=== PATIENT | female | born 1985 | race Caucasian/White ===

== ENCOUNTER 2017-09-26 11:36 | Emergency (ER) | payer MEDICAID, SELFPAY ==
[2017-09-26 11:38] VITALS: BP 119/80; PULSE 78; RESP 16; TEMP 37.2; O2SAT 99; BMI 31.7
--- NOTE | 2017-09-26 12:18 | CT_ITS ---
STUDY: CT ABDOMEN AND PELVIS WITH CONTRAST REASON FOR EXAM: Female, 32 years old. Bloody stools since yesterday. RADIATION DOSAGE (If Supplied By Facility): CTDIvol = ( 16.31 ) mGy, DLP = ( 1080.31 ) mGycm TECHNIQUE: Transaxial images were obtained from the dome of the diaphragm to the symphysis pubis with oral contrast. 100 ml of Isovue 300 contrast was administered. Sagittal and coronal images were reconstructed. Individualized dose optimization techniques were used for this CT. COMPARISON: Comparison is made with prior study dated June 02, 2015. FINDINGS: Mild degree of increased linear markings at the lung bases with areas of confluence worse on the right side. This is suggestive of a bibasilar atelectasis. The visualized portions of the heart are within normal limits. There is a 9.1 mm x 12.6 mm focal area of enhancement along the medial aspect of the right lobe of the liver adjacent to the falciform ligament. This may represent a small hemangioma. Normal gallbladder and extrahepatic biliary system. Normal spleen. Normal pancreas. There is a small, circumscribed, smooth, low attenuation left adrenal mass, consistent with an adrenal adenoma. This is unchanged. Normal right adrenal gland. Normal right kidney. Normal left kidney. Normal visualized stomach. Normal small intestine. Mild degree of diffuse thickening of the sigmoid colon and descending colon. Colitis should be ruled out. Scattered sigmoid diverticula are present. The appendix is visualized and appears normal. Normal abdominal aorta. Normal inferior vena cava. Normal retroperitoneum. Normal urinary bladder. There is absence of the uterus consistent with a prior hysterectomy. There is a small umbilical hernia containing fat. Deformity of the anterior superior endplates of the L4 and L5 vertebrae in keeping with limbus vertebrae. CT/Abdomen/Pelvis WITH Contrast IMPRESSION: Findings suggestive of colitis involving the descending colon and sigmoid colon. Electronically Signed: Esteban Alvarenga MD at 14:26 EDT Tel [phone], Service support ,
--- NOTE | 2017-09-26 12:21 | ED.DCSUM_ITS ---
- ER Visit Summary Date of Service: 09/26/17 Chief Complaint: Abdominal pain, nausea and vomiting History of Present Illness: The patient is a 32 F with lower abdominal cramping over the past 2 days. She had loose stool with some mucus and blood since yesterday as well. She reports mild vomiting. She has had no fever or chills. She denies recent travel. She has not been drinking well water. She has no history of IBS. Physical Examination: Vital signs are unremarkable. Patient's lying in bed no acute distress. She is nontoxic appearing. Head neck examination is unremarkable. Heart is regular rate and rhythm. Lung sounds are clear. Abdomen is soft with tenderness in the epigastric region as well as across the lower abdomen. There is no guarding or rebound. Active bowel sounds are noted throughout. Test Results: CBC reveals a white count 11.7 with normal differential. Chemistry studies are normal. LFTs and lipase are normal. Urinalysis is normal. CT abdomen pelvis with contrast reveals colitis of the descending and sigmoid colon. Emergency Department Course and Treatment: Patient is given 0.5 mg of Dilaudid and 6.25 mg of Phenergan. On repeat evaluation she is much more comfortable. My suspicion for ischemic colitis is very low. I believe she either has bacterial or viral etiology of her colitis. She will be treated with a course of Augmentin as she does have an allergy to Cipro. She be given Phenergan for home as well. Treatment Plan: [] Disposition: Discharge Impression: Colitis This note was generated with [employer] dictation software. It may contain incorrect words, spelling, and punctuation that were not noted in review of the chart prior to signing ED Disposition - Plan for ED Patient: Chief Complaint: Abd Pain Referrals: Saleem Admas MD [NON-STAFF] -
[2017-09-26] MEDS: 0.9% Normal Saline 1,000 ML 150 ML IV (12:38)
[2017-09-26] MEDS: HYDROmorphone 1 MG/ML Syringe 0.5 MG IV (12:39)
[2017-09-26] MEDS: proMETHazine 25 MG/ML Syringe 6.25 MG IV (12:39)
[2017-09-26 12:41] LABS: Bacteria 0 SEEN /hpf (None Seen); Mucous, Urine 0 SEEN /hpf (<or=2+); Red Blood Cells-Urine 0 SEEN /hpf (0-5); White Blood Cells 0 SEEN /hpf (0-5)
[2017-09-26 12:49] LABS: Color, Urine Yellow (Yellow); Glucose, Dipstick Normal (Normal); Ketone-Dipstick Negative (Negative); Leukocyte Esterase-Dipstick Negative /ul (Negative); Nitrite-Dipstick Negative (Negative); Occult Blood-Urine Negative /ul (Negative); Protein-Dipstick Negative (Negative); Urine Bilirubin Dipstick Negative (Negative); Urine Clarity Clear (Clear); Urine Urobilinogen Normal (Normal)
[2017-09-26 12:50] LABS: Absolute Lymphocyte Count 2.31 X10^3/ul (0.83-4.51); Absolute Neutrophil Count 8.1 X10^3/uL (2.0-7.7); Basophil# 0.05 X10^3/uL; Basophil% 0.4 % (0-1); Eosinophil# 0.18 X10^3/uL; Eosinophils% 1.5 % (0-5); Hematocrit 38.6 % (37-47); Hemoglobin 13.2 g/dl (12.0-15.0); Lymphocyte # 2.31 X10^3/ul (4.0); Lymphocyte % 19.8 % (19-41); Mean Corp Hgb Conc 34.2 g/gl (32-36); Mean Corpuscular Hgb 30.2 pg (27.0-32.0); Mean Corpuscular Volume 88.3 fL (81-99); Mean Platelet Vol. 12.5 fl (6.2-12.0); Monocyte# 0.99 X10^3/uL; Monocyte% 8.5 % (0-10); Neutrophil # 8.13 X10^3/uL (2.7-7.7); Neutrophil % 69.6 % (47-70); POSITIVE COUNT NO; POSITIVE DIFFERENTIAL NO; POSITIVE MORPHOLOGY NO; Platelet Count 206 K/mm3 (150-450); RBC Distribution Width SD 38.2 fl (35.1-43.9); Red Blood Count 4.37 M/mm3 (4.2-5.4); White Blood Count 11.7 K/mm3 (4.4-11.0)
[2017-09-26 12:57] LABS: Squamous Epithelial Cells - UA 0-5 SEEN /hpf (5-10)
[2017-09-26 13:02] LABS: AST(SGOT) 11 U/L (15-37); Alanine Aminotransfer ALT/SGPT 13 U/L (13-56); Albumin, Serum 3.4 g/dL (3.2-5.0); Alkaline Phosphatase 104 U/L (45-117); Anion Gap 9 (5-15); BUN 10 mg/dL (7-18); BUN/Creat Ratio 16.3 RATIO (10-20); Bilirubin, Direct 0.08 mg/dL (0.00-0.30); Calcium,Total 9.1 mg/dL (8.5-10.1); Chloride 108 mmol/L (98-107); Creatinine, Serum 0.62 mg/dL (0.55-1.02); EST Glomerular Filtration Rate 119 mL/min (>60); Est Glom Filt Rate - Afr Amer 144 mL/min (>60); Globulin 3.6 g/dL (2.2-4.2); Glucose 79 mg/dL (74-106); Lipase 162 U/L (73-393); Potassium 3.8 mmol/L (3.5-5.1); Sodium Level 141 mmol/L (136-145)
[2017-09-26 14:35] VITALS: RESP 17
--- NOTE | 2017-09-26 15:52 | ED.DEP ---
ED Disposition - Plan for ED Patient: Disposition: Home or Assisted Living Chief Complaint: Abd Pain Instructions: ED Gastroenteritis Bacterial Prescriptions: proMETHazine tablet [Phenergan] 0.5 - 1 tab PO Q6H PRN PRN #10 tablet PRN Reason: Nausea Amox/Clavulanate Tablet [Augmentin Tablet] 875 mg PO Q12H #20 tablet Referrals: Saleem Adams MD [NON-STAFF] - 1 Week
[2017-09-26] MEDS: Amox/Clavulanate 875 MG Tablet PO (16:06)
== END 2017-09-26 16:11 | disposition home or self-care (01) ==
PROVIDERS: Emergency Provider Emergency Medicine; Family Provider Family Medicine; PCP Family Medicine
DX: K52.9 Noninfective gastroenteritis and colitis, unspecified (principal); J45.909 Unspecified asthma, uncomplicated; Z72.0 Tobacco use; F32.9 Major depressive disorder, single episode, unspecified
CPT/HCPCS: 74177; 80048; 80076; 81001; 83690; 85025; 99284; J7030; Q9967; A4216

== ENCOUNTER 2017-10-18 15:22 | Emergency (ER) | payer MEDICAID, SELFPAY ==
--- NOTE | 2017-10-18 15:40 | DT_ITS ---
This patient was seen during an EMR downtime October 16, 2017 - October 23, 2017. This patient may have a combination of paper and electronic documentation or all paper documentation. All documentation is viewable within the e-chart portion of [facility] for each patient visit.
--- NOTE | 2017-10-18 15:55 | CT_ITS ---
STUDY: CT ABDOMEN AND PELVIS WITH CONTRAST REASON FOR EXAM: Female, 32 years old. Lower abdominal pain RADIATION DOSAGE (If Supplied By Facility): CTDIvol = ( 15.46 ) mGy, DLP = ( 1046.55 ) mGycm TECHNIQUE: Transaxial images were obtained from the dome of the diaphragm to the symphysis pubis without oral contrast. 100ML ml of Isovue 300 contrast was administered. Sagittal and coronal images were reconstructed. Individualized dose optimization techniques were used for this CT. COMPARISON: None. FINDINGS: The visualized lung bases are unremarkable. The visualized portions of the heart are within normal limits. Normal liver. Normal gallbladder and extrahepatic biliary system. Normal spleen. Normal pancreas. Normal bilateral adrenal glands. Normal right kidney. 2 stones are seen in left kidney measuring 3 and 2 mm. There is no hydronephrosis. Normal visualized stomach. Normal small intestine. There is diverticulosis, with thickening of the sigmoid colon wall, and pericolonic inflammation changes consistent with acute diverticulitis. The appendix is visualized and appears normal. Normal abdominal aorta. Normal inferior vena cava. Normal retroperitoneum. Normal urinary bladder. Normal abdominal wall. Normal osseous structures. CT/Abdomen/Pelvis WITH Contrast IMPRESSION: Sigmoid diverticulitis. 2 stones are seen in left kidney measuring 3 and 2 mm. There is no hydronephrosis. Electronically Signed: Dena Caro MD at 2:49 EDT Tel , Service support ,
[2017-10-21 08:09] LABS: AST(SGOT) 17 U/L (15-37); Alanine Aminotransfer ALT/SGPT 17 U/L (13-56); Albumin, Serum 3.8 g/dL (3.2-5.0); Alkaline Phosphatase 124 U/L (45-117); Anion Gap 6 (5-15); BUN 9 mg/dL (7-18); BUN/Creat Ratio 13.6 RATIO (10-20); Calcium,Total 9.4 mg/dL (8.5-10.1); Chloride 109 mmol/L (98-107); Creatinine, Serum 0.66 mg/dL (0.55-1.02); EST Glomerular Filtration Rate 110 mL/min (>60); Est Glom Filt Rate - Afr Amer 133 mL/min (>60); Globulin 3.8 g/dL (2.2-4.2); Glucose 74 mg/dL (74-106); Potassium 4.4 mmol/L (3.5-5.1); Protein, Total 7.6 g/dL (6.4-8.2); Sodium Level 143 mmol/L (136-145)
[2017-10-21 09:28] LABS: White Blood Count 9.9 K/mm3 (4.4-11.0)
[2017-10-21 09:29] LABS: Absolute Lymphocyte Count 3.16 X10^3/ul (0.83-4.51); Absolute Neutrophil Count 5.8 X10^3/uL (2.0-7.7); Basophil% 0.3 % (0-1); Eosinophils% 2.5 % (0-5); Hemoglobin 14.8 g/dl (12.0-15.0); Lymphocyte # 3.16 X10^3/ul (4.0); Mean Corp Hgb Conc 33.6 g/gl (32-36); Mean Corpuscular Hgb 30.1 pg (27.0-32.0); Mean Corpuscular Volume 89.4 fL (81-99); Mean Platelet Vol. 11.8 fl (6.2-12.0); Monocyte# 0.63 X10^3/uL; Monocyte% 6.4 % (0-10); Neutrophil % 58.7 % (47-70); POSITIVE COUNT NO; POSITIVE DIFFERENTIAL NO; POSITIVE MORPHOLOGY NO; Platelet Count 232 K/mm3 (150-450); RBC Distribution Width CV 12.2 % (11.6-14.6); RBC Distribution Width SD 39.4 fl (35.1-43.9); Red Blood Count 4.92 M/mm3 (4.2-5.4)
[2017-10-21 09:30] LABS: Basophil# 0.03 X10^3/uL; Eosinophil# 0.25 X10^3/uL; Erythrocyte Sedimentation Rate 15 mm/hr (0-20)
== END 2017-10-18 18:17 | disposition home or self-care (01) ==
PROVIDERS: Emergency Provider Emergency Medicine; Family Provider Family Medicine; PCP Family Medicine
DX: R10.9 Unspecified abdominal pain (principal); R11.2 Nausea with vomiting, unspecified; K92.1 Melena; J45.909 Unspecified asthma, uncomplicated; F44.5 Conversion disorder with seizures or convulsions; I73.00 Raynaud's syndrome without gangrene; F17.210 Nicotine dependence, cigarettes, uncomplicated; Z79.899 Other long term (current) drug therapy; Z53.21 Procedure and treatment not carried out due to patient leaving prior to being seen by health care provider
CPT/HCPCS: 36415; 74177; 80053; 85025; 85652; 96361; 96374; 96375; 99284; J7030; Q9967; A4216; J2405

== ENCOUNTER 2017-12-08 19:35 | Emergency (ER) | payer MEDICAID, SELFPAY ==
[2017-12-08 19:36] VITALS: BP 136/80; PULSE 99; RESP 18; TEMP 36.4; O2SAT 100; BMI 30.3
--- NOTE | 2017-12-08 20:32 | CT_ITS ---
STUDY: CT ABDOMEN AND PELVIS WITHOUT CONTRAST REASON FOR EXAM: Female, 32 years old. Lower abdominal pain RADIATION DOSAGE (If Supplied By Facility): CTDIvol = ( 8.18 ) mGy, DLP = ( 462.33 ) mGycm TECHNIQUE: Transaxial images were obtained from the dome of the diaphragm to the symphysis pubis without oral contrast, and without intravenous contrast. Sagittal and coronal images were reconstructed. Individualized dose optimization techniques were used for this CT. COMPARISON: October 18, 2017 CT scan abdomen and pelvis, September 26, 2017 CT scan abdomen and pelvis, June 24, 2014 CT scan abdomen and pelvis FINDINGS: There is trace lower lobe atelectasis. The visualized portions of the heart are within normal limits. Normal liver. Normal gallbladder and extrahepatic biliary system. Normal spleen. Normal pancreas. Normal bilateral adrenal glands. Normal right kidney. There is a 2 mm and 1 mm stone visualized in the left kidney. There is minimal left side extrarenal pelvis. There is no evidence of a stone along the course of the left ureter. There are phleboliths in the pelvis. These are stable since multiple prior studies dating back to June 24, 2014. The stomach is full of food contents. Normal small intestine. There is moderate stool within the ascending colon. There is diverticulosis without visualized diverticulitis. The appendix is visualized and appears normal. Normal abdominal aorta. Normal inferior vena cava. Normal retroperitoneum. Normal urinary bladder. There is absence of the uterus consistent with a prior hysterectomy. There are multiple small nonspecific inguinal lymph nodes. There is a fatty umbilical hernia with an opening of 9.7 mm through which 2.8 x 1.3 cm of fat herniates similar to the prior studies. There is multilevel degenerative change. There are Schmorl's nodes at L3-L4 and L5 with accompanying degenerative limbus vertebra stable since multiple prior studies. At L3-L4 there is disc space narrowing broad disc bulge and mild neural foramina narrowing there is significant central stenosis. At L4-L5 there is a minimal broad disc bulge without neural foramina narrowing or central stenosis. There is degenerative change of the SI joints. There are tubal ligation clips are present. CT/Abdomen/Pelvis without Cont IMPRESSION: Constipation. No evidence of obstructing renal ureteral bladder calculi stable stones in the left kidney no evidence of hydronephrosis. Stable phleboliths in the pelvis Postoperative change status post hysterectomy. No evidence of appendicitis. Electronically Signed: Eloisa Stinson MD at 22:26 EDT Tel , Service support ,
--- NOTE | 2017-12-08 20:35 | ED.DCSUM_ITS ---
- ER Visit Summary Date of Service: 12/08/17 Chief Complaint: Lower abdominal pain History of Present Illness: The patient is a 32 F diagnosed with colitis. She reports no improvement after being on Augmentin and therefore followed up with surgery. She was scheduled to have a colonoscopy this past week but was unable to tolerate the prep. She is scheduled for another scope with Dr. Mujica. Patient states tonight around 5 PM her pain was very sharp and then she has had worsening abdominal pain since that time. She reports a fever of 101 last night. She denies urinary symptoms. Physical Examination: Vital signs unremarkable. She is afebrile. Head neck examination is normal. Heart is regular rate and rhythm. Lung sounds are clear. Abdomen is soft with diffuse tenderness, worse in the suprapubic region. There is no guarding or rebound. Hypoactive bowel sounds are noted throughout. Back examination reveals mild left CVA tenderness. Test Results: CBC was a white count 11.7 with normal differential. Chemistry studies normal. Urinalysis normal. CT flank shows stable stones in the left kidney. There is no evidence of appendicitis. She is evidence of diverticulosis without diverticulitis. She has moderate stool but noted in the ascending colon. Emergency Department Course and Treatment: Patient was given Dilaudid, Phenergan , and IV fluids. On repeat evaluation she complains of continued pain. I did do an oars report. Last prescriptions were filled in 2016 per the report tonrichelle. She be given a short course of Percocet and Phenergan. Dr. Mujica's office is supposed to be calling her for scheduling of her colonoscopy. Treatment Plan: [] Disposition: Discharge Impression: Abdominal pain, uncertain etiology This note was generated with [employer] dictation software. It may contain incorrect words, spelling, and punctuation that were not noted in review of the chart prior to signing ED Disposition - Plan for ED Patient: Chief Complaint: Abd Pain Referrals: Rashaun Narvaez MD [Primary Care Provider] -
[2017-12-08 20:38] LABS: Bacteria 0 SEEN /hpf (None Seen); Mucous, Urine 0 SEEN /hpf (<or=2+)
[2017-12-08 20:44] LABS: Color, Urine Yellow (Yellow); Glucose, Dipstick Normal (Normal); Ketone-Dipstick Negative (Negative); Leukocyte Esterase-Dipstick 25 /ul (Negative); Nitrite-Dipstick Negative (Negative); Occult Blood-Urine 10 /ul (Negative); Protein-Dipstick 30 mg/dl (Negative); Specific Gravity, Urine 1.025 (1.002-1.030); Urine Bilirubin Dipstick Negative (Negative); Urine Clarity Sl. Cloudy (Clear); Urine Urobilinogen 1 mg/dl (Normal)
[2017-12-08] MEDS: proMETHazine 25 MG/ML Syringe 12.5 MG IV (20:57)
[2017-12-08] MEDS: HYDROmorphone 1 MG/ML Syringe 0.5 MG IV (20:57)
[2017-12-08] MEDS: 0.9% Normal Saline 1,000 ML 150 ML IV (20:58)
[2017-12-08 20:59] LABS: Absolute Lymphocyte Count 3.47 X10^3/ul (0.83-4.51); Basophil# 0.06 X10^3/uL; Basophil% 0.5 % (0-1); Eosinophil# 0.34 X10^3/uL; Eosinophils% 2.9 % (0-5); Hematocrit 41.5 % (37-47); Hemoglobin 14.3 g/dl (12.0-15.0); Lymphocyte # 3.47 X10^3/ul (4.0); Lymphocyte % 29.7 % (19-41); Mean Corp Hgb Conc 34.5 g/gl (32-36); Mean Corpuscular Volume 87.2 fL (81-99); Mean Platelet Vol. 12.4 fl (6.2-12.0); Monocyte# 0.81 X10^3/uL; Monocyte% 6.9 % (0-10); Neutrophil # 6.98 X10^3/uL (2.7-7.7); Neutrophil % 59.8 % (47-70); POSITIVE COUNT NO; POSITIVE DIFFERENTIAL NO; POSITIVE MORPHOLOGY NO; Platelet Count 225 K/mm3 (150-450); RBC Distribution Width CV 12.1 % (11.6-14.6); RBC Distribution Width SD 38.5 fl (35.1-43.9); Red Blood Count 4.76 M/mm3 (4.2-5.4); White Blood Count 11.7 K/mm3 (4.4-11.0)
[2017-12-08 21:40] LABS: Anion Gap 4 (5-15); BUN 10 mg/dL (7-18); BUN/Creat Ratio 13.5 RATIO (10-20); Calcium,Total 9.2 mg/dL (8.5-10.1); Chloride 107 mmol/L (98-107); Creatinine, Serum 0.74 mg/dL (0.55-1.02); EST Glomerular Filtration Rate 96 mL/min (>60); Est Glom Filt Rate - Afr Amer 116 mL/min (>60); Estimated Creatinine Clearance 82.36 ml/min; Glucose 99 mg/dL (74-106); Potassium 4.8 mmol/L (3.5-5.1); Sodium Level 139 mmol/L (136-145)
[2017-12-08 21:52] LABS: Red Blood Cells-Urine 0-5 SEEN /hpf (0-5); Squamous Epithelial Cells - UA 5-10 SEEN /hpf (5-10); White Blood Cells 0-5 SEEN /hpf (0-5)
--- NOTE | 2017-12-08 23:29 | ED.DEP ---
ED Disposition - Plan for ED Patient: Disposition: Home or Assisted Living Chief Complaint: Abd Pain Instructions: ED Abdominal Pain Unkn Cause Prescriptions: Oxycodone HCl/Acetaminophen [Percocet 5/325] 1 tablet PO Q6H PRN PRN 3 Days #10 tablet PRN Reason: Pain proMETHazine tablet [Phenergan] 25 mg PO Q6H PRN PRN #10 tablet PRN Reason: Nausea Referrals: Georges Weller MD [STAFF PHYSICIAN] - As soon as possible
[2017-12-08 23:41] VITALS: BP 115/52; PULSE 52; RESP 17; O2SAT 98
[2017-12-08] MEDS: oxyCODONE 5 MG Tablet PO (23:47)
== END 2017-12-08 23:48 | disposition home or self-care (01) ==
PROVIDERS: Emergency Provider Emergency Medicine; Family Provider Family Medicine; PCP Family Medicine
DX: R10.30 Lower abdominal pain, unspecified (principal); K57.30 Diverticulosis of large intestine without perforation or abscess without bleeding; N20.0 Calculus of kidney; Z87.19 Personal history of other diseases of the digestive system; Z87.442 Personal history of urinary calculi; Z90.710 Acquired absence of both cervix and uterus; Z72.0 Tobacco use
CPT/HCPCS: 74176; 80048; 81001; 85025; 96361; 96374; 96375; 99284; J7030

== ENCOUNTER 2018-03-19 23:48 | Emergency (ER) | payer MEDICAID, SELFPAY ==
[2018-03-19 23:48] VITALS: BP 154/119; PULSE 112; RESP 24; TEMP 36.2; BMI 27.4
[2018-03-20 00:57] VITALS: BP 137/96; PULSE 102; RESP 22; O2SAT 100
[2018-03-20 01:04] LABS: Bacteria 0 SEEN /hpf (None Seen); Mucous, Urine 0 SEEN /hpf (<or=2+)
[2018-03-20 01:06] LABS: Color, Urine Yellow (Yellow); Glucose, Dipstick Normal (Normal); Ketone-Dipstick Negative (Negative); Leukocyte Esterase-Dipstick 500 /ul (Negative); Nitrite-Dipstick Negative (Negative); Occult Blood-Urine 25 /ul (Negative); Protein-Dipstick 15 mg/dl (Negative); Urine Bilirubin Dipstick Negative (Negative); Urine Clarity Sl. Cloudy (Clear); Urine Urobilinogen Normal (Normal)
[2018-03-20 01:17] LABS: Internal QC Validated? YES +Cl - CLEAR BKGD; Pregnancy, Urine Negative Negative
[2018-03-20 01:22] LABS: Red Blood Cells-Urine 5-10 SEEN /hpf (0-5); Squamous Epithelial Cells - UA 25-50 SEEN /hpf (5-10); White Blood Cells 50-100 SEEN /hpf (0-5)
--- NOTE | 2018-03-20 01:22 | ED.RN ---
Addendum entered by Carlyn Schultz 03/20/18 01:23: NO DISTRESS NOTED PT AMBULATED TEXTING ON PHONE. Original Note: PT WALKED OUT AND STATED THIS PLACE IS A FUCKING JOKE. SEVERAL NURSES ATTEMPTED TO START AN I.V. ON PT AND WITHOUT SUCCESS.
--- NOTE | 2018-03-20 01:25 | ED.RN ---
DR MALDONADO WAS IN A ROOM DOING A PROCEDURE WITH ANOTHER PATIENT THIS PATIENTS VEINS KEPT BLOWING AND I STATED WHEN HE WAS DONE I WOULD TALK TO HIM ABOUT DOING IM INJECTIONS. THIS PATIENT GOT MAD AT THIS NURSE AND REGISTRATION AND STARTED SLAMMING THE CABINETS AND CALLED THE REGISTRATION LADY A BITCH AND THEN SHE GOT DRESSED AND WALKED OUT STATING SHE WAS GOING TO ANOTHER HOSPITAL
--- NOTE | 2018-03-20 08:24 | ED.DCSUM_ITS ---
- ER Visit Summary Date of Service: 03/20/18 Chief Complaint: Flank pain History of Present Illness: The patient is a 32 F presenting for evaluation secondary to flank pain. Patient reports that today she had a sudden onset of severe left-sided flank pain. Patient reports that she has had a history of kid yesenia stones in the past. Patient denies that she is having any sort of fevers dysuria or hematuria associated with this but does endorse that she is getting vomiting. Physical Examination: Vital signs notable for heart rate of 102. Well-nourished well-developed female rolling around in the bed crying. Head normocephalic. Moist mucous membranes. Neck was supple. Heart was tachycardic and regular. Lung sounds clear. Abdomen was soft nontender. Left-sided CVA tenderness to percussion. Normal pulses. Test Results: Bedside ultrasound shows no evidence of hydronephrosis. Urinalysis does show evidence of leukocytes, no evidence of RBCs Emergency Department Course and Treatment: Patient presented for evaluation secondary to flank pain. I immediately performed a bedside ultrasound on the patient which did not demonstrate any evidence of hydronephrosis. IV was going to be established and the patient was going to be given Toradol fluids and Zofran. Patient refused these medications and eloped from the emergency department. Patient eloped prior to receiving the results that she potentially has a urinary tract infection. Disposition: Elopement Impression: 1. UTI 2. Flank pain This note was generated with [employer] dictation software. It may contain incorrect words, spelling, and punctuation that were not noted in review of the chart prior to signing ED Disposition - Plan for ED Patient: Disposition: Against Medical Advice Chief Complaint: Complaint Referrals: Rashaun Narvaez MD [Primary Care Provider] -
== END 2018-03-20 01:15 | disposition left against medical advice (07) ==
PROVIDERS: Emergency Provider Emergency Medicine; Family Provider Family Medicine; PCP Family Medicine
DX: N39.0 Urinary tract infection, site not specified (principal); R10.9 Unspecified abdominal pain; Z87.442 Personal history of urinary calculi
CPT/HCPCS: 81001; 81025; 96361; 96374; 96375; 99281; A4216

== ENCOUNTER 2018-04-04 00:20 | Emergency (ER) | payer MEDICAID, SELFPAY ==
[2018-04-04 00:22] VITALS: BP 119/73; PULSE 131; RESP 22; TEMP 35.6; BMI 25.7
[2018-04-04 00:47] LABS: Mucous, Urine 0 SEEN /hpf (<or=2+)
[2018-04-04 00:48] LABS: Color, Urine Red (Yellow); Glucose, Dipstick Normal (Normal); Ketone-Dipstick 15 mg/dl (Negative); Leukocyte Esterase-Dipstick 500 /ul (Negative); Nitrite-Dipstick Negative (Negative); Occult Blood-Urine 250 /ul (Negative); Protein-Dipstick 500 mg/dl (Negative); Urine Bilirubin Dipstick Negative (Negative); Urine Clarity Turbid (Clear); Urine Urobilinogen Normal (Normal)
[2018-04-04] MEDS: 0.9% Normal Saline 1,000 ML 999 ML IV (00:57)
[2018-04-04 00:59] LABS: Bacteria 2+ /hpf (None Seen); Red Blood Cells-Urine 50-100 SEEN /hpf (0-5); Squamous Epithelial Cells - UA 0-5 SEEN /hpf (5-10); White Blood Cells 25-50 SEEN /hpf (0-5)
[2018-04-04 01:00] LABS: Internal QC Validated? YES +Cl - CLEAR BKGD; Pregnancy, Urine Negative Negative
--- NOTE | 2018-04-04 01:06 | ED.RN ---
PT REQUESTS MEDICATION FOR PAIN, DR. HONEYCUTT INFORMED. NO NEW ORDERS AT THIS TIME. WILL CONTINUE TO MONITOR.
[2018-04-04 01:08] LABS: Absolute Lymphocyte Count 2.85 X10^3/ul (0.83-4.51); Absolute Neutrophil Count 5.6 X10^3/uL (2.0-7.7); Basophil# 0.09 X10^3/uL; Basophil% 0.9 % (0-1); Eosinophil# 0.19 X10^3/uL; Hematocrit 41.3 % (37-47); Hemoglobin 14.1 g/dl (12.0-15.0); Lymphocyte # 2.85 X10^3/ul (4.0); Lymphocyte % 29.6 % (19-41); Mean Corp Hgb Conc 34.1 g/gl (32-36); Mean Corpuscular Hgb 30.9 pg (27.0-32.0); Mean Corpuscular Volume 90.4 fL (81-99); Mean Platelet Vol. 10.5 fl (6.2-12.0); Monocyte# 0.91 X10^3/uL; Monocyte% 9.5 % (0-10); Neutrophil # 5.57 X10^3/uL (2.7-7.7); Neutrophil % 57.9 % (47-70); Platelet Count 603 K/mm3 (150-450); RBC Distribution Width SD 42.5 fl (35.1-43.9); Red Blood Count 4.57 M/mm3 (4.2-5.4); White Blood Count 9.6 K/mm3 (4.4-11.0)
[2018-04-04 01:09] LABS: POSITIVE COUNT NO; POSITIVE DIFFERENTIAL NO; POSITIVE MORPHOLOGY NO
[2018-04-04 01:32] LABS: AST(SGOT) 17 U/L (15-37); Alanine Aminotransfer ALT/SGPT 22 U/L (13-56); Albumin, Serum 4.4 g/dL (3.2-5.0); Alkaline Phosphatase 145 U/L (45-117); Anion Gap 10 (5-15); BUN 22 mg/dL (7-18); BUN/Creat Ratio 16.2 RATIO (10-20); Calcium,Total 9.6 mg/dL (8.5-10.1); Chloride 101 mmol/L (98-107); Creatinine, Serum 1.36 mg/dL (0.55-1.02); EST Glomerular Filtration Rate 48 mL/min (>60); Est Glom Filt Rate - Afr Amer 58 mL/min (>60); Globulin 4.5 g/dL (2.2-4.2); Glucose 68 mg/dL (74-106); Potassium 3.7 mmol/L (3.5-5.1); Protein, Total 8.9 g/dL (6.4-8.2); Sodium Level 134 mmol/L (136-145)
--- NOTE | 2018-04-04 01:39 | CT_ITS ---
STUDY: CT ABDOMEN AND PELVIS WITH CONTRAST REASON FOR EXAM: Female, 33 years old. Pain and blood with urination. Left sided internal ureteral stent placed last week for treatment of urinary tract stones. RADIATION DOSAGE (If Supplied By Facility): CTDIvol = ( 10.76 ) mGy, DLP = ( 1201.00 ) mGycm TECHNIQUE: Transaxial images were obtained from the dome of the diaphragm to the symphysis pubis without oral contrast. 100ML ml of Isovue 300 contrast was administered. Sagittal and coronal images were reconstructed. Individualized dose optimization techniques were used for this CT. COMPARISON: December 08, 2017. June 24, 2014. FINDINGS: The visualized lung bases are unremarkable. The visualized portions of the heart are within normal limits. Normal liver. Normal gallbladder and extrahepatic biliary system. Normal spleen. Normal pancreas. Normal bilateral adrenal glands. Normal right kidney. Subcentimeter left renal cortical cyst. Left internal ureteral stent with the proximal and distal pigtails in the renal pelvis and bladder respectively. Normal visualized stomach. Normal small intestine. Sigmoid diverticulosis. The appendix is visualized and appears normal. Normal abdominal aorta. Normal inferior vena cava. Normal retroperitoneum. No intra-abdominal free air. Normal urinary bladder. Postoperative changes of bilateral tubal ligation. Uterus not visualized suggestive of hysterectomy. No adnexal masses seen There is a small umbilical hernia containing fat. Nondisplaced fracture involving the anterior superior corner of the L4 and L5 vertebral bodies unchanged since 2014. This space narrowing L3-L4. CT/Abdomen/Pelvis W IV Cont ONLY IMPRESSION: No acute findings in the abdomen or pelvis. Left internal ureteral stent in its expected location. Sigmoid diverticulosis. Normal bladder. Small left renal cyst. Electronically Signed: Bran Wu MD at 2:58 EST , Service support ,
[2018-04-04 01:40] LABS: Lactic Acid 1.2 mmol/L (0.4-2.0)
[2018-04-04] MEDS: oxyCODONE 5 MG Tablet 10 MG PO (01:43)
[2018-04-04] MEDS: 0.9% Normal Saline 1,000 ML 150 ML IV (01:44)
[2018-04-04 02:36] VITALS: BP 128/89; PULSE 99; RESP 15; O2SAT 99
--- NOTE | 2018-04-04 03:23 | ED.VISSUMM ---
- ER Visit Summary Date of Service: 04/04/18 Chief Complaint: Blood in urine History of Present Illness: The patient is a 33 F who states that she was recently seen at [place] and sent to [facility] for infected kidney stone. She underwent nephrostomy tube and stent placement with Dr. Rogel. She states that she was discharged. She has been on an unknown antibiotic but believes it was ciprofloxacin. Even though the patient listed as an allergy. Patient states that things were going around just fine and then she has developed pain in both flanks and blood in her urine. She states she is not been able to eat or drink much all day because of nausea. He states that she called her urologist and came to this emergency room set of [place] because she does not have transportation there. She is supposed to go back to [place] next week for stent change, kidney stone removal. Physical Examination: Afebrile vital signs show 119/73 with a heart rate of 131. Gen: Well-nourished well-developed Head: Normocephalic atraumatic Eyes: Perrl EOMI ENT: TMs clear no rhinorrhea moist mucous membranes Neck: Supple no lymphadenopathy no JVD nontender CVS: Regular rate and tachycardic rhythm no murmurs normal S1-S2 Respiratory: No distress clear to auscultation bilaterally chest nontender Abdomen: Soft nontender nondistended normal bowel sounds no masses Back: Subjective bilateral CVA tenderness. The nephrostomy site is clean dry and intact with no erythema ecchymosis or signs of complication. Extremity: Nontender no edema Skin: Normal color no rash Neuro: alert orientated ?3 CN II-XII intact normal strength sensation reflexes gait cerebellar patient observed walking into the department and does not appear uncomfortable with ambulation. Psych: Normal affect normal mood Test Results: White count is normal. Lactic acid is normal. Creatinine 1.36. Urinalysis 25-50 white cells 50-100 red blood cells negative nitrates 2+ bacteria this was sent for culture. CT of the abdomen pelvis with IV contrast showed the stents to be in good placement. There is no obvious renal abscess or perinephric stranding. No obvious complications from nephrostomy tube. Emergency Department Course and Treatment: Patient received IV fluids her heart rate is down to 92 on repeat examination. She also received Toradol. She is eating ice. She is upset that she is not being transferred for admission and is able to text very comfortably. I am going to place her on Keflex. I will write for Zofran. Given prior interactions with the patient (please see prior dictations) I am hesitant to write any narcotic pain medication for her. Impression: 1. Acute urinary tract infection This note was generated with [employer] dictation software. It may contain incorrect words, spelling, and punctuation that were not noted in review of the chart prior to signing ED Disposition - Plan for ED Patient: Disposition: Home or Assisted Living Chief Complaint: Complaint Instructions: ED Kidney Infec Female Prescriptions: proMETHazine tablet [Phenergan] 25 mg PO Q6H PRN PRN #10 tab PRN Reason: Nausea Cephalexin [Keflex] 500 mg PO Q6 #40 cap Additional Instructions: I would recommend that you call your urologist in the morning.
--- NOTE | 2018-04-04 03:29 | ED.DCSUM_ITS ---
- ER Visit Summary Date of Service: 04/04/18 Chief Complaint: Blood in urine History of Present Illness: The patient is a 33 F who states that she was recently seen at [place] and sent to [facility] for infected kidney stone. She underwent nephrostomy tube and stent placement with Dr. Rogel. She states that she was discharged. She has been on an unknown antibiotic but believes it was ciprofloxacin. Even though the patient listed as an allergy. Patient states that things were going around just fine and then she has developed pain in both flanks and blood in her urine. She states she is not been able to eat or drink much all day because of nausea. He states that she called her urologist and came to this emergency room set of [place] because she does not have transportation there. She is supposed to go back to [place] next week for stent change, kidney stone removal. Physical Examination: Afebrile vital signs show 119/73 with a heart rate of 131. Gen: Well-nourished well-developed Head: Normocephalic atraumatic Eyes: Perrl EOMI ENT: TMs clear no rhinorrhea moist mucous membranes Neck: Supple no lymphadenopathy no JVD nontender CVS: Regular rate and tachycardic rhythm no murmurs normal S1-S2 Respiratory: No distress clear to auscultation bilaterally chest nontender Abdomen: Soft nontender nondistended normal bowel sounds no masses Back: Subjective bilateral CVA tenderness. The nephrostomy site is clean dry and intact with no erythema ecchymosis or signs of complication. Extremity: Nontender no edema Skin: Normal color no rash Neuro: alert orientated ?3 CN II-XII intact normal strength sensation reflexes gait cerebellar patient observed walking into the department and does not appear uncomfortable with ambulation. Psych: Normal affect normal mood Test Results: White count is normal. Lactic acid is normal. Creatinine 1.36. Urinalysis 25-50 white cells 50-100 red blood cells negative nitrates 2+ bacteria this was sent for culture. CT of the abdomen pelvis with IV contrast showed the stents to be in good placement. There is no obvious renal abscess or perinephric stranding. No obvious complications from nephrostomy tube. Emergency Department Course and Treatment: Patient received IV fluids her heart rate is down to 92 on repeat examination. She also received Toradol. She is eating ice. She is upset that she is not being transferred for admission and is able to text very comfortably. I am going to place her on Keflex. I will write for Zofran. Given prior interactions with the patient (please see prior dictations) I am hesitant to write any narcotic pain medication for her. Impression: 1. Acute urinary tract infection This note was generated with [employer] dictation software. It may contain incorrect words, spelling, and punctuation that were not noted in review of the chart prior to signing ED Disposition - Plan for ED Patient: Disposition: Home or Assisted Living Chief Complaint: Complaint Instructions: ED Kidney Infec Female Prescriptions: proMETHazine tablet [Phenergan] 25 mg PO Q6H PRN PRN #10 tab PRN Reason: Nausea Cephalexin [Keflex] 500 mg PO Q6 #40 cap Additional Instructions: I would recommend that you call your urologist in the morning.
[2018-04-04] MEDS: Cephalexin 250 MG Capsule 500 MG PO (03:43)
--- NOTE | 2018-04-04 03:44 | ED.RN ---
[facility] CALLED TO TRANSPORT PT HOME.
== END 2018-04-04 03:45 | disposition home or self-care (01) ==
PROVIDERS: Emergency Provider Emergency Medicine; Family Provider Family Medicine; PCP Family Medicine
DX: N39.0 Urinary tract infection, site not specified (principal); N20.0 Calculus of kidney; Z93.6 Other artificial openings of urinary tract status
CPT/HCPCS: 74177; 80053; 81001; 81025; 83605; 85025; 87077; 87086; 87088; 87186; 96360; 96361; 99284; J7030; Q9967

== ENCOUNTER 2018-09-11 01:17 | Emergency (ER) | payer MEDICAID, SELFPAY ==
[2018-09-11 01:19] VITALS: BP 123/98; PULSE 107; RESP 26; TEMP 36.8; O2SAT 98; BMI 24.5
--- NOTE | 2018-09-11 02:04 | CT_ITS ---
HISTORY: RIGHT SIDE ABD PAIN, HX KS, HYSTERECTOMY, SUBSTANCE ABUSE, PSEUDOSEIZURES EXAMINATION: CT Abdomen And Pelvis W/O Contrast TECHNIQUE: Helically acquired images were obtained of the abdomen and pelvis without oral or IV contrast as per renal stone protocol. A radiation dose optimization technique was used for this scan. IV Contrast dosage and agent: None. Oral contrast: None. COMPARISON: 04/04/2018 FINDINGS: Lower thorax: Clear. No pleural effusion or pericardial effusion. Limited non-infusion exam. Allowing for this, negative liver, spleen, pancreas, gallbladder, and biliary system. Both kidneys are normal in position. 2 mm calyceal stone at the upper pole of the left kidney and faint 1-2 mm calyceal stone at the mid pole of the right kidney. Left renal minor pelviectasis. No hydronephrosis or hydroureter. No ureteral stones seen. Multiple pelvic phleboliths. Adrenal glands are not enlarged. Abdominal aorta is normal in caliber. No ascites or retroperitoneal lymph node enlargement. GI tract: Constipation pattern. Normal appendix. Mild sigmoid diverticulosis. No pericolonic inflammatory changes. Pelvis: Nonvisualization of the uterus. Normal urinary bladder. Bilateral tubal ligation clips. No free fluid or lymph node enlargement. Ventral abdominal wall: Small fat-containing umbilical hernia, unchanged. Bones: No acute osseous abnormality. Lumbar spine chronic Schmorl's nodes and chronic limbus type vertebra at the L4 and L5 levels. CT/Abdomen/Pelvis without Cont IMPRESSION: 1. Constipation pattern. Normal appendix and no acute disease seen. 2. Mild diverticulosis coli. 3. Bilateral small nonobstructing renal stones and additional chronic changes, as above Individualized dose optimization techniques were used for this CT. at 0336 Reported and signed by: Parker Ball MD Electronically Signed: Parker Ball, at 3:35 EDT Tel , Service support ,
[2018-09-11 02:11] LABS: Absolute Lymphocyte Count 2.83 X10^3/ul (0.83-4.51); Absolute Neutrophil Count 6.8 X10^3/uL (2.0-7.7); Basophil# 0.04 X10^3/uL; Basophil% 0.4 % (0-1); Eosinophil# 0.37 X10^3/uL; Eosinophils% 3.3 % (0-5); Hematocrit 44.9 % (37-47); Hemoglobin 15.4 g/dl (12.0-15.0); Lymphocyte # 2.83 X10^3/ul (4.0); Lymphocyte % 25.5 % (19-41); Mean Corp Hgb Conc 34.3 g/gl (32-36); Mean Corpuscular Hgb 29.6 pg (27.0-32.0); Mean Corpuscular Volume 86.3 fL (81-99); Mean Platelet Vol. 12.3 fl (6.2-12.0); Monocyte# 0.99 X10^3/uL; Monocyte% 8.9 % (0-10); Neutrophil # 6.84 X10^3/uL (2.7-7.7); Neutrophil % 61.5 % (47-70); POSITIVE COUNT NO; POSITIVE DIFFERENTIAL NO; POSITIVE MORPHOLOGY NO; Platelet Count 208 K/mm3 (150-450); RBC Distribution Width CV 12.5 % (11.6-14.6); White Blood Count 11.1 K/mm3 (4.4-11.0)
[2018-09-11 02:26] LABS: ALB/GLOB Ratio 1.1 RATIO (0.9-2.4); AST(SGOT) 36 U/L (15-37); Alanine Aminotransfer ALT/SGPT 27 U/L (13-56); Albumin, Serum 3.9 g/dL (3.2-5.0); Alkaline Phosphatase 91 U/L (45-117); Anion Gap 7 (5-15); BUN 20 mg/dL (7-18); BUN/Creat Ratio 19.4 RATIO (10-20); Calcium,Total 9.2 mg/dL (8.5-10.1); Chloride 103 mmol/L (98-107); Creatinine, Serum 1.03 mg/dL (0.55-1.02); EST Glomerular Filtration Rate 65 mL/min (>60); Est Glom Filt Rate - Afr Amer 79 mL/min (>60); Estimated Creatinine Clearance 58.62 ml/min; Globulin 3.5 g/dL (2.2-4.2); Glucose 82 mg/dL (74-106); Potassium 4.6 mmol/L (3.5-5.1); Protein, Total 7.4 g/dL (6.4-8.2); Sodium Level 135 mmol/L (136-145)
[2018-09-11] MEDS: HYDROmorphone 1 MG/ML Syringe IM (02:39)
[2018-09-11] MEDS: proMETHazine 25 MG/ML Syringe 12.5 MG IM (02:39)
[2018-09-11] MEDS: 0.9% Normal Saline 1,000 ML 1000 ML IV (02:39)
--- NOTE | 2018-09-11 02:45 | ED.RN ---
UNABLE TO GET IV TWO RN'S ATTEMPTED TO GET AN IV. DR. ADAMS AWARE. PT HAS NO FURTHER NEEDS AT THIS TIME WILL CONTINUE TO MONITOR.
[2018-09-11 03:54] LABS: Mucous, Urine 0 SEEN /hpf (<or=2+); Red Blood Cells-Urine 0 SEEN /hpf (0-5)
[2018-09-11 03:55] LABS: Color, Urine Yellow (Yellow); Glucose, Dipstick Normal (Normal); Ketone-Dipstick Negative (Negative); Leukocyte Esterase-Dipstick 25 /ul (Negative); Nitrite-Dipstick Negative (Negative); Occult Blood-Urine Negative /ul (Negative); Protein-Dipstick Negative (Negative); Specific Gravity, Urine 1.015 (1.002-1.030); Urine Bilirubin Dipstick Negative (Negative); Urine Clarity Clear (Clear); Urine Urobilinogen Normal (Normal)
[2018-09-11 04:03] LABS: Bacteria 1+ /hpf (None Seen); Squamous Epithelial Cells - UA 0-5 SEEN /hpf (5-10); White Blood Cells 0-5 SEEN /hpf (0-5)
--- NOTE | 2018-09-11 04:10 | ED.VISSUMM ---
- ER Visit Summary Date of Service: 09/11/18 Chief Complaint: Flank pain History of Present Illness: The patient is a 33 F who presents with flank pain. This is been present for about 2 days. She complains of severe sharp right flank pain. This does not radiate around to the abdomen. She reports nausea and vomiting. No diarrhea. She also reports dysuria frequency urgency. She reports subjective fevers chills sweats. She does have a history of kidney stones this feels similar. She denies other medical history. Physical Examination: Heart rate 107 respiratory rate 26 afebrile Moist mucous membranes Heart regular tachycardia Lungs are clear M and soft nontender nondistended Patient has bilateral CVA tenderness Alert Test Results: Labs unremarkable. White count 11.1, BUN 20, creatinine 1.03. UA shows 25 leukocyte esterase 1+ bacteria, this was sent for culture. CT the flank shows constipation, normal appendix, no acute disease. No obstructive uropathy. Emergency Department Course and Treatment: We were unable to establish an IV. Therefore patient was given Dilaudid and Phenergan IM. She has multiple allergies listed including 2 Toradol and morphine. She is improved on reevaluation. She does not have a clear explanation of her symptoms based on the above work-up. I did send a urine culture. Patient discharged to follow-up as an outpatient. Treatment Plan: [] Disposition: Discharge Impression: Flank pain This note was generated with [employer] dictation software. It may contain incorrect words, spelling, and punctuation that were not noted in review of the chart prior to signing ED Disposition - Plan for ED Patient: Referrals: Rashaun Narvaez MD [Primary Care Provider] -
--- NOTE | 2018-09-11 04:12 | ED.DEP ---
ED Disposition - Plan for ED Patient: Instructions: ED Flank Pain Uncertain Cause Referrals: Rashaun Narvaez MD [Primary Care Provider] -
[2018-09-11 04:27] VITALS: RESP 16; O2SAT 98
== END 2018-09-11 08:20 | disposition home or self-care (01) ==
PROVIDERS: Emergency Provider Emergency Medicine; Family Provider Family Medicine; PCP Family Medicine
DX: R10.9 Unspecified abdominal pain (principal); R11.0 Nausea; K59.00 Constipation, unspecified; Z87.442 Personal history of urinary calculi; Z72.0 Tobacco use
CPT/HCPCS: 74176; 80053; 81001; 85025; 87086; 87088; 87186; 96372; 96374; 96375; 99285; J7030; A4216

== ENCOUNTER 2019-02-01 17:56 | Emergency (ER) | payer SELFPAY ==
[2019-02-01 17:58] VITALS: BP 124/89; PULSE 100; RESP 16; TEMP 36.6; O2SAT 94; BMI 24.0
--- NOTE | 2019-02-01 19:07 | ED.DCSUM_ITS ---
History of Present Illness Chief Complaint: Overdose Narrative: Patient presenting due to an accidental overdose. Patient reports that she was snorting what she thought was methamphetamine which ended up being a opiates. She overdosed, was found down. She responded to Narcan. She denies being suicidal or homicidal. Past Medical History - Allergies and Home Meds Allergies/Adverse Reactions: Allergies ciprofloxacin [From Cipro] Allergy (Verified 02/01/19 17:58) Hives ciprofloxacin HCl [From Cipro] Allergy (Verified 02/01/19 17:58) Hives levetiracetam [From Keppra] Allergy (Verified 02/01/19 17:58) SEIZURES morphine Allergy (Verified 02/01/19 17:58) Shortness of breath ondansetron HCl [From Zofran] Allergy (Verified 02/01/19 17:58) Hives Sulfa (Sulfonamide Antibiotics) Allergy (Verified 02/01/19 17:58) Hives acetaminophen [From [place]] Adverse Reaction (Verified 02/01/19 17:58) STOMACH CRAMPS hydrocodone bitartrate [From [place]] Adverse Reaction (Verified 02/01/19 17:58) STOMACH CRAMPS ketorolac tromethamine [From Toradol] Adverse Reaction (Verified 02/01/19 17:58) Abd cramps/diarrhea metoclopramide HCl [From Reglan] Adverse Reaction (Verified 02/01/19 17:58) PILAR Primary Care Physician: Rashaun Narvaez MD [Primary Care Provider] - Past Medical History: - - Methamphetamine abuse Surgical History: - - Hysterectomy, tonsillectomy and tubal ligation. Smoking Status: Current every day smoker - Family History Maternal Family History: Reports: No pertinent history Paternal Family History: Reports: No pertinent history Review of Systems All systems negative except as indicated Physical Exam Vital Signs/Narrative: Vital Signs Temp Pulse Resp BP Pulse Ox 02/01/19 17:58 97.9 F 100 16 124/89 H 94 General: Well nourished, Well developed, No Acute Distress Head: Normocephalic, Atraumatic Eyes: Perrl, EOMI ENT: Moist mucous membranes, No rhinorrhea Neck: Supple, Nontender Cardiovascular: Regular rate, Regular rhythm, No murmurs Respiratory: No distress, CTA bilaterally, Chest nontender Abdomen: Soft, Nontender, Nondistended, Normal bowel sounds Back: Nontender, Normal Inspection Extremities: Nontender, No edema Skin: Normal color, No rash Neurological: Alert, Oriented x3, Cranial nerves II-XII grossly intact, Normal Strength, Normal Sensation Psychological: Normal affect, Normal Mood Diagnostic/Tx/Re-eval - Medical Decision Making Patient presented secondary to evaluate accidental opiate overdose. Patient is not suicidal or homicidal. She was observed in the emergency department for 90 minutes did not require any repeat dosing of naloxone. Patient was discharged with follow-up with drug counseling. ED Disposition - Plan for ED Patient: Disposition: Home or Assisted Living Diagnosis: Accidental overdose Instructions: OVERDOSE, Opiate Additional Instructions: Followup with the [facility]
[2019-02-01 19:34] VITALS: BP 102/78; O2SAT 98
== END 2019-02-01 19:38 | disposition home or self-care (01) ==
PROVIDERS: Emergency Provider Emergency Medicine; Family Provider Family Medicine; PCP Family Medicine
DX: T40.601A Poisoning by unspecified narcotics, accidental (unintentional), initial encounter (principal); Y92.9 Unspecified place or not applicable; F17.200 Nicotine dependence, unspecified, uncomplicated; Z88.1 Allergy status to other antibiotic agents; Z88.2 Allergy status to sulfonamides; Z88.5 Allergy status to narcotic agent; Z88.8 Allergy status to other drugs, medicaments and biological substances; F15.10 Other stimulant abuse, uncomplicated
CPT/HCPCS: 99284

== ENCOUNTER 2019-03-18 15:36 | Inpatient (IN) | payer MEDICAID, SELFPAY ==
[2019-03-18 15:37] VITALS: BP 92/73; PULSE 93; RESP 15; TEMP 36.2; O2SAT 97; BMI 22.1
--- NOTE | 2019-03-18 16:22 | ED.RN ---
Trevor- social work at bedside seeing pt. Pt denies SI and HI repeatedly with this RN and social work.
--- NOTE | 2019-03-18 16:36 | CM.ED ---
SOCIAL WORK INFORMANT: NURSEEREN AND DR. GOMEZ REASON FOR REFERRAL: SUBSTANCE ABUSE CHIEF COMPLIANT: PATIENT REPORTS WAS AT [facility] AND CAME TO HOSPITAL FOR DETOX. PATIENT STATES LAST USE WAS YESTERDAY. PATIENT REPORTS USED HEROIN, METH AND ALCOHOL. TRIAGE REPORTED PATIENT WITH SUICIDAL IDEATION. [place] SUICIDE RISK ASSESSMENT COMPLETED WITH PATIENT. PATIENT STATES I THOUGHT THEY ASKED HAVE I EVER HAD THOUGHTS. PATIENT ADMITS TO PAST HX OF SUICIDAL IDEATION IN 2016. PATIENT DENIES ANY CURRENT THOUGHTS, PLAN, OR INTENT. LIVING SITUATION: PATIENT REPORTS IS CURRENTLY HOMELESS. PATIENT STATES WISHES TO COMPLETE DETOX AND GET INTO INPATIENT TREATMENT AND THEN SOBER LIVING. SUBSTANCE ABUSE HISTORY: PATIENT REPORTS USE OF METH, HEROIN, AND ALCOHOL. PATIENT STATES WAS TURNED AWAY FROM [facility] A FEW WEEKS AGO AND OVERDOSED 2X IN A WEEK. PATIENT TEARFUL STATING, I WANT HELP. I CAN'T DO THIS ANYMORE. LEGAL ISSUES: PATIENT DENIES ANY CURRENT LEGAL ISSUES. PATIENT STATES WAS IN [facility] FROM [id number]. PATIENT STATES ONCE RELEASED FROM [facility], RELAPSED. PATIENT STATES I WANT THE HELP SO IT DOESN'T HAPPEN AGAIN. DISCUSSED CASE WITH DR. GOMEZ. RECOMMENDED SITTER PROTOCOL BE DISCONTINUED AT THIS TIME PATIENT DENIES ANY CURRENT SUICIDAL IDEATION. PATIENT ALSO DENIES ANY HOMICIDAL IDEATION. DR. GOMEZ TO ASSESS PATIENT. PLAN: POSSIBLE ADMIT FOR DETOX. SEWER TO FOLLOW. Carlos TOBIN MSW, NON DESTRUCTIVE EVALUATION TECHNICIAN.
[2019-03-18 16:38] LABS: Amphetamine Urine VISTA POSITIVE (<1000 ng/mL); Barbiturate Urine VISTA NEGATIVE (< 200 ng/mL); Benzodiazepine Urine VISTA NEGATIVE (< 200 ng/mL); Cocaine Urine VISTA NEGATIVE (< 300 ng/mL); Ecstacy Urine VISTA NEGATIVE (< 500 ng/mL); Methadone Urine VISTA NEGATIVE (< 300 ng/mL); PCP Urine VISTA NEGATIVE (< 25 ng/mL); THC Urine VISTA POSITIVE (< 50 ng/mL); Vista UDS pH Range 6
--- NOTE | 2019-03-18 16:44 | ED.RN ---
suicide precautions ended at this time per orders.
--- NOTE | 2019-03-18 16:45 | ED.VISSUMM ---
- ER Visit Summary Date of Service: 03/18/19 Chief Complaint: Alcohol, heroin, and methamphetamine withdrawal History of Present Illness: The patient is a 33 F who presents with symptoms of withdrawal from alcohol and heroin and methamphetamines. Patient states her last use was yesterday morning. Patient states she is feeling shaky, restless, and weak. Patient admits to some nausea, vomiting, and diarrhea. Patient admits to subjective fevers and chills. Patient states she has not been through rehab before. Patient states she normally drinks 12 beers per day. Physical Examination: Vital signs are stable. Patient is afebrile. Patient is in no acute distress. Pupils are equal, round, and reactive to light bilaterally. There is mild scleral icterus noted. Oral mucosa is pink and moist. Neck is supple. Trachea is midline. There is no JVD. Heart was regular rate and rhythm. Lungs are clear and equal bilaterally. Abdomen is soft. There is mild diffuse tenderness. There is no rebound or guarding noted. Cranial nerves II through XII are intact. There are no focal motor or sensory deficits noted. Test Results: CBC was essentially within normal limits. Comprehensive metabolic profile showed mild hyponatremia of 133. Total bilirubin was 6.2. Alk phos was 384, ALT was 2540, AST was 1083. Urinalysis does not show any evidence of urinary tract infection. Emergency Department Course and Treatment: Patient was given a dose of Phenergan here. Patient felt better on reevaluation. Case was discussed with the hospitalist. Patient will be admitted for alcohol withdrawal and substance abuse. Patient understood and was agreeable with plan. All questions were answered. Disposition: Admit to hospital Impression: 1. Alcohol withdrawal 2. Substance abuse This note was generated with [employer] dictation software. It may contain incorrect words, spelling, and punctuation that were not noted in review of the chart prior to signing ED Disposition - Plan for ED Patient: Disposition: Acute Care Hospital [facility] Diagnosis: Alcohol withdrawal, Substance abuse Referrals: Rashaun Narvaez MD [Primary Care Provider] -
[2019-03-18 16:48] LABS: Internal QC Validated? YES +Cl - CLEAR BKGD
[2019-03-18 16:49] LABS: Pregnancy, Serum, hCG Quali. NEGATIVE Negative
[2019-03-18 17:28] LABS: Absolute Lymphocyte Count 1.55 X10^3/uL (0.83-4.51); Basophil# 0.04 X10^3/uL; Basophil% 0.9 % (0-1); Eosinophil# 0.11 X10^3/uL; Eosinophils% 2.5 % (0-5); Hemoglobin 14.4 g/dL (12.0-15.0); Lymphocyte # 1.55 X10^3/ul (4.0); Lymphocyte % 35.7 % (19-41); Mean Corp Hgb Conc 33.5 g/dL (32-36); Mean Corpuscular Hgb 29.1 pg (27.0-32.0); Mean Corpuscular Volume 86.9 fL (81-99); Mean Platelet Vol. 12.8 fl (6.2-12.0); Monocyte# 0.65 X10^3/uL; NRBC Flagged by Analyzer 0 % (0-5); Neutrophil # 1.98 X10^3/uL (2.7-7.7); Neutrophil % 45.7 % (47-70); POSITIVE MORPHOLOGY YES; Platelet Count 190 K/mm3 (150-450); RBC Distribution Width CV 13.9 % (11.6-14.6); Red Blood Count 4.95 M/mm3 (4.2-5.4); White Blood Count 4.3 K/mm3 (4.4-11.0)
[2019-03-18 17:44] LABS: Mucous, Urine 0 SEEN /hpf (<or=2+)
[2019-03-18 17:54] LABS: Color, Urine Yellow (Yellow); Glucose, Dipstick Normal (Normal); Ketone-Dipstick 5 mg/dl (Negative); Leukocyte Esterase-Dipstick 100 /ul (Negative); Nitrite-Dipstick Positive (Negative); Occult Blood-Urine 25 /ul (Negative); Protein-Dipstick 30 mg/dl (Negative); Urine Clarity Cloudy (Clear); Urine Urobilinogen 8 mg/dl (Normal); Urine pH 6.5 (5.0 - 8.0)
[2019-03-18 17:56] LABS: ALB/GLOB Ratio 0.7 RATIO (0.9-2.4); AST(SGOT) 1083 U/L (15-37); Alanine Aminotransfer ALT/SGPT 2540 U/L (13-56); Albumin, Serum 2.9 g/dL (3.2-5.0); Alkaline Phosphatase 384 U/L (45-117); Anion Gap 5 (5-15); BUN 10 mg/dL (7-18); BUN/Creat Ratio 14.6 RATIO (10-20); Calcium,Total 8.3 mg/dL (8.5-10.1); Chloride 99 mmol/L (98-107); Creatinine, Serum 0.69 mg/dL (0.55-1.02); Differential Indicated SCAN CRITERIA MET; EST Glomerular Filtration Rate 104 mL/min (>60); Est Glom Filt Rate - Afr Amer 126 mL/min (>60); Estimated Creatinine Clearance 87.51 ml/min; Globulin 3.9 g/dL (2.2-4.2); Glucose 80 mg/dL (74-106); Lipase 166 U/L (73-393); Potassium 4.7 mmol/L (3.5-5.1); Protein, Total 6.8 g/dL (6.4-8.2); Sodium Level 133 mmol/L (136-145)
[2019-03-18 18:00] VITALS: RESP 16
[2019-03-18 18:04] LABS: Urine Bilirubin Dipstick 6 mg/dL (Negative)
[2019-03-18 18:33] LABS: Alcohol, Blood (Medical)-Serum < 3.0 mg/dL
[2019-03-18] MEDS: proMETHazine 25 MG/ML Syringe 6.25 MG IV (18:33)
[2019-03-18 18:47] LABS: Atypical Lymphocyte 1+ %; Reactive Lymphocyte 1+
[2019-03-18 18:48] LABS: Platelet Estimate ADEQUATE (ADEQ); Red Cell Morphology NORM C+C NORMAL (NORM C&C)
[2019-03-18 18:56] LABS: Bacteria 4+ /hpf (None Seen); Calcium Oxalate Crystals Ur 4+ /hpf (<or=2+); Red Blood Cells-Urine 0-5 SEEN /hpf (0-5); Squamous Epithelial Cells - UA 10-25 SEEN /hpf (5-10); White Blood Cells 0-5 SEEN /hpf (0-5)
[2019-03-18 19:11] VITALS: RESP 16
[2019-03-18 20:34] VITALS: RESP 18
--- NOTE | 2019-03-18 20:49 | PCM.HP.STD ---
Problem List (1) Heroin abuse Status: Acute (2) Amphetamine abuse Status: Acute (3) Alcohol abuse Status: Acute (4) Tobacco dependence syndrome Status: Chronic (5) Post traumatic stress disorder (PTSD) Status: Chronic (6) Moderate major depression Status: Chronic History of Present Illness Date of Admission: 03/18/19 Chief Complaint: Polysubstance abuse requesting withdrawal protocol The patient is a 33 year old female patient with a known past medical history of depression, substance abuse presents the emergency room requesting detoxification. Patient admits to alcohol abuse for several years with an average of 12 beers a day, methamphetamine and heroin as well. The patient states she last used substances 24 hours ago and is now complaining of feeling very ill including abdominal pain and mid lower back pain. The patient admits to having a poor appetite, she is a long-term smoker and is requesting a nicotine patch. Initial white blood cell count is 4.3, hemoglobin 14.4, hematocrit 43, platelets 190, sodium 133, potassium 4.7, chloride 99, bicarb 29, BUN 10, creatinine's 0.69, glucose 80, total bilirubin 6.2, alkaline phosphatase 384, ALT 2541 AST 1083, UA positive for nitrites and 4+ bacteria, tox screen positive for THC, amphetamine, negative for opiates, negative for alcohol. The patient will be admitted to general medical floor placed on [facility] protocol and treated for urinary tract infection Past Medical History Past Medical History (Chronic Problems): Chronic Problems Kidney stones (Chronic) Seizure disorder (Chronic) Tobacco dependence syndrome (Chronic) Post traumatic stress disorder (PTSD) (Chronic) Moderate major depression (Chronic) Allergies ciprofloxacin [From Cipro] Allergy (Verified 03/18/19 15:41) Hives ciprofloxacin HCl [From Cipro] Allergy (Verified 03/18/19 15:41) Hives levetiracetam [From Keppra] Allergy (Verified 03/18/19 15:41) SEIZURES morphine Allergy (Verified 03/18/19 15:41) Shortness of breath ondansetron HCl [From Zofran] Allergy (Verified 03/18/19 15:41) Hives Sulfa (Sulfonamide Antibiotics) Allergy (Verified 03/18/19 15:41) Hives acetaminophen [From [place]] Adverse Reaction (Verified 03/18/19 15:41) STOMACH CRAMPS hydrocodone bitartrate [From [place]] Adverse Reaction (Verified 03/18/19 15:41) STOMACH CRAMPS ketorolac tromethamine [From Toradol] Adverse Reaction (Verified 03/18/19 15:41) Abd cramps/diarrhea metoclopramide HCl [From Reglan] Adverse Reaction (Verified 03/18/19 15:41) TACHY ondansetron [From Zofran] Adverse Reaction (Verified 03/18/19 17:45) Other Home Medications: Ambulatory Orders Medication Instructions Recorded NK 09/11/18 Surgical History: - - Hysterectomy, tonsillectomy and tubal ligation. 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 Denies: Chills, Fever, Weight Change HEENT: Denies: Head Aches, Sinus Congestion, Sinus Drainage Cardiovascular: Denies: Chest Pain, Palpitations Respiratory: Denies: Cough, Shortness of breath at rest, Sputum production Gastrointestinal: Reports: Abdominal Pain. Denies: Nausea, Vomiting Genitourinary: Denies: Dysuria Musculoskeletal: Reports: Back Pain. Denies: Joint Pain, Joint Tenderness Skin: Denies: Rash, Wounds Neurological: Denies: Numbness, Tingling, Focal weakness Psychiatric: Reports: Anxiety. Denies: Depression, Homicidal Ideations, Suicidal Ideations Hematologic/ Lymphatic: Denies: Easy Bruising, Easy Bleeding VTE Information - Inpt Only VTE Present on Admission: No VTE Mechan Device Prophylaxis: None VTE Pharm Prophylaxis ordered?: Yes Patient Problems: Active and Suspected Problems Heroin abuse (Acute) Amphetamine abuse (Acute) Alcohol abuse (Acute) - Physical Exam Vitals/I&O's: Vital Signs Temp Pulse Resp BP Pulse Ox 97.2 F L 93 18 92/73 97 03/18/19 15:37 03/18/19 15:37 03/18/19 20:34 03/18/19 15:37 03/18/19 15:37 Oxygen Delivery Method Room Air Weight: 116 lb 13.52 oz Body Mass Index (BMI) 22.1 General: Alert, Oriented x3, Cooperative HEENT: Atraumatic, Normocephalic Neck: Supple Lungs: Clear to auscultation, Normal air movement Cardiovascular: Regular rate, No murmurs Abdomen: Bowel Sounds Present, Soft, Non Tender Extremities: No edema, Capillary Refill Less than 3 Seconds Skin: No rashes Musculoskeletal: No Tenderness to Palpation of Joints or Extremities Neurological: Neuro grossly intact Psych/Mental Status: Anxious Laboratory Results 03/18/19 15:43: Serum , Qual NEGATIVE 03/18/19 15:55: Urine Opiates Screen NEGATIVE, Urine Methadone Screen NEGATIVE, Ur Barbiturates Screen NEGATIVE, Ur Phencyclidine Scrn NEGATIVE, Ur Amphetamines Screen POSITIVE H, U Methamphetamin-MDMA NEGATIVE, U Benzodiazepines Scrn NEGATIVE, Urine Cocaine Screen NEGATIVE, U Cannabinoids Screen POSITIVE H, Ur Drug Screen Comment 03/18/19 15:55: Urine Color Yellow, Urine Clarity Cloudy, Urine pH 6.5, Ur Specific [place] 1.020, Urine Protein 30 H, Urine Glucose (UA) Normal, Urine Ketones 5 H, Urine Occult Blood 25 H, Urine Nitrite Positive H, Urine Bilirubin 6 H, Urine Urobilinogen 8 H, Ur Leukocyte Esterase 100 H, Urine RBC 0-5 SEEN, Urine WBC 0-5 SEEN, Ur Squamous Epith Cells 10-25 SEEN, Calcium Oxalate Crystal 4+, Urine Bacteria 4+, Urine Mucus 0 SEEN 03/18/19 17:15: WBC 4.3 L, RBC 4.95, Hgb 14.4, Hct 43.0, MCV 86.9, MCH 29.1, MCHC 33.5, RDW Std Deviation 44.0 H, RDW Coeff of [place] 13.9, Plt Count 190, MPV 12.8 H, Immature Gran % (Auto) 0.200, Neut % (Auto) 45.7 L, Lymph % (Auto) 35.7, Adams % (Auto) 15.0 H, Eos % (Auto) 2.5, Baso % (Auto) 0.9, Absolute Neuts (auto) 2.0, Absolute Lymphs (auto) 1.55, Nucleated RBC % 0, Atypical Lymphocytes 1+, Reactive Lymphocytes 1+, Platelet Estimate ADEQUATE, RBC Morphology NORM C+C 03/18/19 17:15: Sodium 133 L, Potassium 4.7, Chloride 99, Carbon Dioxide 29.0, Anion Gap 5, BUN 10, Creatinine 0.69, Estim Creat Clear Calc 87.51, Est GFR (MDRD) Af Amer 126, Est GFR (MDRD) Non-Af 104, BUN/Creatinine Ratio 14.6, Glucose 80, Calcium 8.3 L, Total Bilirubin 6.20 H, AST 1083 H, ALT 2540 H, Alkaline Phosphatase 384 H, Total Protein 6.8, Albumin 2.9 L, Globulin 3.9, Albumin/Globulin Ratio 0.7 L, Lipase 166 03/18/19 17:15: Ethyl Alcohol < 3.0 Assessment/Plan All Active Problems Heroin abuse (Acute) Amphetamine abuse (Acute) Alcohol abuse (Acute) Acute pyelonephritis (Acute) Chronic Problems Kidney stones (Chronic) Seizure disorder (Chronic) Tobacco dependence syndrome (Chronic) Post traumatic stress disorder (PTSD) (Chronic) Moderate major depression (Chronic) plan 1. Alcohol/amphetamine/heroin?abuse, admit to general medical floor, place on CIWA protocol, repeat CMP in a.m., IV normal saline at a rate of 100 cc/h, consult case management in the a.m. for assistance with drug rehabilitation potential and plan 2. UTI?Rocephin 1 g IV every 24 hours 3. Tobacco abuse?nicotine patch 4. DVT prophylaxis?low molecular weight heparin Code Visit Inpatient E&M: 71964 Init Hosp L3
[2019-03-18 21:09] VITALS: BP 103/70; PULSE 91; RESP 16; O2SAT 97
[2019-03-18 21:41] VITALS: BMI 21.3
[2019-03-18 21:43] VITALS: BP 104/60; PULSE 88; RESP 16; TEMP 37; O2SAT 93
[2019-03-18] MEDS: diazePAM 5 MG Tablet PO (21:56)
[2019-03-18 21:59] VITALS: BMI 21.4
[2019-03-18] MEDS: 0.9% Normal Saline 1,000 ML 100 ML IV (22:05)
[2019-03-18] MEDS: LORazepam 2 MG/ML Syringe IV (22:05)
[2019-03-18] MEDS: 0.9% Saline Lock 10 ML Syringe IV (22:06)
[2019-03-18] MEDS: Ceftriaxone 1 GM/50 ML BAG IV (22:23)
[2019-03-19 03:01] VITALS: BP 92/62; PULSE 92; RESP 16; TEMP 37; O2SAT 96
[2019-03-19] MEDS: diazePAM 5 MG Tablet PO ×4 (03:02→23:06)
[2019-03-19] MEDS: 0.9% Saline Lock 10 ML Syringe IV ×4 (03:38→09:32)
[2019-03-19] MEDS: proMETHazine 25 MG/ML Syringe 12.5 MG IV (03:38)
[2019-03-19] MEDS: LORazepam 2 MG/ML Syringe IV ×2 (03:47→05:58)
[2019-03-19 03:53] VITALS: BP 107/77; PULSE 96; RESP 20
[2019-03-19] MEDS: Dicyclomine 10 MG Capsule 20 MG PO ×2 (05:58→15:44)
[2019-03-19 06:52] LABS: Absolute Lymphocyte Count 1.88 X10^3/uL (0.83-4.51); Absolute Neutrophil Count 1.9 X10^3/uL (2.0-7.7); Basophil# 0.04 X10^3/uL; Basophil% 0.9 % (0-1); Eosinophil# 0.15 X10^3/uL; Eosinophils% 3.4 % (0-5); Hematocrit 40.2 % (37-47); Hemoglobin 13.7 g/dL (12.0-15.0); Lymphocyte # 1.88 X10^3/ul (4.0); Lymphocyte % 42.2 % (19-41); Mean Corp Hgb Conc 34.1 g/dL (32-36); Mean Corpuscular Hgb 29.9 pg (27.0-32.0); Mean Corpuscular Volume 87.8 fL (81-99); Mean Platelet Vol. 12.1 fl (6.2-12.0); Monocyte% 11.2 % (0-10); NRBC Flagged by Analyzer 0 % (0-5); Neutrophil # 1.87 X10^3/uL (2.7-7.7); Neutrophil % 42.1 % (47-70); POSITIVE MORPHOLOGY YES; Platelet Count 163 K/mm3 (150-450); RBC Distribution Width CV 13.6 % (11.6-14.6); RBC Distribution Width SD 43.8 fl (35.1-43.9); Red Blood Count 4.58 M/mm3 (4.2-5.4); White Blood Count 4.5 K/mm3 (4.4-11.0)
--- NOTE | 2019-03-19 06:56 | PN_ITS ---
Patient Problems: Active and Suspected Problems Heroin abuse (Acute) Amphetamine abuse (Acute) Alcohol abuse (Acute) Alcohol withdrawal (Acute) Substance abuse (Acute) Subjective: The patient is a 33-year-old female with a past medical history of tobacco dependence, PTSD, depression, seizure disorder, nephrolithiasis and polysubs tance (ETOH, heroin, cannabis and methamphetamine) abuse who presented to the ED at [facility] on 03/18/19 c/o abdominal pain and low back pain. Stated her last use was 24 hours prior to presenting to the emergency room. She requested inpatient admission for medical stabilization for acute alcohol withdrawal and acute opiate withdrawal. te signs of presentation to the emergency department were temperature 97.2, pulse rate 93, blood pressure 92, respiratory rate 15 and she was 97% saturated on room air. White blood cell count is mildly decreased at 4.3 but the remainder of the CBC was unremarkable. Sodium was mildly decreased at 133 but the remainder of the BMP was unremarkable. Total bilirubin was increased at 6.2 AST was 1083 and ALT was 2540. Alkaline phosphatase was 384. A clean-catch urine was obtained but was contaminated and had 10-25 WBCs per high-power field. Tox screen was positive for amphetamines and cannabinoids. Ethyl alcohol was less than 3.0. She was admitted to a medical surgical floor and the acute opiate withdrawal protocol was initiated. She was also started on the protocol for acute alcohol withdrawal with a Diazepam taper. All events the past 24 hours been reviewed. She remains afebrile. Vital signs are stable. Pulse ox ranges from 93 to 97%. She is complaining of back pain and muscle pain. She has had some nausea but no emesis today. She is having some muscle spasms and abdominal cramping. She was not placed on a Suboxone taper at admission for acute opiate withdrawal. She was only placed on C was scale and a diazepam taper for acute alcohol withdrawal. She tells me that she has a foul-smelling vaginal discharge. He denies having sex but she is often high on drugs and when she wakes up from a high she is confused.......she has no idea if she is having sex or not. she denies any hx of Hepatitis. She has been using intravenous narcotics since the age of 14. She tells me that her family has problems with drug addiction and alcoholism. Her father of liver cancer secondary to hepatitis C. She has children and they are currently being cared for by her mother. She herself is homeless at the present time. She expresses interest in doing an inpatient program and knows that if she is discharged without having arrangements for inpatient admission that she will use. She denies being in rehab before but, she asked me about using phenobarbital for acute alcohol withdrawal. I suspect this is because she has been in alcohol rehab before. Tells me that her urine has been very dark recently. She has pain in the RUQ with palpation of the abdomen and I am suspecting she has acute hepatitis. - Physical Exam Vitals/I&O's: Vital Signs Temp Pulse Resp BP Pulse Ox 98.6 F 96 20 H 107/77 96 03/19/19 03:01 03/19/19 03:53 03/19/19 03:53 03/19/19 03:53 03/19/19 03:01 Oxygen Delivery Method Room Air Weight: 113 lb 1.554 oz Body Mass Index (BMI) 21.3 Intake and Output for Last 24 Hours 03/17/19 03/18/19 03/19/19 23:59 23:59 23:59 Intake Total 280 / 280 600 / 600 Balance 280 / 280 600 / 600 General: Alert, Oriented x3, Well developed, - - emotionally labile HEENT: Atraumatic, PERRLA, EOMI, Normocephalic, - - Positive scleral icterus Oral: Moist Mucosa Neck: Supple, No Nodes, Trachea Midline Lungs: Clear to auscultation, Normal air movement Abdomen: Bowel Sounds Present, Soft, Non-Distended, Tender - tender to palpation in the RUQ jourdan with palpation of the liver margin Extremities: No clubbing, No cyanosis, No edema Skin: No rashes, - - Jaundice present. No telangiectasias over the chest or face. Neurological: Cranial nerves II-XII grossly intact, Neuro grossly intact Psych/Mental Status: Impulsive, - - emotionally labile Laboratory Results 03/18/19 15:43: Serum , Qual NEGATIVE 03/18/19 15:55: Urine Opiates Screen NEGATIVE, Urine Methadone Screen NEGATIVE, Ur Barbiturates Screen NEGATIVE, Ur Phencyclidine Scrn NEGATIVE, Ur Amphetamines Screen POSITIVE H, U Methamphetamin-MDMA NEGATIVE, U Benzodiazepines Scrn NEGATIVE, Urine Cocaine Screen NEGATIVE, U Cannabinoids Screen POSITIVE H, Ur Drug Screen Comment 03/18/19 15:55: Urine Color Yellow, Urine Clarity Cloudy, Urine pH 6.5, Ur Specific Webster 1.020, Urine Protein 30 H, Urine Glucose (UA) Normal, Urine Ketones 5 H, Urine Occult Blood 25 H, Urine Nitrite Positive H, Urine Bilirubin 6 H, Urine Urobilinogen 8 H, Ur Leukocyte Esterase 100 H, Urine RBC 0-5 SEEN, Urine WBC 0-5 SEEN, Ur Squamous Epith Cells 10-25 SEEN, Calcium Oxalate Crystal 4+, Urine Bacteria 4+, Urine Mucus 0 SEEN 03/18/19 17:15: WBC 4.3 L, RBC 4.95, Hgb 14.4, Hct 43.0, MCV 86.9, MCH 29.1, MCHC 33.5, RDW Std Deviation 44.0 H, RDW Coeff of Chelo 13.9, Plt Count 190, MPV 12.8 H, Immature Gran % (Auto) 0.200, Neut % (Auto) 45.7 L, Lymph % (Auto) 35.7, Gregory % (Auto) 15.0 H, Eos % (Auto) 2.5, Baso % (Auto) 0.9, Absolute Neuts (auto) 2.0, Absolute Lymphs (auto) 1.55, Nucleated RBC % 0, Atypical Lymphocytes 1+, Reactive Lymphocytes 1+, Platelet Estimate ADEQUATE, RBC Morphology NORM C+C 03/18/19 17:15: Sodium 133 L, Potassium 4.7, Chloride 99, Carbon Dioxide 29.0, Anion Gap 5, BUN 10, Creatinine 0.69, Estim Creat Clear Calc 87.51, Est GFR (MDRD) Af Amer 126, Est GFR (MDRD) Non-Af 104, BUN/Creatinine Ratio 14.6, Glucose 80, Calcium 8.3 L, Total Bilirubin 6.20 H, AST 1083 H, ALT 2540 H, Alkaline Phosphatase 384 H, Total Protein 6.8, Albumin 2.9 L, Globulin 3.9, Albumin/Globulin Ratio 0.7 L, Lipase 166 03/18/19 17:15: Ethyl Alcohol < 3.0 Current Medications Clonidine (Catapres) 0.1 mg PO Q2H PRN PRN PRN Reason: Hot/Cold Sweats or Anxiety Diazepam (Valium) 10 mg PO Q6H MELINA; Taper Stop: 03/23/19 21:59 Last Admin: 03/19/19 03:02 Dose: 10 mg Documented by: Dicyclomine HCl (Bentyl) 20 mg PO Q6H PRN PRN PRN Reason: Abdomnial Discomfort Last Admin: 03/19/19 05:58 Dose: 20 mg Documented by: Enoxaparin Sodium (Lovenox) 40 mg SC DAILY@1000 MELINA Folic Acid (Folic Acid) 1 mg PO DAILY@0800 REPLACED BY [facility] Stop: 03/21/19 08:01 Ceftriaxone Sodium (Rocephin) 1 gm in 50 mls @ 100 mls/hr IV Q24@2200 REPLACED BY [facility] Last Infusion: 03/18/19 22:53 Dose: Infused Documented by: Sodium Chloride () 1,000 mls @ 100 mls/hr IV .Q10H REPLACED BY [facility] Last Infusion: 03/18/19 22:53 Dose: 100 mls/hr Documented by: Lorazepam (Ativan) 2 mg PO Q2H PRN PRN; Protocol PRN Reason: CIWA score > 8 but <15 Lorazepam (Ativan) 2 mg PO UD PRN; Protocol PRN Reason: CIWA score >/=15. Lorazepam (Ativan) 2 mg IV Q2H PRN PRN; Protocol PRN Reason: CIWA score > 8 but <15 Last Admin: 03/19/19 05:58 Dose: 2 mg Documented by: Lorazepam (Ativan) 2 mg IV UD PRN; Protocol PRN Reason: CIWA score >/=15. Promethazine HCl (Phenergan) 12.5 mg IV Q6H PRN PRN PRN Reason: NAUSEA/VOMITING Last Admin: 03/19/19 03:38 Dose: 12.5 mg Documented by: Sodium Chloride () 10 - 40 ml IV UD PRN PRN Reason: SALINE FLUSH Last Admin: 03/19/19 05:57 Dose: 10 ml Documented by: Thiamine HCl (Vitamin B1) 100 mg PO BIDCM REPLACED BY [facility] Stop: 03/21/19 17:01 Medical Necessity - Tobacco Use Smoking Status: Current every day smoker Assessment/Plan All Active Problems Heroin abuse (Acute) Amphetamine abuse (Acute) Alcohol abuse (Acute) Alcohol withdrawal (Acute) Substance abuse (Acute) Acute pyelonephritis (Acute) Impressions 1. Acute opiate withdrawal 2. Acute EtOH withdrawal 3. Abuse including heroin, methamphetamine, cannabis and alcohol 4. Markedly abnormal liver function tests-I am suspicious she may have acute hepatitis. HIV is negative and hepatitis panel is pending. 5. UTI ruled out. It was a contaminated clean catch. I am more suspicious she has vaginitis. She has not had a PAP in years and she is c/o stinky vaginal DC. GC/CT [facility] by PCR. if negative may need to do a pelvic exam at the bedside. Rocephin discontinued. 6. Hyponatremia-resolved 7. Tobacco dependence Hepatitis panel, HIV, PT Continue the protocol for acute opiate/ETOH withdrawal US of the liver in the AM Await the results of the hepatitis panel Code Visit Inpatient E&M: 49431 Subs Hosp L2
[2019-03-19 07:04] LABS: Differential Indicated SCAN CRITERIA MET
[2019-03-19 07:41] LABS: ALB/GLOB Ratio 0.8 RATIO (0.9-2.4); AST(SGOT) 644 U/L (15-37); Alanine Aminotransfer ALT/SGPT 1858 U/L (13-56); Albumin, Serum 2.6 g/dL (3.2-5.0); Alkaline Phosphatase 341 U/L (45-117); Anion Gap 6 (5-15); BUN 7 mg/dL (7-18); BUN/Creat Ratio 13.4 RATIO (10-20); Chloride 105 mmol/L (98-107); Creatinine, Serum 0.52 mg/dL (0.55-1.02); EST Glomerular Filtration Rate 143 mL/min (>60); Est Glom Filt Rate - Afr Amer 173 mL/min (>60); Estimated Creatinine Clearance 116.12 ml/min; Globulin 3.4 g/dL (2.2-4.2); Glucose 81 mg/dL (74-106); Potassium 3.6 mmol/L (3.5-5.1); Sodium Level 135 mmol/L (136-145)
[2019-03-19 07:56] LABS: Prothrombin Time (Protime)PT. 13.1 SECONDS (11.7-14.9)
[2019-03-19] MEDS: Thiamine Hydrochloride 100 MG Tablet PO ×2 (09:13→15:45)
[2019-03-19] MEDS: Folic Acid 1 MG Tablet PO (09:13)
[2019-03-19 09:16] VITALS: BP 97/66; PULSE 96; RESP 16; TEMP 36.8; O2SAT 97
[2019-03-19] MEDS: Enoxaparin 40 MG/0.4 ML Syringe SC (09:32)
[2019-03-19 09:33] LABS: HIV - WCH Non-Reactive (Nonreactive)
--- NOTE | 2019-03-19 09:51 | CASEMGMT ---
Social Work Note Pt is at [facility] for substance abuse withdrawal. SW met with pt and introduced self and role at [facility]. Pt is alert and orientated x4 and is eating breakfast. Pt states that she would like to go to inpatient treatment at discharge. SW provided pt with list of treatment options and informed pt that she will need to review list and informed pt that a lot of the time the agencies require the pt themselves to call for initial assessment. SW informed pt that she should start reviewing list and making calls as soon as she is able to. Pt states well I will need to feel better before I can make calls. SW informed pt that typically pt only stay at [facility] for around three days for medical stabilization. Pt states understanding. SW informed pt that if she calls a place and they need to speak with this worker or would like information faxed then pt will need to let this worker know. SW informed pt that [facility] will not be able to provide transportation so when she calls an agency she will need to ask the agency if they are able to provide transportation. Pt states understanding, states she would like to eat her breakfast. SW to continue to follow and will be available to assist with discharge planning. Liudmila Bosch FRONT OFFICE AGENT, LINT CLEANER
[2019-03-19 14:14] VITALS: BP 103/65; PULSE 50; RESP 18; TEMP 37; O2SAT 94
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
[2019-03-19] MEDS: cloNIDine HCl 0.1 MG Tablet PO (15:44)
--- NOTE | 2019-03-19 16:23 | CASEMGMT ---
Social Work Note RN updated this worker that pt is requesting to speak to this worker. SW met with pt. Pt states you're not the SW I talked to last night. SW informed pt that this worker was in earlier today and the SW she spoke with last night is the ED SW but that this SW is the SW on the floor. Pt states I am illiterate and I can't read this list you gave me. SW informed pt that this worker was not made aware that pt was illiterate but that this worker can review the list but informed pt that a lot of the agencies require to speak with pt. Pt states i don't know how to answers the questions. SW explained that this worker will not know how to answers the questions either as the questions will likely be about the pt. Pt states I am just going to go leave and get high because you are not helping me and that will be on you. SW informed pt that this worker is trying to help but that this worker will need to know which agency the pt would like a referral sent to and again stated that likely the agency will want to speak with pt herself. SW reviewed list with pt. Pt states she needs an inpatient treatment. Pt agreeable to referrals being sent to [facility], [facility], [facility] and [facility]. SW informed pt that this worker is leaving soon for the day but will at least get pt's information faxed. Pt then states so I am going no where. SW again explained that pt will be at [facility] for a few days and that this worker will be back tomorrow to continue to assist with discharge but informed pt that this worker can't guarantee that this worker will be able to get pt placed inpatient somewhere. SW explained that the agencies look at pt's insurance and if they have beds available. SW faxed facesheet to [facility] and [facility]. SW placed a call to [facility] but they don't accept Medicaid but recommended [facility]. EDWIN placed a call to [facility] and spoke with [place] who states they have no female residential program. EDIWN placed a call to [facility] and spoke with Jagruti. Jagruti states she will need referral faxed to [phone] and will have review consultant referral. SW faxed referral to [facility]. SW is leaving for the day and will follow up on referrals tomorrow for pt. SW to continue to follow. Liudmila Bosch WINDOWS SOFTWARE ENGINEER, ALGOLOGIST
[2019-03-19] MEDS: Buprenorphine HCl 2 MG TAB.SUBL SL (18:45)
[2019-03-19] MEDS: Pramipexole Di-HCl 0.25 MG Tablet PO (18:45)
[2019-03-19] MEDS: hydrOXYzine PAM 25 MG Capsule 50 MG PO (18:45)
[2019-03-19] MEDS: Methocarbamol 750 MG Tablet PO (18:45)
[2019-03-19] MEDS: Ibuprofen 600 MG Tablet PO (18:45)
[2019-03-19] MEDS: proMETHazine 25 MG/ML Syringe IM (18:49)
[2019-03-19 20:14] VITALS: BP 104/59; PULSE 104; RESP 14; TEMP 36.3; O2SAT 93
[2019-03-20] VITALS (7 sets, daily range): BP systolic 86–94; BP diastolic 52–59; PULSE 66–90; RESP 14–18; TEMP 36.1–37.6; O2SAT 97–100
--- NOTE | 2019-03-20 05:55 | US_ITS ---
STUDY: ABDOMINAL ULTRASOUND - RIGHT UPPER QUADRANT REASON FOR VISIT: Female, 33 years old. Elevated liver function test. TECHNIQUE: Ultrasound evaluation of the right upper quadrant was performed with real-time and static alexander-scale imaging. TECHNICAL QUALITY: Adequate. COMPARISON: None. FINDINGS: Liver: The liver measures 10.8 cm. There is normal echogenicity of the liver. The bile ducts are within normal limits. There is hepatic color flow. The direction of portal flow is hepatopetal. There is no demonstrated mass lesion. Gallbladder: Normal distended gallbladder. The gallbladder wall is thickened and measures 9 mm. There is a negative sonographic Nelson's sign. There is no pericholecystic fluid. There are no gallstones. Tumefactive sludge is seen within the gallbladder lumen. Common Bile Duct (C.B.D.): The common bile duct measures 6.3 mm. Pancreas: Normal size of the head, body of the pancreas. The tail portion is obscured due to overlying bowel gas. There is normal echogenicity of the pancreas. There is no demonstrated pancreatic mass or cyst. Right Kidney: Normal size of the right kidney. The right kidney measures 10.8 cm x 4.2 cm x 4.7 cm. Normal renal cortex. The right cortex measures 1.6 cm. There is no demonstrated renal mass or cyst. There is no right hydronephrosis. US/Liver IMPRESSION: Thickening of the gallbladder wall. Correlation with a nuclear medicine hepatobiliary scan is recommended. Tumefactive sludge is seen within the gallbladder lumen. Electronically Signed: Esteban Alvarenga, at 10:00 EST , Service support ,
[2019-03-20 06:41] LABS: Chlamydia Trachomatis by PCR Negative (Negative); Neisserai gonorrhoeae by PCR Negative (Negative); Probe Check PASS; Sample Adequacy Control PASS; Specimen Processing Control PASS
--- NOTE | 2019-03-20 07:54 | PCM.PROGNOTE ---
Patient Problems: Active and Suspected Problems Heroin abuse (Acute) Amphetamine abuse (Acute) Alcohol abuse (Acute) Alcohol withdrawal (Acute) Substance abuse (Acute) Subjective: All events the past 24 hours been reviewed. She is afebrile. Blood pressures are on the low side today and have ranged from 86/55-90 3/59 overnight. Chlamydia trachomatis and Neisseria gonorrhea PCR's were negative. Hepatitis panel is still pending. Ultrasound of the liver ordered for today. she is very needy and asking the same questions over and over. She locked herself in the BR today and she has been yelling and screaming. Has been disrespectful of the staff. She is using a bedside commode because she can not make it to the BR to urinate.....but she made it to the BR this morning by herself and locked the door. - Physical Exam Vitals/I&O's: Vital Signs Temp Pulse Resp BP Pulse Ox 97.6 F L 66 14 93/59 L 99 03/20/19 05:00 03/20/19 05:00 03/20/19 05:00 03/20/19 05:00 03/20/19 05:00 Oxygen Delivery Method Room Air Weight: 113 lb 1.554 oz Body Mass Index (BMI) 21.3 Intake and Output for Last 24 Hours 03/18/19 03/19/19 03/20/19 23:59 23:59 23:59 Intake Total 280 / 280 2670 / 2670 Balance 280 / 280 2670 / 2670 General: Alert, No apparent distress, - - repeating the same questions over and over after they have already been answered. Will not stop talking when I am trying to address her and is making excuses about locking the BR door.....I told her she needs to keep the door unlocked because if she falls or someone needs to help her they will be unable to get in HEENT: Atraumatic, PERRLA Lungs: Clear to auscultation Cardiovascular: Regular rate, Regular Rhythm Abdomen: Bowel Sounds Present, Soft, Non Tender, Non-Distended Extremities: No edema, - - Very mild tremors of her hands Skin: No rashes Neurological: Cranial nerves II-XII grossly intact, Neuro grossly intact Psych/Mental Status: Impulsive, - - needy and manipulative Laboratory Results 03/19/19 07:29: PT 13.1, INR 1.0 03/19/19 07:29: HIV 1&2 Antibody Non-Reactive 03/20/19 03:00: Chlam trachomat DNA PCR Negative, N.gonorrhoeae DNA (PCR) Negative Current Medications Buprenorphine HCl (Buprenorphine Hcl) 4 mg SL Q8H MELINA; Taper Stop: 03/22/19 21:59 Last Admin: 03/20/19 03:19 Dose: Not Given Documented by: Clonidine (Catapres) 0.1 mg PO Q2H PRN PRN PRN Reason: Hot/Cold Sweats or Anxiety Last Admin: 03/19/19 15:44 Dose: 0.1 mg Documented by: Diazepam (Valium) 10 mg PO Q6H MELINA; Taper Stop: 03/23/19 21:59 Last Admin: 03/20/19 03:19 Dose: Not Given Documented by: Dicyclomine HCl (Bentyl) 20 mg PO Q6H PRN PRN PRN Reason: Abdomnial Discomfort Last Admin: 03/19/19 15:44 Dose: 20 mg Documented by: Enoxaparin Sodium (Lovenox) 40 mg SC DAILY@1000 MELINA Last Admin: 03/19/19 09:32 Dose: 40 mg Documented by: Folic Acid (Folic Acid) 1 mg PO DAILY@0800 [facility] Stop: 03/21/19 08:01 Last Admin: 03/19/19 09:13 Dose: 1 mg Documented by: Hydroxyzine Pamoate (Vistaril Pamoate Capsule) 50 mg PO Q6H PRN PRN PRN Reason: Mild Anxiety Last Admin: 03/19/19 18:45 Dose: 50 mg Documented by: Ibuprofen (Motrin) 600 mg PO Q8H PRN PRN Reason: pain 1-5 Last Admin: 03/19/19 18:45 Dose: 600 mg Documented by: Lorazepam (Ativan) 2 mg PO Q2H PRN PRN; Protocol PRN Reason: CIWA score > 8 but <15 Lorazepam (Ativan) 2 mg PO UD PRN; Protocol PRN Reason: CIWA score >/=15. Lorazepam (Ativan) 2 mg IV Q2H PRN PRN; Protocol PRN Reason: CIWA score > 8 but <15 Last Admin: 03/19/19 05:58 Dose: 2 mg Documented by: Lorazepam (Ativan) 2 mg IV UD PRN; Protocol PRN Reason: CIWA score >/=15. Methocarbamol (Methocarbamol) 750 mg PO Q6H PRN PRN PRN Reason: Muscle Aches Last Admin: 03/19/19 18:45 Dose: 750 mg Documented by: Nutritional Formula (Lactose Free) (Ensure Enlive) 120 ml PO 4X/DAY [facility] Last Admin: 03/19/19 23:06 Dose: Not Given Documented by: Pramipexole Dihydrochloride (Mirapex) 0.25 mg PO Q12H PRN PRN PRN Reason: Restless Legs Last Admin: 03/19/19 18:45 Dose: 0.25 mg Documented by: Promethazine HCl (Phenergan) 25 mg IM Q6H PRN PRN PRN Reason: NAUSEA/VOMITING Last Admin: 03/19/19 18:49 Dose: 25 mg Documented by: Sodium Chloride () 10 - 40 ml IV UD PRN PRN Reason: SALINE FLUSH Last Admin: 03/19/19 09:32 Dose: 10 ml Documented by: Thiamine HCl (Vitamin B1) 100 mg PO BIDCM [facility] Stop: 03/21/19 17:01 Last Admin: 03/19/19 15:45 Dose: 100 mg Documented by: Medical Necessity - Tobacco Use Smoking Status: Current every day smoker Assessment/Plan All Active Problems Heroin abuse (Acute) Amphetamine abuse (Acute) Alcohol abuse (Acute) Alcohol withdrawal (Acute) Substance abuse (Acute) Acute pyelonephritis (Acute) Impressions 1. Acute opiate withdrawal -continue Suboxone taper 2. Acute EtOH withdrawal and continue diazepam taper 3. Polysubstance abuse including heroin, methamphetamine, cannabis and alcohol - wants to go to an inpt program 4. Markedly abnormal liver function tests-I am suspicious she may have acute hepatitis. HIV is negative and hepatitis panel is pending. 5. UTI ruled out. It was a contaminated clean catch. I am more suspicious she has vaginitis. CT/GC [facility] PCR negative for Chlamydia trachomatis and Neisseria gonorrhea. 6. Hyponatremia-resolved 7. Tobacco dependence Informed she is not to lock the door to the , she can not be screaming and yelling and disturbing other patients and the disrespectful treatment of staff will not be tolerated. Code Visit Inpatient E&M: 68504 Subs Hosp L2
[2019-03-20 08:13] LABS: HEPATITIS B SURFACE AG Negative (Negative); Hepatitis A AB, Total Positive (Negative); Hepatitis A IgM Antibody Positive (Negative); Hepatitis B Core AB IgM Negative (Negative); Hepatitis B Core Ab Total Negative (Negative); Hepatitis C Ab >11.0 s/co ratio (0.0-0.9)
[2019-03-20] MEDS: Thiamine Hydrochloride 100 MG Tablet PO ×2 (09:46→17:33)
[2019-03-20] MEDS: Buprenorphine HCl 2 MG TAB.SUBL SL ×2 (09:46→17:36)
[2019-03-20] MEDS: Folic Acid 1 MG Tablet PO (09:46)
[2019-03-20] MEDS: diazePAM 5 MG Tablet PO ×3 (09:47→22:17)
[2019-03-20] MEDS: Enoxaparin 40 MG/0.4 ML Syringe SC (09:48)
--- NOTE | 2019-03-20 11:01 | CASEMGMT ---
Addendum entered by Liudmila Bosch 03/20/19 11:15: EDWIN received message from Olivia at [facility] stating they don't accept medicaid for residential treatment. Olivia states that [facility] will sometimes do a contract with [facility] funding for patients to come to [facility] for residential treatment that has medicaid. Original Note: Social Work Note SW spent time following up on referrals that was sent yesterday for pt. [facility]'t accept medicaid for residential treatment. EDWIN received call from Jill with [facility] requesting referral to be faxed. SW faxed referral to [facility]. EDWIN placed a call to [facility] and left message for Barron Camp who is director in charge of admissions. EDWIN placed call to [facility] and spoke with Corrine who asked referral be faxed to [phone]. EDWIN also faxed referral to [facility] in [place]. At this time, EDWIN has five referrals sent out to agencies for inpatient treatment for pt. SW waiting for call back from agencies. EDWIN spoke with [employer] who states pt is wanting to speak to this worker. EDWIN spoke with RN who states pt is sleeping at this time. EDWIN will follow up with pt later this afternoon. SW to continue to follow Liudmila Bosch LAND ACQUISITION ANALYST, NETWORK PROGRAMMER
[2019-03-20] MEDS: Dicyclomine 10 MG Capsule 20 MG PO (11:38)
[2019-03-20 11:52] LABS: Hep B Surface Antibodies Reactive (.)
--- NOTE | 2019-03-20 12:05 | CASEMGMT ---
Social Work Note Update on agencies that this worker has tried to contact regarding residential treatment for pt. 1. [facility] - doesn't accept Medicaid 2. [facility] - no female residential treatment 3. [facility] - doesn't accept Medicaid 4. [facility] - doesn't accept Medicaid 5. [facility] - for [facility] only 6[facility] - no residential treatment 7. [facility] - no female residential treatment 8. [facility] - message left, but possible waitlist 9. [facility] - referral faxed and being reviewed 10. [facility] - referral faxed and being reviewed 11. [facility] - referral faxed and being reviewed 12. [facility] - pt doesn't want to return to [facility] 13. [facility] - no female residential treatment 14. [facility] - must be [facility] Resident Pt is adamant that pt need inpatient treatment at discharge. SW waiting for call back from facilities. SW to continue to follow. Liudmila Bosch PRE K TEACHER, ETHYLENE OXIDE PANELBOARD OPERATOR
--- NOTE | 2019-03-20 13:53 | CASEMGMT ---
Addendum entered by Liudmila Bosch 03/20/19 16:15: Physician states she will get pt discharged on Monday so pt can be admitted to inpatient treatment. EDWIN placed a call to Jagruti at [facility] and updated her that pt will be discharged on Monday and this worker will try to arrange transportation for around 12:00pm on Monday which would allow pt to be at facility by 1:30pm. Jagruti states understanding, states pt will have a bed on Monday. Addendum entered by Liudmila Bosch 03/20/19 16:00: *fax number for [facility] is [phone] Addendum entered by Liudmila Bosch 03/20/19 15:31: EDWIN received call from Jagruti with [facility] who states they will have a bed for pt and is able to accept but will need to know discharge day and time. EDWIN spoke with Physician who states pt will not be medically cleared for discharge until Monday. EDWIN placed a call back to Jagruti at [facility] and updated her that pt will not be ready for discharge until Monday. Jagruti states they don't do weekend admissions and wouldn't be able to take pt until Monday if pt doesn't discharge before the weekend. Jagruti states that pt would have to be at [facility] before 2:00pm on Monday. Physician updated. EDWIN received call from Jill at [facility] who states she never received referral and asked for referral be faxed to [phone]. SW refaxed referral. Original Note: Social Work Note EDWIN met with pt. SW updated pt that this worker has tried multiple agencies and is currently waiting for agencies to call this worker back regarding referral. SW updated pt that this worker is having difficulty finding an agency for pt as a lot of the agencies don't take pt's insurance and a lot of them have waitlist. SW updated pt that this worker has four referrals sent out and waiting for call back but again informed pt that this worker can't guarantee that this worker will get pt straight into inpatient treatment. Pt states that she is feeling lost and confused. SW spoke with pt regarding her feelings. Pt states that she was told that her gallbladder is bad and also her liver. SW provided support to pt. Pt states that she has called her mother and grandparents and no one is able to come visit her. Pt states that her relationship with her mother is bad as she found out her mother's was cheating on her mother and she told her mother but her mother believed her and not pt. EDWIN offered support to pt. Pt asks to speak with . EDWIN informed pt that this worker will call Chaplain Bustamante and ask him to see pt. Pt states understanding, denied additional needs or concerns at this time. EDWIN placed a call to [facility] and spoke with Jagruti. Jagruti states she has received the referral and is waiting to speak with RN regarding referral. Jagruti to call this worker back. EDWIN received call from [facility] stating referral has been received and is being forwarded to be reviewed. EDWIN waiting for call back from agencies. EDWIN called Chaplain Robby and left him a message regarding referral. Liudmila Bosch ELECTRIFIER OPERATOR, EXTRACTOR MACHINE OPERATOR
[2019-03-20] MEDS: Ibuprofen 600 MG Tablet PO (14:57)
[2019-03-20] MEDS: Methocarbamol 750 MG Tablet PO ×2 (14:57→22:17)
[2019-03-20] MEDS: hydrOXYzine PAM 25 MG Capsule 50 MG PO (14:58)
--- NOTE | 2019-03-20 16:15 | CHAPLAIN ---
Type of Pastoral Visit _x__ Initial Visit ___ Follow-up Visit ___ On-call Visit ___ General Patient Visit ___ Spiritual Assessment ___ Family Conference ___ Bereavement ___ Rapid Response ___ Code Blue ___ Other (describe below) Pastoral Care Referral From _x__ Patient ___ Family ___ Nurse ___ Physician _x__ Pipe Stem Sawyer ___ Treasury Agent ___ Other (describe below) Sacrament/Intervention _x__ Active listening ___ Anointing ___ Advent ___ Bereavement ___ Communion _x__ Jaja exploration ___ _x__ Life review _x__ Prayer ___ Reconciliation ___ Sacrament of Sick _x__ Supportive presence ___ Wedding ___ Other (describe below) Pastoral Comments SW reports that patient seeks spiritual help; pt speaks of need for help with getting her life turned around and getting her family to reconnect with me; pt states that she went to muslim years ago and has studied various Hinduism religions to make decision for herself; pt says repeatedly that I need to come back to [facility]; pt gives some life history but mostly focuses on her plea for help and support because I can't keep doing this and I need support;
--- NOTE | 2019-03-20 16:53 | PCA ---
PT INSISTING SHE IS NOT TO HAVE HER BED EXIT ON. PT STATED THAT THE RN SAID SHE DIDN'T NEED THE BED EXIT ON. I AHVE TALKED TO RN MANY TIMES ABOUT THE BED EXIT AND THE PT'S RN SAID IT NEEDS TO BE ON. PT THAN STATED THAT THE NURSE THAT COME IN WITH THE DOCTOR EARLIER SAID SHE COULD HAVE IT OFF. [place] HER RN HAS SAID SHE WANTS IT ON BECAUSE OF MEDS PT ARE ON AND BEING VERY DROZEY. PT UPSET WITH ME FOR SETTING IT. I HAVE NOTIFIED ROBERTO RN AND STEFFANIE MID LEVEL PRACTITIONER NURSE.
--- NOTE | 2019-03-20 17:22 | PCA ---
CHARGE NURSE STEFFANIE WILLIS HAS TALKED WITH PT AND THE PT'S RN NYLA AND THEY HAVE DECIDED TO TURN THE BED EXIT OFF.
[2019-03-20] MEDS: LORazepam 1 MG Tablet 2 MG PO (17:37)
--- NOTE | 2019-03-20 22:10 | NURSING ---
rn went in to assess pt, pt irritable asked why is everyone treating me like a monster? explained to pt that this was the first time i had spoken with pt as she was sleeping earlier and that staff are here to take care of her needs that we arent treating her like a monster, pt unable to explain any further attempted to reassure and provide support with no effect. offered pt meds for her withdrawal symptoms. pt wanted to take her dinner tray out to the microwave reminded her that she is on special contact precautions as she has hepatitis A and is reporting diarrhea. offered to get pt a happy meal or snacks pt declined.
[2019-03-20] MEDS: Pramipexole Di-HCl 0.25 MG Tablet PO (22:17)
[2019-03-20] MEDS: Dicyclomine 10 MG Capsule PO (22:18)
[2019-03-21] MEDS: diazePAM 5 MG Tablet PO ×3 (03:03→15:31)
[2019-03-21] MEDS: Buprenorphine HCl 2 MG TAB.SUBL SL ×2 (03:03→09:54)
[2019-03-21 03:13] VITALS: BP 88/50; PULSE 89; RESP 16; TEMP 36.8; O2SAT 100
--- NOTE | 2019-03-21 05:38 | NURSING ---
pt observed in alex by vishnu garcia who notified this rn- went to pt room to remind her that she is on special contact precautions for complaints of diarrhea (none observed through night) and hepatitis A and as was discussed with her last night she needs to remain in her room and use the call light for her needs.
--- NOTE | 2019-03-21 05:40 | NURSING ---
pt stopped this nurse in the alex and asked for cotton balls. This nurse inquired about her room number. Pt responded [id number]. This nurse looked towards the room and noticed the sign for special contact. I informed the pt that she was not to be out in the halls. Pt stated that they told her last night she didn't need to stay in her room. Stated that is why her bed alarm is off and there isn't a pad on her chair. Explained to the pt that being able to get out of bed and walk around in her room is different than being able to walk in the alex. Explained the precautions that we take going in to the room and that she cannot leave her room. Pt walked back to her room. notified primary RN.
[2019-03-21] MEDS: Enoxaparin 40 MG/0.4 ML Syringe SC (09:54)
[2019-03-21] MEDS: Folic Acid 1 MG Tablet PO (09:54)
[2019-03-21] MEDS: Thiamine Hydrochloride 100 MG Tablet PO ×2 (09:54→15:31)
[2019-03-21 10:00] VITALS: BP 98/70; PULSE 95; RESP 18; TEMP 36.2; O2SAT 100
--- NOTE | 2019-03-21 10:42 | CON.PCM_ITS ---
Problem List (1) Hepatitis Status: Acute Reason for Consult: hep A Consulted by: Dr. Correa History of Present Illness: The patient is a 33 year old F with IV heroin/meth use and etoh abuse, presented with several weeks/months not feeling well. Reports fever, chills, body aches, n/v/d, blood in stool for past month, RUQ abd pain, fatigue, not feeling well. Reports her friend also with similar GI symptoms recently. Denies any prior hiv or hepatitis testing. Does share needles sometimes. Also c/o dysuria and vaginal discharge. Came to ED, admitted on ceftriaxone. Found to have elevated LFTs, hepatitis testing sent and showed Hep A and Hep C. Not feeling any better. Reports drinks 12-24 beers a day. Still with diarrhea. Full ROS Performed and neg except as noted above. - Medical History Past Medical History (Chronic Problems): Chronic Problems Kidney stones (Chronic) Seizure disorder (Chronic) Tobacco dependence syndrome (Chronic) Post traumatic stress disorder (PTSD) (Chronic) Moderate major depression (Chronic) Allergies/Adverse Reactions: Allergies ciprofloxacin [From Cipro] Allergy (Verified 03/18/19 15:41) Hives ciprofloxacin HCl [From Cipro] Allergy (Verified 03/18/19 15:41) Hives levetiracetam [From Keppra] Allergy (Verified 03/18/19 15:41) SEIZURES morphine Allergy (Verified 03/18/19 15:41) Shortness of breath ondansetron HCl [From Zofran] Allergy (Verified 03/18/19 15:41) Hives Sulfa (Sulfonamide Antibiotics) Allergy (Verified 03/18/19 15:41) Hives acetaminophen [From [place] [employer]] Adverse Reaction (Verified 03/18/19 15:41) STOMACH CRAMPS hydrocodone bitartrate [From [place] [employer]] Adverse Reaction (Verified 03/18/19 15:41) STOMACH CRAMPS ketorolac tromethamine [From Toradol] Adverse Reaction (Verified 03/18/19 15:41) Abd cramps/diarrhea metoclopramide HCl [From Reglan] Adverse Reaction (Verified 03/18/19 15:41) TACHY ondansetron [From Zofran] Adverse Reaction (Verified 03/18/19 17:45) Other Home Medications: Ambulatory Orders Medication Instructions Recorded NK 09/11/18 - Social History Tobacco Use: cigarettes Alcohol Use: heavy Drug Use: heroin Vital Signs Temp Pulse Resp BP Pulse Ox 97.1 F L 95 18 98/70 100 03/21/19 10:00 03/21/19 10:00 03/21/19 10:00 03/21/19 10:00 03/21/19 10:00 Oxygen Delivery Method Room Air Weight: 51.3 kg Body Mass Index (BMI) 21.3 Laboratory Tests Past 24 Hrs 03/19/19 07:29 Hepatitis A IgM Ab Positive H Hepatitis A Ab Total Positive H Hep Bs Antigen Negative Hep B Core Total Ab Negative Hep B Core IgM Ab Negative Hepatitis C Ab Confirm >11.0 H - Other Studies Radiology: [] reviewed Other Studies: [] Route of nutrition/ use of supplements: [] Nutritional Intake: [] IV Site: [] [place] Catheter: [] - Physical Exam General: Alert, Oriented x3, Cooperative, - - mild distress HEENT: Atraumatic, PERRLA, EOMI Neck: Supple, No Nodes Lungs: Clear to auscultation, Normal air movement Cardiovascular: Regular rate, Regular Rhythm, No murmurs Abdomen: Soft, Non Tender, Non-Distended Extremities: No edema Skin: No rashes IV Site: Peripheral, without redness Musculoskeletal: No Tenderness to Palpation of Joints or Extremities Neurological: Cranial nerves II-XII grossly intact - Assessment/Plan Antibiotics: [] Assessment/Plan: [] Active and Suspected Problems Heroin abuse (Acute) Amphetamine abuse (Acute) Alcohol abuse (Acute) Alcohol withdrawal (Acute) Substance abuse (Acute) Acute hepatitis A - LFTs improving. In combination with 12-24 beers daily and possible hep C co-infection; will check genotype and pcr. Will check hep B SAb to see if she'd benefit from vaccination. Treatment for hep A is supportive care. IVDU and etoh abuse - hiv neg. Plan is for inpatient rehab. dysuria and vaginal discharge - gc/chlam neg. Given ceftriaxone on admit. UA with wbc 0-5 but (+) nitrite and heavy leuk esterase. Will order UCx. Likely would benefit from pelvic exam, testing for BV and trich. Will test for syphilis. C/o one month of dark blood in stool - will check stool guaiac. Thank you, will follow.
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
[2019-03-21 12:59] LABS: Hepatitis B Surface Antibody Reactive
[2019-03-21 15:29] VITALS: BP 105/67; PULSE 96; RESP 18; TEMP 36.8; O2SAT 99
--- NOTE | 2019-03-21 16:08 | CHAPLAIN ---
attempted visit today with patient; at time SW had just left room, RN was in room, and grandmother was visiting; spoke to patient from doorway to offer support and reminder of concern for her; pt had angry words at being in isolation room
--- NOTE | 2019-03-21 18:18 | NURSING ---
security/resource officer arrived to escort pt out- pt is discharged and states she is refusing to leave.
--- NOTE | 2019-03-21 18:19 | NURSING ---
1805 pt escorted back to ms3 via retail security professional. Dr. Correa on ms3 and aware of left floor. pt argumentative upon walking past nurses station, raises voice at times. multiple times pt encouraged/reminded/instructed to head back to her room so she is not disrupting other patients. pt continues to be argumentative. states i am not leaving, i don't care if you discharge me, i am not leaving. pt continues to be argumentative- heads back towards her patient room, still arguing with staff. complaint investigations officer Lotus remains on ms3- calling for resource officer to assist with pt/staff safety.
--- NOTE | 2019-03-21 18:21 | NURSING ---
SUPERVISOR PICKING CREW in to deliver dinner tray and pt missing from room. This RN called tay Camp at [phone]. Pt located outside smoking. Dr. Correa aware and discharged pt. Pt returned to floor and refusing to leave. Security on floor.
--- NOTE | 2019-03-21 18:23 | NURSING ---
[id number] nursing sports equipment supervisor Malaika aware of code brown being initiated d/t staff unable to locate pt on nursing floor. Security phoned with description of pt.
--- NOTE | 2019-03-21 18:27 | DS.PCM_ITS ---
Discharge Date and Diagnosis - Problem List Patient Problems: Active and Suspected Problems Heroin abuse (Acute) Amphetamine abuse (Acute) Alcohol abuse (Acute) Alcohol withdrawal (Acute) Substance abuse (Acute) Hepatitis (Acute) Date of Admission: 03/18/19 Date of Discharge: 03/21/19 - Primary Discharge Diagnosis Active and Suspected Problems Acute opiate withdrawal Acute alcohol withdrawal Acute/active hepatitis A Hyponatremia - Secondary Discharge Diagnosis Chronic Problems Kidney stones (Chronic) Seizure disorder (Chronic) doubtful - she is not on an AED Tobacco dependence syndrome (Chronic) Post traumatic stress disorder (PTSD) (Chronic) - per pt Moderate major depression (Chronic) - per pt - not on antidepressant, I suspect she has borderline personality disorder Polysubstance abuse including alcohol, heroin, cannabis, methamphetamine Hepatitis C Hospital Course and Treatment Imaging Results: Clinical Impression(s) from Imaging Studies Liver Ultrasound 03/20/19 05:55 IMPRESSION: Thickening of the gallbladder wall. Correlation with a nuclear medicine hepatobiliary scan is recommended. Tumefactive sludge is seen within the gallbladder lumen. Electronically Signed: Esteban Alvarenga, at 10:00 EST , Service support , Laboratory Tests 03/21/19 03/20/19 03/19/19 Range/Units 10:57 03:00 07:29 WBC (4.4-11.0) K/mm3 RBC (4.2-5.4) M/mm3 Hgb (12.0-15.0) g/dL Hct (37-47) % MCV (81-99) fL MCH (27.0-32.0) pg MCHC (32-36) g/dL RDW Std Deviation (35.1-43.9) fl RDW Coeff of Chelo (11.6-14.6) % Plt Count (150-450) K/mm3 MPV (6.2-12.0) fl Immature Gran % (Auto) (0.0-0.9) % Neut % (Auto) (47-70) % Lymph % (Auto) (19-41) % [place] % (Auto) (0-10) % Eos % (Auto) (0-5) % Baso % (Auto) (0-1) % Absolute Neuts (auto) (2.0-7.7) X10^3/uL Absolute Lymphs (auto) (0.83-4.51) X10^3/uL Nucleated RBC % (0-5) % Atypical Lymphocytes % Reactive Lymphocytes Platelet Estimate (ADEQ) RBC Morphology (NORM C&C) NORMAL PT (11.7-14.9) SECONDS INR Sodium (136-145) mmol/L Potassium (3.5-5.1) mmol/L Chloride (98-107) mmol/L Carbon Dioxide (21.0-32.0) mmol/L Anion Gap (5-15) BUN (7-18) mg/dL Creatinine (0.55-1.02) mg/dL Estim Creat Clear Calc ml/min Est GFR (MDRD) Af Amer (>60) mL/min Est GFR (MDRD) Non-Af (>60) mL/min BUN/Creatinine Ratio (10-20) RATIO Glucose (74-106) mg/dL Calcium (8.5-10.1) mg/dL Total Bilirubin (0.20-1.00) mg/dL AST (15-37) U/L ALT (13-56) U/L Alkaline Phosphatase (45-117) U/L Total Protein (6.4-8.2) g/dL Albumin (3.2-5.0) g/dL Globulin (2.2-4.2) g/dL Albumin/Globulin Ratio (0.9-2.4) RATIO Lipase (73-393) U/L Serum , Qual Negative Urine Color (Yellow) Urine Clarity (Clear) Urine pH (5.0 - 8.0) Ur Specific [place] (1.002-1.030) Urine Protein (Negative) mg/dl Urine Glucose (UA) (Normal) mg/dl Urine Ketones (Negative) mg/dl Urine Occult Blood (Negative) /ul Urine Nitrite (Negative) Urine Bilirubin (Negative) mg/dL Urine Urobilinogen (Normal) mg/dl Ur Leukocyte Esterase (Negative) /ul Urine RBC (0-5) /hpf Urine WBC (0-5) /hpf Ur Squamous Epith Cells (5-10) /hpf Calcium Oxalate Crystal (<or=2+) /hpf Urine Bacteria (None Seen) /hpf Urine Mucus (<or=2+) /hpf Urine Opiates Screen (< 300 ng/mL) Urine Methadone Screen (< 300 ng/mL) Ur Barbiturates Screen (< 200 ng/mL) Ur Phencyclidine Scrn (< 25 ng/mL) Ur Amphetamines Screen (<1000 ng/mL) U Methamphetamin-MDMA (< 500 ng/mL) U Benzodiazepines Scrn (< 200 ng/mL) Urine Cocaine Screen (< 300 ng/mL) U Cannabinoids Screen (< 50 ng/mL) Ur Drug Screen Comment Ethyl Alcohol mg/dL Chlam trachomat DNA PCR Negative (Negative) Hepatitis A IgM Ab (Negative) Hepatitis A Ab Total (Negative) Hep Bs Antigen (Negative) Hep Bs Antibody Reactive Hep B Core Total Ab (Negative) Hep B Core IgM Ab (Negative) Hepatitis C Ab Confirm (0.0-0.9) s/co ratio HIV 1&2 Antibody Non-Reactive (Nonreactive) N.gonorrhoeae DNA (PCR) Negative (Negative) 03/19/19 03/19/19 03/19/19 Range/Units 07:29 07:29 06:37 WBC (4.4-11.0) K/mm3 RBC (4.2-5.4) M/mm3 Hgb (12.0-15.0) g/dL Hct (37-47) % MCV (81-99) fL MCH (27.0-32.0) pg MCHC (32-36) g/dL RDW Std Deviation (35.1-43.9) fl RDW Coeff of Chelo (11.6-14.6) % Plt Count (150-450) K/mm3 MPV (6.2-12.0) fl Immature Gran % (Auto) (0.0-0.9) % Neut % (Auto) (47-70) % Lymph % (Auto) (19-41) % [place] % (Auto) (0-10) % Eos % (Auto) (0-5) % Baso % (Auto) (0-1) % Absolute Neuts (auto) (2.0-7.7) X10^3/uL Absolute Lymphs (auto) (0.83-4.51) X10^3/uL Nucleated RBC % (0-5) % Atypical Lymphocytes % Reactive Lymphocytes Platelet Estimate (ADEQ) RBC Morphology (NORM C&C) NORMAL PT 13.1 (11.7-14.9) SECONDS INR 1.0 Sodium 135 L (136-145) mmol/L Potassium 3.6 (3.5-5.1) mmol/L Chloride 105 (98-107) mmol/L Carbon Dioxide 24.0 (21.0-32.0) mmol/L Anion Gap 6 (5-15) BUN 7 (7-18) mg/dL Creatinine 0.52 L (0.55-1.02) mg/dL Estim Creat Clear Calc 116.12 ml/min Est GFR (MDRD) Af Amer 173 (>60) mL/min Est GFR (MDRD) Non-Af 143 (>60) mL/min BUN/Creatinine Ratio 13.4 (10-20) RATIO Glucose 81 (74-106) mg/dL Calcium 8.0 L (8.5-10.1) mg/dL Total Bilirubin 5.30 H (0.20-1.00) mg/dL AST 644 H (15-37) U/L ALT 1858 H (13-56) U/L Alkaline Phosphatase 341 H (45-117) U/L Total Protein 6.0 L (6.4-8.2) g/dL Albumin 2.6 L (3.2-5.0) g/dL Globulin 3.4 (2.2-4.2) g/dL Albumin/Globulin Ratio 0.8 L (0.9-2.4) RATIO Lipase (73-393) U/L Serum , Qual Negative Urine Color (Yellow) Urine Clarity (Clear) Urine pH (5.0 - 8.0) Ur Specific [place] (1.002-1.030) Urine Protein (Negative) mg/dl Urine Glucose (UA) (Normal) mg/dl Urine Ketones (Negative) mg/dl Urine Occult Blood (Negative) /ul Urine Nitrite (Negative) Urine Bilirubin (Negative) mg/dL Urine Urobilinogen (Normal) mg/dl Ur Leukocyte Esterase (Negative) /ul Urine RBC (0-5) /hpf Urine WBC (0-5) /hpf Ur Squamous Epith Cells (5-10) /hpf Calcium Oxalate Crystal (<or=2+) /hpf Urine Bacteria (None Seen) /hpf Urine Mucus (<or=2+) /hpf Urine Opiates Screen (< 300 ng/mL) Urine Methadone Screen (< 300 ng/mL) Ur Barbiturates Screen (< 200 ng/mL) Ur Phencyclidine Scrn (< 25 ng/mL) Ur Amphetamines Screen (<1000 ng/mL) U Methamphetamin-MDMA (< 500 ng/mL) U Benzodiazepines Scrn (< 200 ng/mL) Urine Cocaine Screen (< 300 ng/mL) U Cannabinoids Screen (< 50 ng/mL) Ur Drug Screen Comment Ethyl Alcohol mg/dL Chlam trachomat DNA PCR (Negative) Hepatitis A IgM Ab Positive H (Negative) Hepatitis A Ab Total Positive H (Negative) Hep Bs Antigen Negative (Negative) Hep Bs Antibody Hep B Core Total Ab Negative (Negative) Hep B Core IgM Ab Negative (Negative) Hepatitis C Ab Confirm >11.0 H (0.0-0.9) s/co ratio HIV 1&2 Antibody (Nonreactive) N.gonorrhoeae DNA (PCR) (Negative) 03/19/19 03/18/19 03/18/19 Range/Units 06:37 17:15 17:15 WBC 4.5 (4.4-11.0) K/mm3 RBC 4.58 (4.2-5.4) M/mm3 Hgb 13.7 (12.0-15.0) g/dL Hct 40.2 (37-47) % MCV 87.8 (81-99) fL MCH 29.9 (27.0-32.0) pg MCHC 34.1 (32-36) g/dL RDW Std Deviation 43.8 (35.1-43.9) fl RDW Coeff of Chel[place] 13.6 (11.6-14.6) % Plt Count 163 (150-450) K/mm3 MPV 12.1 H (6.2-12.0) fl Immature Gran % (Auto) 0.200 (0.0-0.9) % Neut % (Auto) 42.1 L (47-70) % Lymph % (Auto) 42.2 H (19-41) % [place] % (Auto) 11.2 H (0-10) % Eos % (Auto) 3.4 (0-5) % Baso % (Auto) 0.9 (0-1) % Absolute Neuts (auto) 1.9 L (2.0-7.7) X10^3/uL Absolute Lymphs (auto) 1.88 (0.83-4.51) X10^3/uL Nucleated RBC % 0 (0-5) % Atypical Lymphocytes % Reactive Lymphocytes Platelet Estimate (ADEQ) RBC Morphology (NORM C&C) NORMAL PT (11.7-14.9) SECONDS INR Sodium 133 L (136-145) mmol/L Potassium 4.7 (3.5-5.1) mmol/L Chloride 99 (98-107) mmol/L Carbon Dioxide 29.0 (21.0-32.0) mmol/L Anion Gap 5 (5-15) BUN 10 (7-18) mg/dL Creatinine 0.69 (0.55-1.02) mg/dL Estim Creat Clear Calc 87.51 ml/min Est GFR (MDRD) Af Amer 126 (>60) mL/min Est GFR (MDRD) Non-Af 104 (>60) mL/min BUN/Creatinine Ratio 14.6 (10-20) RATIO Glucose 80 (74-106) mg/dL Calcium 8.3 L (8.5-10.1) mg/dL Total Bilirubin 6.20 H (0.20-1.00) mg/dL AST 1083 H (15-37) U/L ALT 2540 H (13-56) U/L Alkaline Phosphatase 384 H (45-117) U/L Total Protein 6.8 (6.4-8.2) g/dL Albumin 2.9 L (3.2-5.0) g/dL Globulin 3.9 (2.2-4.2) g/dL Albumin/Globulin Ratio 0.7 L (0.9-2.4) RATIO Lipase 166 (73-393) U/L Serum , Qual Negative Urine Color (Yellow) Urine Clarity (Clear) Urine pH (5.0 - 8.0) Ur Specific [place] (1.002-1.030) Urine Protein (Negative) mg/dl Urine Glucose (UA) (Normal) mg/dl Urine Ketones (Negative) mg/dl Urine Occult Blood (Negative) /ul Urine Nitrite (Negative) Urine Bilirubin (Negative) mg/dL Urine Urobilinogen (Normal) mg/dl Ur Leukocyte Esterase (Negative) /ul Urine RBC (0-5) /hpf Urine WBC (0-5) /hpf Ur Squamous Epith Cells (5-10) /hpf Calcium Oxalate Crystal (<or=2+) /hpf Urine Bacteria (None Seen) /hpf Urine Mucus (<or=2+) /hpf Urine Opiates Screen (< 300 ng/mL) Urine Methadone Screen (< 300 ng/mL) Ur Barbiturates Screen (< 200 ng/mL) Ur Phencyclidine Scrn (< 25 ng/mL) Ur Amphetamines Screen (<1000 ng/mL) U Methamphetamin-MDMA (< 500 ng/mL) U Benzodiazepines Scrn (< 200 ng/mL) Urine Cocaine Screen (< 300 ng/mL) U Cannabinoids Screen (< 50 ng/mL) Ur Drug Screen Comment Ethyl Alcohol < 3.0 mg/dL Chlam trachomat DNA PCR (Negative) Hepatitis A IgM Ab (Negative) Hepatitis A Ab Total (Negative) Hep Bs Antigen (Negative) Hep Bs Antibody Hep B Core Total Ab (Negative) Hep B Core IgM Ab (Negative) Hepatitis C Ab Confirm (0.0-0.9) s/co ratio HIV 1&2 Antibody (Nonreactive) N.gonorrhoeae DNA (PCR) (Negative) 03/18/19 03/18/19 03/18/19 Range/Units 17:15 15:55 15:55 WBC 4.3 L (4.4-11.0) K/mm3 RBC 4.95 (4.2-5.4) M/mm3 Hgb 14.4 (12.0-15.0) g/dL Hct 43.0 (37-47) % MCV 86.9 (81-99) fL MCH 29.1 (27.0-32.0) pg MCHC 33.5 (32-36) g/dL RDW Std Deviation 44.0 H (35.1-43.9) fl RDW Coeff of Chel[place] 13.9 (11.6-14.6) % Plt Count 190 (150-450) K/mm3 MPV 12.8 H (6.2-12.0) fl Immature Gran % (Auto) 0.200 (0.0-0.9) % Neut % (Auto) 45.7 L (47-70) % Lymph % (Auto) 35.7 (19-41) % [place] % (Auto) 15.0 H (0-10) % Eos % (Auto) 2.5 (0-5) % Baso % (Auto) 0.9 (0-1) % Absolute Neuts (auto) 2.0 (2.0-7.7) X10^3/uL Absolute Lymphs (auto) 1.55 (0.83-4.51) X10^3/uL Nucleated RBC % 0 (0-5) % Atypical Lymphocytes 1+ % Reactive Lymphocytes 1+ Platelet Estimate ADEQUATE (ADEQ) RBC Morphology NORM C+C (NORM C&C) NORMAL PT (11.7-14.9) SECONDS INR Sodium (136-145) mmol/L Potassium (3.5-5.1) mmol/L Chloride (98-107) mmol/L Carbon Dioxide (21.0-32.0) mmol/L Anion Gap (5-15) BUN (7-18) mg/dL Creatinine (0.55-1.02) mg/dL Estim Creat Clear Calc ml/min Est GFR (MDRD) Af Amer (>60) mL/min Est GFR (MDRD) Non-Af (>60) mL/min BUN/Creatinine Ratio (10-20) RATIO Glucose (74-106) mg/dL Calcium (8.5-10.1) mg/dL Total Bilirubin (0.20-1.00) mg/dL AST (15-37) U/L ALT (13-56) U/L Alkaline Phosphatase (45-117) U/L Total Protein (6.4-8.2) g/dL Albumin (3.2-5.0) g/dL Globulin (2.2-4.2) g/dL Albumin/Globulin Ratio (0.9-2.4) RATIO Lipase (73-393) U/L Serum , Qual Negative Urine Color Yellow (Yellow) Urine Clarity Cloudy (Clear) Urine pH 6.5 (5.0 - 8.0) Ur Specific [place] 1.020 (1.002-1.030) Urine Protein 30 H (Negative) mg/dl Urine Glucose (UA) Normal (Normal) mg/dl Urine Ketones 5 H (Negative) mg/dl Urine Occult Blood 25 H (Negative) /ul Urine Nitrite Positive H (Negative) Urine Bilirubin 6 H (Negative) mg/dL Urine Urobilinogen 8 H (Normal) mg/dl Ur Leukocyte Esterase 100 H (Negative) /ul Urine RBC 0-5 SEEN (0-5) /hpf Urine WBC 0-5 SEEN (0-5) /hpf Ur Squamous Epith Cells 10-25 SEEN (5-10) /hpf Calcium Oxalate Crystal 4+ (<or=2+) /hpf Urine Bacteria 4+ (None Seen) /hpf Urine Mucus 0 SEEN (<or=2+) /hpf Urine Opiates Screen NEGATIVE (< 300 ng/mL) Urine Methadone Screen NEGATIVE (< 300 ng/mL) Ur Barbiturates Screen NEGATIVE (< 200 ng/mL) Ur Phencyclidine Scrn NEGATIVE (< 25 ng/mL) Ur Amphetamines Screen POSITIVE H (<1000 ng/mL) U Methamphetamin-MDMA NEGATIVE (< 500 ng/mL) U Benzodiazepines Scrn NEGATIVE (< 200 ng/mL) Urine Cocaine Screen NEGATIVE (< 300 ng/mL) U Cannabinoids Screen POSITIVE H (< 50 ng/mL) Ur Drug Screen Comment Ethyl Alcohol mg/dL Chlam trachomat DNA PCR (Negative) Hepatitis A IgM Ab (Negative) Hepatitis A Ab Total (Negative) Hep Bs Antigen (Negative) Hep Bs Antibody Hep B Core Total Ab (Negative) Hep B Core IgM Ab (Negative) Hepatitis C Ab Confirm (0.0-0.9) s/co ratio HIV 1&2 Antibody (Nonreactive) N.gonorrhoeae DNA (PCR) (Negative) 03/18/19 Range/Units 15:43 WBC (4.4-11.0) K/mm3 RBC (4.2-5.4) M/mm3 Hgb (12.0-15.0) g/dL Hct (37-47) % MCV (81-99) fL MCH (27.0-32.0) pg MCHC (32-36) g/dL RDW Std Deviation (35.1-43.9) fl RDW Coeff of [place] (11.6-14.6) % Plt Count (150-450) K/mm3 MPV (6.2-12.0) fl Immature Gran % (Auto) (0.0-0.9) % Neut % (Auto) (47-70) % Lymph % (Auto) (19-41) % [place] % (Auto) (0-10) % Eos % (Auto) (0-5) % Baso % (Auto) (0-1) % Absolute Neuts (auto) (2.0-7.7) X10^3/uL Absolute Lymphs (auto) (0.83-4.51) X10^3/uL Nucleated RBC % (0-5) % Atypical Lymphocytes % Reactive Lymphocytes Platelet Estimate (ADEQ) RBC Morphology (NORM C&C) NORMAL PT (11.7-14.9) SECONDS INR Sodium (136-145) mmol/L Potassium (3.5-5.1) mmol/L Chloride (98-107) mmol/L Carbon Dioxide (21.0-32.0) mmol/L Anion Gap (5-15) BUN (7-18) mg/dL Creatinine (0.55-1.02) mg/dL Estim Creat Clear Calc ml/min Est GFR (MDRD) Af Amer (>60) mL/min Est GFR (MDRD) Non-Af (>60) mL/min BUN/Creatinine Ratio (10-20) RATIO Glucose (74-106) mg/dL Calcium (8.5-10.1) mg/dL Total Bilirubin (0.20-1.00) mg/dL AST (15-37) U/L ALT (13-56) U/L Alkaline Phosphatase (45-117) U/L Total Protein (6.4-8.2) g/dL Albumin (3.2-5.0) g/dL Globulin (2.2-4.2) g/dL Albumin/Globulin Ratio (0.9-2.4) RATIO Lipase (73-393) U/L Serum , Qual NEGATIVE Negative Urine Color (Yellow) Urine Clarity (Clear) Urine pH (5.0 - 8.0) Ur Specific [place] (1.002-1.030) Urine Protein (Negative) mg/dl Urine Glucose (UA) (Normal) mg/dl Urine Ketones (Negative) mg/dl Urine Occult Blood (Negative) /ul Urine Nitrite (Negative) Urine Bilirubin (Negative) mg/dL Urine Urobilinogen (Normal) mg/dl Ur Leukocyte Esterase (Negative) /ul Urine RBC (0-5) /hpf Urine WBC (0-5) /hpf Ur Squamous Epith Cells (5-10) /hpf Calcium Oxalate Crystal (<or=2+) /hpf Urine Bacteria (None Seen) /hpf Urine Mucus (<or=2+) /hpf Urine Opiates Screen (< 300 ng/mL) Urine Methadone Screen (< 300 ng/mL) Ur Barbiturates Screen (< 200 ng/mL) Ur Phencyclidine Scrn (< 25 ng/mL) Ur Amphetamines Screen (<1000 ng/mL) U Methamphetamin-MDMA (< 500 ng/mL) U Benzodiazepines Scrn (< 200 ng/mL) Urine Cocaine Screen (< 300 ng/mL) U Cannabinoids Screen (< 50 ng/mL) Ur Drug Screen Comment Ethyl Alcohol mg/dL Chlam trachomat DNA PCR (Negative) Hepatitis A IgM Ab (Negative) Hepatitis A Ab Total (Negative) Hep Bs Antigen (Negative) Hep Bs Antibody Hep B Core Total Ab (Negative) Hep B Core IgM Ab (Negative) Hepatitis C Ab Confirm (0.0-0.9) s/co ratio HIV 1&2 Antibody (Nonreactive) N.gonorrhoeae DNA (PCR) (Negative) Microbiology 03/21/19 15:30 Stool Stool Occult Blood (WENDY) - Final Dr. Remington Mario-infectious disease Operations: None Procedures: None Summary of Care Provided: The patient is a 33-year-old female with a past medical history of tobacco dependence, PTSD (on no meds), depression(on no meds), seizure disorder (per pt...on no AED's), nephrolithiasis and polysubstance (ETOH, heroin, cannabis and methamphetamine) abuse who presented to the ED at [facility] on 03/18/19 c/o abdominal pain and low back pain. Stated her last use was 24 hours prior to presenting to the emergency room. He stated she was homeless. She requested inpatient admission for medical stabilization for acute alcohol withdrawal and acute opiate withdrawal. Vital signs at presentation to the emergency department were temperature 97.2, pulse rate 93, blood pressure 92, respiratory rate 15 and she was 97% saturated on room air. White blood cell count was mildly decreased at 4.3 but the remainder of the CBC was unremarkable. Sodium was mildly decreased at 133 but the remainder of the BMP was unremarkable. Total bilirubin was increased at 6.2 AST was 1083 and ALT was 2540. Alkaline phosphatase was 384. A clean-catch urine was obtained but was contaminated and had 10-25 squamous epithelial cells per high-power field and 0-5 WBCs Per high-power field. Tox screen was positive for amphetamines and cannabinoids. Ethyl alcohol was less than 3.0. She was admitted to a medical surgical floor and the acute opiate withdrawal protocol was initiated. She was also started on the protocol for acute alcohol withdrawal with a Diazepam taper. A hepatitis panel was done and she was positive for hepatitis A IgM and positive for hepatitis A antibody total. Hepatitis B surface antigen was negative. Hepatitis B core IgM antibody was negative. Hepatitis C antibody was greater than 11. HIV was negative. PCR for Chlamydia trachomatis was negative. PCR for Neisseria gonorrhea was negative. She was disrespectful of the nursing staff and was swearing at them. She was screaming in her room and disturbing the other patients. She locked herself in the bathroom and despite being told not to leave the floor she got dressed and went outside. she reeked of cigarette smoke and when the nursing room service supervisor returned her to the floor she said she went outside to call her dtr and did not know she was not to leave the floor. I explained this to her myself 2 days prior to the event. She is manipulative and can not follow the rules. She was told she would be discharged if she did not follow the rules on 03/19 and 03/20 and she continued to break the rules. She has an appt at [facility] tomorrow at 12:00 PM and if she chooses she can get herself there. Hepatitis B surface antibody, hepatitis C serotype and quantitative RNA are pending at the time of discharge. She was not given prescriptions at [facility]. PHYSICAL EXAM: GENERAL: alert, oriented X 3, Cooperative, NAD, good oral intake without vomiting, able to walk without assist right out of the building ORAL: moist mucosa, no mucosal lesions NECK: No JVD, supple, trachea midline LUNGS: CTA, symmetric chest expansion HEART: RRR, Normal S1 and S2, no rub, no gallop ABDOMEN: soft, NT, ND, BS present, no guarding with palpation EXTREMITIES: no edema, no cyanosis, no calf tenderness SKIN: No rashes, no breakdown NEUROLOGIC: no focal neurologic deficits PSYCH: manipulative, lies, deliberately defies the rules under which she could remain in the hospital until [facility] to [facility]. This note was generated with PCA Auditation software. It may contain incorrect words, spelling, and punctuation that were not noted in checking the note before signing. Patient Problems: Active and Suspected Problems Heroin abuse (Acute) Amphetamine abuse (Acute) Alcohol abuse (Acute) Alcohol withdrawal (Acute) Substance abuse (Acute) Hepatitis (Acute) - Physical Exam Vitals/I&O's: Vital Signs Temp Pulse Resp BP Pulse Ox 98.3 F 96 18 105/67 99 03/21/19 15:29 03/21/19 15:29 03/21/19 15:29 03/21/19 15:29 03/21/19 15:29 Oxygen Delivery Method Room Air Weight: 113 lb 1.554 oz Body Mass Index (BMI) 21.3 Intake and Output for Last 24 Hours 03/19/19 03/20/19 03/21/19 23:59 23:59 23:59 Intake Total 2670 / 2670 720 / 720 Balance 2670 / 2670 720 / 720 Microbiology Past 72 Hours 03/21/19 15:30 Stool Stool Occult Blood (WENDY) - Final Laboratory Results 03/21/19 10:57: HCV RNA Quant (PCR) Pending, Hepatitis C Genotype Pending 03/21/19 10:57: Hep Bs Antibody Reactive 03/21/19 10:57: RPR Pending Current Medications Buprenorphine HCl (Buprenorphine Hcl) 2 mg SL Q12H MELINA; Taper Stop: 03/22/19 21:59 Last Admin: 03/21/19 09:54 Dose: 2 mg Documented by: Clonidine (Catapres) 0.1 mg PO Q2H PRN PRN PRN Reason: Hot/Cold Sweats or Anxiety Last Admin: 03/19/19 15:44 Dose: 0.1 mg Documented by: Diazepam (Valium) 5 mg PO Q6H MELINA; Taper Stop: 03/23/19 21:59 Last Admin: 03/21/19 15:31 Dose: 5 mg Documented by: Dicyclomine HCl (Bentyl) 10 mg PO Q6H PRN PRN PRN Reason: Abdomnial Discomfort Last Admin: 03/20/19 22:18 Dose: 10 mg Documented by: Enoxaparin Sodium (Lovenox) 40 mg SC DAILY@1000 MELINA Last Admin: 03/21/19 09:54 Dose: 40 mg Documented by: Hydroxyzine Pamoate (Vistaril Pamoate Capsule) 25 mg PO Q6H PRN PRN PRN Reason: Mild Anxiety Ibuprofen (Motrin) 600 mg PO Q8H PRN PRN Reason: pain 1-5 Last Admin: 03/20/19 14:57 Dose: 600 mg Documented by: Lorazepam (Ativan) 2 mg PO Q2H PRN PRN; Protocol PRN Reason: CIWA score > 8 but <15 Last Admin: 03/20/19 17:37 Dose: 2 mg Documented by: Lorazepam (Ativan) 2 mg PO UD PRN; Protocol PRN Reason: CIWA score >/=15. Lorazepam (Ativan) 2 mg IV Q2H PRN PRN; Protocol PRN Reason: CIWA score > 8 but <15 Last Admin: 03/19/19 05:58 Dose: 2 mg Documented by: Lorazepam (Ativan) 2 mg IV UD PRN; Protocol PRN Reason: CIWA score >/=15. Methocarbamol (Methocarbamol) 750 mg PO Q6H PRN PRN PRN Reason: Muscle Aches Last Admin: 03/20/19 22:17 Dose: 750 mg Documented by: Nicotine (Nicoderm Cq (Pbkc)) 21 mg TRANSDERM. DAILY MELINA Last Admin: 03/21/19 09:54 Dose: 21 mg Documented by: Pramipexole Dihydrochloride (Mirapex) 0.25 mg PO Q12H PRN PRN PRN Reason: Restless Legs Last Admin: 03/20/19 22:17 Dose: 0.25 mg Documented by: Sodium Chloride () 10 - 40 ml IV UD PRN PRN Reason: SALINE FLUSH Last Admin: 03/19/19 09:32 Dose: 10 ml Documented by: Home Medications: Medications to take at Discharge NK 09/11/18 Primary Care Physician: Rashaun Narvaez MD [Primary Care Provider] - Disposition: Home Minutes spent on discharge:: 30 Patient Condition:: Stable Medical Necessity - Tobacco Use Smoking Status: Current every day smoker Tobacco Use: Cigarettes, - - cannabis Meaningful Use Info Meaningful Use Diagnoses (Choose all that apply): None applicable Code Visit Inpatient E&M: 08248 Disch Hosp
--- NOTE | 2019-03-21 19:00 | PCA ---
went in patient room to take her dinner. After getting gown on looked in bathroom patient wasn't there. looked in closet not there. Called for nurse to tell her patient isnt in room. Nurse called charge and other nurses the patient wasn't on the floor. This GROUND SERVICES INSTRUCTOR went off the floor to look outside found patient sitting on bench smoking and talking on phone. Security came down and i told her it was patient. walked with the patient up to the floor. Patient asked me what she did wrong, told her she isnt suppose to be outside nor off floor. Came up on floor nurse and doctor was waiting on her.
--- NOTE | 2019-03-21 19:30 | NURSING ---
Patient's grandmother here to transport patient home. Nasir Villareal and walked pt out at this time. Grandmother upset. Situation explained. Patient left floor without permission. She asked a home aide when trying to find the way out where the elevators were. She was in regular street clothes so the skate hop did not know she was a patient. Anabel snyder was called at [phone] when dinner delivered to room by POWER GENERATION ENGINEER and patient was not in isolation room. POWER GENERATION ENGINEER found patient outside on phone smoking. Dr. Correa on floor at this time and discharged pt due to non compliance. Pt escorted back to floor by GAETANO and security. Pt notified that she was discharged since she has not followed the rules. Patient upset and Nasir came to floor to handle situation. Grandmother Nakita called to keep patient overnight. Nakita is to call in the am to set up transport for patient to [facility]. Med Surg 3 phone number provided to Nakita.
--- NOTE | 2019-03-21 19:36 | NURSING ---
Addendum entered by Rasheeda Valencia 03/21/19 19:54: note left at CM desk with opal phone number and note regarding discharge/transportation needs to connect with CM/Nakita tomorrow. Nakita also provided phone number to nurses station and to ask for CM, informing that CM usually here by 0900 Addendum entered by Rasheeda Valencia 03/21/19 19:46: teaching information was from [facility]- not [facility] Original Note: 1924- Resource Officer Nasir and biosecurity officer Lotus escort pt and pt grandmother nakita upon walking by nurses station, both pt and her grandmother stop and start becoming argumentative with staff about pt leaving. Pt grandmother states 'you are just dumping her out, i want a statement from the doctor telling me specifically why she is being discharged. And she is contagious and you expect me to take her home. I want a statement, you call the doctor right now! attempted to reason/provide education- however grandmother and patient continue to interrupt staff, raise voice and yell at staff. Said nurse reinforced teaching information provided to Nakita and pt from [facility] regarding Hepatitis A and Hepatitis C. Nakita continues to argue with nurse and states just pink slip her, this is what happens to drug addicts, everyone just dumps them. Cant you just drug her and knock her out, that is what they all need. reinforced discharge order and Nakita/patient given patient advocate number by resource officer Nasir. As pt/Nakita turn to leave the floor, both continue to argue with staff/resource/security office who is escorting both off the floor for discharge.
--- NOTE | 2019-03-22 08:35 | NURSING ---
Patient called in to floor stating that she spoke to [facility] this morning and they informed her that she was no longer anticipated as a patient. She was uncertain of what to do as far as her after care for her detox admission. Patient states that she still does not feel well and she believes that she is still in withdrawal. This nurse explained that if she feels that if she needs medical treatment she is able to seek care at a local urgent care or emergency room and then she could be evaluated for the appropriate medical care. Patient acknowledges understanding. This nurse told the patient that this nurse would follow up regarding post discharge care. Unable to reach social work at this time but reviewed social work notes and noted that patient had apparent arrangements for [facility] in [place]. Attempted to call [facility] ([phone]). Spoke to the beef boner who attempted to transfer phone call to Jagruti (the individual listed in gang worker note documented by Liudmila Bosch). Upon transferring this nurse's call call, this nurse spoke to an individual at the nurse's station who stated that [place] does not come in until 0900. This nurse then called the patient back and informed her of the information including that Jagruti at [facility] and Liudmila gang worker at [facility] were unable to be reached at this time but it appeared according to documentation that [facility] was the intended plan for post discharge care. Provided patient with phone number for [facility] and stated that she would likely need to wait until 0900 to speak to someone knowledgeable of the specifics. This nurse utilized read-back to ensure that the patient could repeat the name of the individual at [facility] (Jagruti) and the phone number of the institution ([phone]). Asked the patient if there was anything else that [facility] could help her with. She stated that she will follow up with [facility] and denied further needs at this time.
--- NOTE | 2019-03-22 09:23 | CASEMGMT ---
Addendum entered by Liudmila Bosch 03/22/19 10:18: SW called [facility] and spoke with Marilyn and asked Marilyn to pick pt up at ED not main entrance. Original Note: Social Work Note SW spoke with Patrick Braga home health care social worker regarding pt. Patrick Braga states [facility] will still pay for cab to [facility] but pt has to be come to ED and ask for [facility] and wait for cab in the ED. Pt is not coming to [facility] to be admitted but coming to [facility] to wait for taxi cab to transport pt. SW received call from pt. SW updated pt that [facility] has a bed for pt and she needs to go there today. Pt states she needs transportation. SW asked pt if her grandmother is able to transport pt and pt denied. SW informed pt that she will need to come to ED before 12:00pm, not to be admitted, but to ask for [facility] in the ED. SW informed pt that cab will be paid for by [facility] but again informed pt she will need to be at [facility] before 12:00pm. SW informed pt that if she is late to ED then the cab will leave and pt will be responsible for finding own transportation to facility. Pt asks if she finds transportation before then if she can go to facility and this worker informed her that yes she can go to facility anytime. Pt states understanding. Patrick Braga to update ED staff and ED SW. Liudmila Bosch SKIP LOCATOR, DIRECTOR DISTRIBUTION
[2019-03-25 14:29] LABS: HCV Quant. RNA PCR HCV Not Detected IU/mL (.)
[2019-03-28 02:45] LABS: Rapid Plasmin Reagin (RPR) NONREACTIVE (NONREACTIVE)
== END 2019-03-21 19:30 | disposition home or self-care (01) | DRG 773 ==
LOC: ED 21:10 → MS3 21:14
PROVIDERS: Internal Medicine Infectious Disease; Admitting Provider Family Medicine; Emergency Provider Emergency Medicine; Family Provider Family Medicine; PCP Family Medicine; Visit Provider Internal Medicine
DX: F11.23 Opioid dependence with withdrawal (principal); F10.239 Alcohol dependence with withdrawal, unspecified; E87.1 Hypo-osmolality and hyponatremia; F17.210 Nicotine dependence, cigarettes, uncomplicated; B15.9 Hepatitis A without hepatic coma; F15.10 Other stimulant abuse, uncomplicated; F12.10 Cannabis abuse, uncomplicated; B19.20 Unspecified viral hepatitis C without hepatic coma; Y90.0 Blood alcohol level of less than 20 mg/100 ml
CPT/HCPCS: 36415; 76705; 80048; 80053; 80307; 80320; 81001; 82274; 83690; 84703; 85025; 85610; 86592; 86703; 86704; 86705; 86706; 86708; 86709; 86803; 87086; 87088; 87186; 87340; 87491; 87522; 87591; 87902; 97802; 99285; 99406; J7030; A4216; G0480

== ENCOUNTER 2019-05-03 09:44 | Emergency (ER) | payer MEDICAID, SELFPAY ==
[2019-05-03] VITALS (7 sets, daily range): BP systolic 99–116; BP diastolic 63–85; PULSE 73–94; RESP 16–18; TEMP 36.7–37.1; O2SAT 96–99; BMI 18.8
--- NOTE | 2019-05-03 09:59 | CT_ITS ---
STUDY: CT ORBITS WITH CONTRAST REASON FOR EXAM: Female, 34 years old. PERIORBITAL CELLULITIS LEFT EYE RADIATION DOSAGE (If Supplied By Facility): CTDIvol = ( 6.40 ) mGy, DLP = ( 90.16 ) mGycm TECHNIQUE: The patient was scanned in a multi detector CT scanner. Transaxial imaging was performed following the intravenous administration of contrast material. Sagittal and coronal images were reconstructed. Individualized dose optimization techniques were used for this CT. COMPARISON: None. FINDINGS: Moderate soft tissue swelling is present in the medial aspect of the left orbit and over the nasal bridge. No intraorbital fluid collections or edema or inflammatory stranding is seen. Mild periorbital/limited edema is also present across the left orbit. The left parotid gland is diffusely enlarged with some areas of nodularity and enhancement and a moderately enlarged lymph node at the anterior aspect of the left parotid gland measuring 1.21 cm in diameter. These findings are likely due to infectious and inflammatory parotitis and periorbital cellulitis. Mild left facial subcutaneous edema is present. The right side of the face is normal. No abscesses are present. Normal globes. Normal intraconal spaces. Normal optic nerve sheath complex. Normal bilateral extraocular muscles. Normal lacrimal glands. Normal bilateral medial and inferior orbital claros. Normal bilateral maxillary bones. Normal bilateral frontozygomatic arches. Normal bilateral zygomatic temporal arches. Normal frontal sinus. The right middle ethmoid air cells are completely filled with mucus. There is mild mucosal thickening of the right maxillary sinus. The left paranasal sinuses are clear. Normal sphenoid sinuses. CT/Orb Sella Post Fossa Ear W/CON IMPRESSION: 1. Moderate soft tissue swelling is present in the medial aspect of the left orbit and over the nasal bridge. No intraorbital fluid collections or edema or inflammatory stranding is seen. 2. Mild periorbital/limited edema is also present across the left orbit. 3. The left parotid gland is diffusely enlarged with some areas of nodularity and enhancement and a moderately enlarged lymph node at the anterior aspect of the left parotid gland measuring 1.21 cm in diameter. 4. These findings are likely due to infectious and inflammatory parotitis and periorbital cellulitis. 5. Mild left facial subcutaneous edema is present. The right side of the face is normal. Electronically Signed: Dony Washburn MD at 12:52 EST , Service support ,
--- NOTE | 2019-05-03 10:04 | ED.VISSUMM ---
- ER Visit Summary Date of Service: 05/03/19 Chief Complaint: Left periorbital redness and swelling History of Present Illness: The patient is a 34 F who presents with redness and swelling around her left periorbital area that is been getting worse over the past couple days. Patient was seen at [facility] and was given a prescription for clindamycin. Patient states the redness and swelling is getting a little worse since that time. Patient states the area has been draining spontaneously. Patient admits to some blurred vision in her left eye. Patient describes her pain as sharp. Patient denies any fevers or chills. Patient denies any nausea or vomiting. Physical Examination: Vital signs are stable. Patient is afebrile. Patient is in no acute distress. Skin is warm dry. There is some erythema and mild tenderness over the left periorbital area. There is no fluctuance or evidence of any abscess. There is a healing area where the drainage was coming from. This is dried at the present time. Pupils are equal, round, and reactive to light bilaterally. Extraocular muscles are intact. There is some mild pain with upward gaze. Neck is supple. Trachea is midline. There is left anterior cervical lymphadenopathy. Heart was regular rate and rhythm. Lungs are clear and equal bilaterally. Cranial nerves II through XII are intact. There are no focal motor or sensory deficits noted. Test Results: CBC and basic metabolic profile were essentially within normal limits. CT scan of the orbits was obtained. There is some periorbital cellulitis but no orbital cellulitis. There is also some parotitis noted. These were interpreted by the radiologist. Emergency Department Course and Treatment: Patient was given a dose of clindamycin IV here. Patient was given a dose of ibuprofen here for her headache. Patient was requesting a migraine cocktail. Patient was given Phenergan, Toradol, and Benadryl. Patient felt better after this. Patient was instructed to continue her clindamycin as previously prescribed. Patient was instructed to follow-up with her primary care physician in 5 to 7 days. Patient understood and was agreeable with the plan. All questions were answered. Disposition: Discharge home Impression: 1. Left periorbital cellulitis 2. Parotitis This note was generated with Tweet Categoryation software. It may contain incorrect words, spelling, and punctuation that were not noted in review of the chart prior to signing ED Disposition - Plan for ED Patient: Disposition: Home or Assisted Living Diagnosis: Periorbital cellulitis of left eye, Parotitis Instructions: Cellulitis Referrals: Rashaun Narvaez MD [Primary Care Provider] - 3-5 Days
[2019-05-03 10:35] LABS: Absolute Lymphocyte Count 2.93 X10^3/uL (0.83-4.51); Absolute Neutrophil Count 2.6 X10^3/uL (2.0-7.7); Basophil# 0.06 X10^3/uL; Basophil% 0.9 % (0-1); Eosinophil# 0.42 X10^3/uL; Eosinophils% 6.5 % (0-5); Hematocrit 40.1 % (37-47); Hemoglobin 13.3 g/dL (12.0-15.0); Lymphocyte # 2.93 X10^3/ul (4.0); Lymphocyte % 45.3 % (19-41); Mean Corp Hgb Conc 33.2 g/dL (32-36); Mean Corpuscular Hgb 30.6 pg (27.0-32.0); Mean Corpuscular Volume 92.2 fL (81-99); Mean Platelet Vol. 11.1 fl (6.2-12.0); Monocyte# 0.47 X10^3/uL; Monocyte% 7.3 % (0-10); NRBC Flagged by Analyzer 0 % (0-5); Neutrophil # 2.58 X10^3/uL (2.7-7.7); Neutrophil % 39.8 % (47-70); Platelet Count 222 K/mm3 (150-450); RBC Distribution Width CV 13.1 % (11.6-14.6); RBC Distribution Width SD 44.3 fl (35.1-43.9); Red Blood Count 4.35 M/mm3 (4.2-5.4); White Blood Count 6.5 K/mm3 (4.4-11.0)
--- NOTE | 2019-05-03 10:35 | ED.RN ---
ATTEMPT MADE TO DRAW SECOND BLOOD CULTURE WITHOUT SUCCESS, PATIENT BEGINS SWEARING AND STATES THAT SHE WILL NOT ALLOW ANYMORE ATTEMPTS, DR. GOMEZ MADE AWARE, WILL PROCEED WITHOUT SECOND SET OF BLOOD CULTURES.
[2019-05-03 10:49] LABS: Anion Gap 3 (5-15); BUN 11 mg/dL (7-18); BUN/Creat Ratio 15.5 RATIO (10-20); Calcium,Total 8.7 mg/dL (8.5-10.1); Chloride 110 mmol/L (98-107); Creatinine, Serum 0.71 mg/dL (0.55-1.02); EST Glomerular Filtration Rate 100 mL/min (>60); Est Glom Filt Rate - Afr Amer 121 mL/min (>60); Estimated Creatinine Clearance 79.95 ml/min; Glucose 85 mg/dL (74-106); Potassium 3.7 mmol/L (3.5-5.1); Sodium Level 142 mmol/L (136-145)
[2019-05-03] MEDS: Ibuprofen 200 MG Tablet 800 MG PO (12:58)
[2019-05-03] MEDS: proMETHazine 25 MG/ML Syringe 6.25 MG IV (13:39)
[2019-05-03] MEDS: DiphenhydrAMINE 50 MG/ML Syringe 25 MG IV (13:40)
[2019-05-03] MEDS: Ketorolac 30 MG/ML Syringe IV (13:41)
--- NOTE | 2019-05-03 14:00 | ED.RN ---
UPON DISCHARGING PATIENT, PATIENT FOUND ROAMING IN THE HALLWAY WITH BOYFRIEND. PT REFUSES TO GO BACK TO ROOM FOR DISCHARGE INSTRUCTIONS. PT REFUSED VITALS. PT TOOK DISCHARGE PAPERWORK. ALL QUESTIONS ANSWERED. PT REPORTS RELIEF FROM IV MEDICATIONS. INSTRUCTED TO KEEP TAKING PO CLINDAMYCIN. DENIES FURTHER QUESTIONS. PT AMBULATES SELF OUT WITH STEADY GAIT WITH BOYFRIEND AT SIDE.
== END 2019-05-03 14:03 | disposition home or self-care (01) ==
PROVIDERS: Emergency Provider Emergency Medicine; Family Provider Family Medicine; PCP Family Medicine
DX: L03.213 Periorbital cellulitis (principal); K11.20 Sialoadenitis, unspecified; Z79.2 Long term (current) use of antibiotics
CPT/HCPCS: 70481; 80048; 85025; 87040; 96365; 96375; 99284; J7040; Q9967; A4216

== ENCOUNTER 2019-08-16 13:00 | Emergency (ER) | payer MEDICAID, SELFPAY ==
[2019-05-03 09:46] VITALS: BMI 18.8
[2019-08-16 13:01] VITALS: BP 109/68; PULSE 105; RESP 18; TEMP 36.3; O2SAT 96; BMI 23.2
[2019-08-16] MEDS: MethylPREDNISolone 125 MG/2 ML Vial IV (13:29)
[2019-08-16] MEDS: DiphenhydrAMINE 50 MG/ML Syringe IV (13:29)
[2019-08-16] MEDS: Famotidine 200 MG/20 ML MDV 20 MG in 0.9% Normal Saline (Pres. free 8 ML 300 MG IV (13:33)
[2019-08-16 14:01] VITALS: BP 110/71; PULSE 97; RESP 17; O2SAT 100
--- NOTE | 2019-08-16 14:07 | ED.VISSUMM ---
- ER Visit Summary Date of Service: 08/16/19 Chief Complaint: Lip swelling History of Present Illness: The patient is a [address] Acosta. She reports that she woke up approximate 11:00 today and found that she was itching all over and had swelling of her lips. She took a dose of Benadryl without relief. She denies any change in soap, shampoo, laundry detergent, or fabric softener. No new clothing, bedding, carpeting or pets. No new medications in the past month. Patient denies any dental pain. She does report that she is mildly short of breath. Patient denies drug use since April. Physical Examination: Vitals: Stable. Afebrile. General: Well-nourished and well-developed. Head: Normocephalic atraumatic. HEENT: Swelling of her upper lip left greater than right with mild swelling of her lower lip. There is no angioedema of the tongue or pharynx. Neck: Supple, no lymphadenopathy. No JVD. Nontender. Cardiovascular: Regular rate and rhythm. No murmurs. Respiratory: No respiratory distress. Clear to auscultation bilaterally. Abdominal: Soft, nontender, nondistended, normal bowel sounds. No guarding, rebound, or peritoneal signs. Back: Nontender. Extremities: Nontender, no edema. Track alexander over her forearms bilaterally. There is no erythema, induration, or evidence of infection. Skin: Normal color, no rash. No urticarial lesions. Neurologic: Alert and oriented ?3. Cranial nerves II through XII are intact. Normal strength and sensation. Psych: Normal affect. Emergency Department Course and Treatment: Patient had an IV placed. She was given Benadryl, Pepcid, and Solu-Medrol IV. She is been observed over the course of 2 hours with improvement in her symptoms. Treatment Plan: Patient will be discharged with Zyrtec, prednisone, and Pepcid. Instructed to follow-up with her primary care physician 1 to 2 days if not improving. Return to the emergency department for any worsening symptoms. Disposition: To home in improved and stable condition. Impression: 1. Allergic reaction, acute. 2. History of heroin abuse. This note was generated with i[employer]i Healthation software. It may contain incorrect words, spelling, and punctuation that were not noted in review of the chart prior to signing ED Disposition - Plan for ED Patient: Instructions: ED General Allergic Reactions Prescriptions: Famotidine [Pepcid] 20 mg PO BID #28 tablet predniSONE tablet 60 mg PO DAILY #15 tablet Cetirizine HCl [Zyrtec] 10 mg PO DAILY #14 capsule Referrals: Rashaun Narvaez MD [Primary Care Provider] - 1-2 Days if not improving
[2019-08-16 15:10] VITALS: BP 98/63; PULSE 98; RESP 17; O2SAT 99
== END 2019-08-16 15:11 | disposition home or self-care (01) ==
LOC: ED 14:28
PROVIDERS: Emergency Provider Emergency Medicine; PCP Family Medicine
DX: T78.40XA Allergy, unspecified, initial encounter (principal); F11.11 Opioid abuse, in remission; Z72.0 Tobacco use
CPT/HCPCS: 96374; 96375; 99284; A4216; J3490

== ENCOUNTER 2019-08-21 00:04 | Emergency (ER) | payer MEDICAID, SELFPAY ==
[2019-08-21 00:06] VITALS: BP 123/75; PULSE 87; RESP 16; TEMP 36.6; O2SAT 97; BMI 23.0
--- NOTE | 2019-08-21 00:23 | CT_ITS ---
STUDY: CT BRAIN WITHOUT CONTRAST REASON FOR EXAM: Female, 34 years old. RT HAND NUMBNESS SINCE YESTERDAY. Dizziness. Hx of asthma, Hep C. Not -pt shielded RADIATION DOSAGE (If Supplied By Facility): CTDIvol = ( 44.99 ) mGy, DLP = ( 711.75 ) mGycm TECHNIQUE: Transaxial CT imaging of the brain was performed without administration of intravenous contrast material. Individualized dose optimization techniques were used for this CT. COMPARISON: CT scan brain on 03/29/2016 FINDINGS: Normal soft tissue structures. Normal calvarium. Normal size ventricles and extra-axial spaces for the patient''s age. Normal white matter tracts of the cerebral hemispheres. Normal basal ganglia and thalami. Normal brainstem. Normal cerebellum. There is CSF expansion of the sella turcica, consistent with an empty sella syndrome. This was also present on previous study. There is no intracranial hemorrhage. There are no findings of an acute ischemic infarction. There is mucoperiosteal thickening in the right maxillary sinus and right ethmoid sinus, consistent with chronic disease. There is no evidence for acute sinusitis. CT/Brain/Head without Contrast IMPRESSION: Empty sella syndrome. Otherwise normal unenhanced CT scan of the brain. Electronically Signed: Delmar Maxwell MD at 1:02 EDT , Service support ,
[2019-08-21 00:38] LABS: Absolute Lymphocyte Count 2.76 X10^3/uL (0.83-4.51); Basophil# 0.08 X10^3/uL; Basophil% 1.2 % (0-1); Eosinophil# 0.23 X10^3/uL; Eosinophils% 3.5 % (0-5); Hematocrit 38.8 % (37-47); Hemoglobin 13.3 g/dL (12.0-15.0); Lymphocyte # 2.76 X10^3/ul (4.0); Lymphocyte % 42.2 % (19-41); Mean Corp Hgb Conc 34.3 g/dL (32-36); Mean Corpuscular Hgb 30.4 pg (27.0-32.0); Mean Corpuscular Volume 88.6 fL (81-99); Mean Platelet Vol. 11.8 fl (6.2-12.0); Monocyte# 0.43 X10^3/uL; Monocyte% 6.6 % (0-10); NRBC Flagged by Analyzer 0 % (0-5); Neutrophil # 3.03 X10^3/uL (2.7-7.7); Neutrophil % 46.3 % (47-70); Platelet Count 246 K/mm3 (150-450); RBC Distribution Width CV 11.6 % (11.6-14.6); RBC Distribution Width SD 37.2 fl (35.1-43.9); Red Blood Count 4.38 M/mm3 (4.2-5.4); White Blood Count 6.5 K/mm3 (4.4-11.0)
[2019-08-21 01:27] LABS: Anion Gap 4 (5-15); BUN 13 mg/dL (7-18); BUN/Creat Ratio 14.9 RATIO (10-20); Chloride 107 mmol/L (98-107); Creatinine, Serum 0.87 mg/dL (0.55-1.02); EST Glomerular Filtration Rate 79 mL/min (>60); Est Glom Filt Rate - Afr Amer 96 mL/min (>60); Estimated Creatinine Clearance 68.75 ml/min; Glucose 118 mg/dL (74-106); Potassium 3.6 mmol/L (3.5-5.1); Sodium Level 138 mmol/L (136-145)
[2019-08-21 01:35] VITALS: BP 94/60; PULSE 79; RESP 14; O2SAT 95
--- NOTE | 2019-08-21 01:36 | ED.VISSUMM ---
- ER Visit Summary Date of Service: 08/21/19 Chief Complaint: Numbness right hand History of Present Illness: The patient is a [address] Don Lopez. She has a history of IV methamphetamine abuse. She reports that she has numbness that began in the tip of her right thumb 2 days ago. It has gradually spread to involve her entire right hand and has extended up to her mid right forearm over the past 2 days. This is circumferential. Patient denies any other neurologic symptoms. No change in her vision. No slurred speech. No numbness or weakness otherwise. No vertigo. Physical Examination: Vitals: Stable. Afebrile. General: Well-nourished and well-developed. Head: Normocephalic atraumatic. Neck: Supple, no lymphadenopathy. No JVD. Nontender. Cardiovascular: Regular rate and rhythm. No murmurs. Respiratory: No respiratory distress. Clear to auscultation bilaterally. Abdominal: Soft, nontender, nondistended, normal bowel sounds. No guarding, rebound, or peritoneal signs. Back: Nontender. Extremities: Nontender, no edema. Track alexander in her right antecubital fossa. There is no erythema or induration. No fluctuance. No evidence of infection. 2+ radial pulse bilaterally. Skin: Normal color, no rash. Neurologic: Alert and oriented ?3. Cranial nerves II through XII are intact. Normal strength. Decreased sensation to light touch in a glove distribution from the fingertips up all 5 fingers on her right hand that extends up to the mid forearm. Psych: Normal affect. Test Results: CBC shows segmented feels a 46 lymphocytes 42. Chem-7 shows a glucose of 118. Clinical Impression(s) from Imaging Studies Brain CT 08/21/19 00:23 IMPRESSION: Empty sella syndrome. Otherwise normal unenhanced CT scan of the brain. Electronically Signed: Delmar Maxwell MD at 1:02 EDT , Service support , Emergency Department Course and Treatment: Patient is rested comfortably throughout her stay nurse department. Had a prolonged schedule at this time I do not have an explanation for his symptoms. Treatment Plan: Patient will be discharged instructions to follow-up with her primary care physician in 3 to 5 days for another exam. Return to the emergency department for any worsening symptoms. Disposition: To home in improved and stable condition. Impression: 1. Paresthesias right arm, uncertain cause. This note was generated with [email or web address] dictation software. It may contain incorrect words, spelling, and punctuation that were not noted in review of the chart prior to signing ED Disposition - Plan for ED Patient: Instructions: ED PERIPHERAL NEUROPATHY Referrals: Rashaun Narvaez MD [Primary Care Provider] - 3-5 Days
[2019-08-21 01:45] VITALS: BP 107/65; PULSE 72; RESP 20; O2SAT 95
== END 2019-08-21 01:46 | disposition home or self-care (01) ==
LOC: ED 00:24
PROVIDERS: Emergency Provider Emergency Medicine; PCP Family Medicine
DX: R20.2 Paresthesia of skin (principal); M06.9 Rheumatoid arthritis, unspecified; J45.909 Unspecified asthma, uncomplicated; Z72.0 Tobacco use; Z79.52 Long term (current) use of systemic steroids
CPT/HCPCS: 36415; 70450; 80048; 85025; 99283; A4216

== ENCOUNTER 2020-07-14 21:36 | Inpatient (IN) | payer MEDICAID, SELFPAY ==
[2020-07-14 21:37] VITALS: BP 113/84; PULSE 95; RESP 16; TEMP 35.8; O2SAT 100; BMI 25.7
--- NOTE | 2020-07-14 21:46 | EKG12_ITS ---
Test Reason : Blood Pressure : / mmHG Vent. Rate : 077 BPM Atrial Rate : 077 BPM P-R Int : 118 ms QRS Dur : 074 ms QT Int : 380 ms P-R-T Axes : 024 048 034 degrees QTc Int : 430 ms Normal sinus rhythm Normal ECG Confirmed by LUIS BOX, GARRY ([id number]), marketing editor ARISTIDES HIGGINBOTHAM ([id number]) on 07/20/2020 2:15:25 PM Referred By: BB Confirmed By:GARRY SMITH MD
--- NOTE | 2020-07-14 21:47 | ED.DCSUM_ITS ---
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 She she initially states she did not willingly overdose and has no idea what happened, but after everyone else leaves the room, she states she lied and she has a heroin problem and pleads with me to be admitted to detox so that she can straighten her life up. She has also used methamphetamine but not today. She denies having any other addictions. Paramedics responded to a call, and upon finding her she was cyanotic, obtunded, and barely breathing. They administered Narcan 2 mg twice and she woke up, one intranasally and then one intravenously. She now just feels fatigued and has no other specific symptoms. She denies any recent illness or feeling like she injured herself. She states there were acquaintances present at her home when all of this happened, and she was not alone. - Past Medical History (1) Hepatitis Status: Chronic (2) Substance abuse Status: Chronic (3) Kidney stones Status: Chronic (4) Moderate major depression Status: Chronic (5) Post traumatic stress disorder (PTSD) Status: Chronic (6) Seizure disorder Status: Chronic Past Medical History - Allergies and Home Meds Allergies/Adverse Reactions: Allergies ciprofloxacin [From Cipro] Allergy (Verified 07/14/20 21:42) Hives ciprofloxacin HCl [From Cipro] Allergy (Verified 07/14/20 21:42) Hives levetiracetam [From Keppra] Allergy (Verified 07/14/20 21:42) SEIZURES morphine Allergy (Verified 07/14/20 21:42) Shortness of breath ondansetron HCl [From Zofran] Allergy (Verified 07/14/20 21:42) Hives Sulfa (Sulfonamide Antibiotics) Allergy (Verified 07/14/20 21:42) Hives acetaminophen [From [place]] Adverse Reaction (Verified 07/14/20 21:42) STOMACH CRAMPS hydrocodone bitartrate [From [place]] Adverse Reaction (Verified 07/14/20 21:42) STOMACH CRAMPS ketorolac tromethamine [From Toradol] Adverse Reaction (Verified 07/14/20 21:42) Abd cramps/diarrhea metoclopramide HCl [From Reglan] Adverse Reaction (Verified 07/14/20 21:42) TACHY ondansetron [From Zofran] Adverse Reaction (Verified 07/14/20 21:42) Other Primary Care Physician: Missy Narvaez MD [Primary Care Provider] - Surgical History: - - Hysterectomy, tonsillectomy and tubal ligation. Smoking Status: Current every day smoker Alcohol: Rare Drugs: Heroin, - - methamphetamine not infrequently - Family History Maternal Family History: Reports: No pertinent history Paternal Family History: Reports: No pertinent history Review of Systems General: Reports: Malaise. Denies: Chills, Fever, Sweats Eyes: Denies: Visual changes - bilaterally, Diplopia ENT: Denies: Rhinorrhea, Sore throat Cardiovascular: Denies: Chest pain, Palpitations Respiratory: Denies: Dyspnea, Cough, Dyspnea on exertion Gastrointestinal: Denies: Abdominal pain, Nausea, Vomiting, Diarrhea, Melena, Hematochezia Genitourinary: Denies: Dysuria, Hematuria, Frequency Musculoskeletal: Denies: Neck pain, Back pain, Extremity Pain Skin: Denies: Rash, Wounds Neurological: Denies: Headache, Weakness, Numbness Psych: Reports: Depression, Anxiety. Denies: Suicidal thoughts, Suicidal ideations Physical Exam Vital Signs/Narrative: Vital Signs Temp Pulse Resp BP Pulse Ox 07/14/20 21:37 96.5 F L 95 16 113/84 H 100 Inital Vital Signs reviewed: Yes General: Well nourished, Well developed, No Acute Distress Head: Normocephalic, Atraumatic Eyes: Perrl, EOMI ENT: Moist mucous membranes, No rhinorrhea Neck: Supple, Nontender Cardiovascular: Regular rate, Regular rhythm, No murmurs Respiratory: No distress, CTA bilaterally, Chest nontender Abdomen: Soft, Nontender, Nondistended, Normal bowel sounds Back: Nontender, Normal Inspection Extremities: Nontender, No edema Skin: Normal color, No rash, - - Noninfected left AC track missy Neurological: Alert, Oriented x3, Cranial nerves II-XII grossly intact, Normal Strength, Normal Sensation Psychological: Depressed, Tearful Diagnostic/Tx/Re-eval Laboratory Results 07/14/20 07/14/2021 22:05 22:05 22:05 WBC 7.4 RBC 4.94 Hgb 14.5 Hct 44.8 MCV 90.7 MCH 29.4 MCHC 32.4 RDW Std Deviation 39.6 RDW Coeff of [place] 11.9 Plt Count 243 MPV 11.0 Immature Gran % (Auto) 0.300 Neut % (Auto) 58.2 Lymph % (Auto) 29.9 [place] % (Auto) 8.5 Eos % (Auto) 2.0 Baso % (Auto) 1.1 H Absolute Neuts (auto) 4.3 Absolute Lymphs (auto) 2.21 Nucleated RBC % 0 Sodium 138 Potassium 3.3 L Chloride 104 Carbon Dioxide 23.0 Anion Gap 11 BUN 11 Creatinine 1.02 Estim Creat Clear Calc 58.09 Est GFR (MDRD) Af Amer 79 Est GFR (MDRD) Non-Af 65 BUN/Creatinine Ratio 10.8 Glucose 99 Calcium 9.1 Troponin I < 0.015 Ethyl Alcohol 55.0 - Rhythm Strip Rhythm Strip: Sinus Rhythm Rate: 77 Ectopy: None - EKG Initial EKG Interpretation: Sinus Rhythm, No Acute Injury Pattern - normal EKG - Medical Decision Making Patient was observed and had no further lapses in her level of consciousness, was easily arousable, but there was delay in getting urine specimen since she was not able to urinate. She was allowed to drink fluids. She wants admitted for detox, admitting she has a drug problem. She is not suicidal. Discussed with hospitalist. ED Disposition - Plan for ED Patient: Disposition: Acute Care Hospital [facility] Diagnosis: Opiate dependence Referrals: Missy Narvaez MD [Primary Care Provider] -
[2020-07-14 22:14] LABS: Absolute Lymphocyte Count 2.21 X10^3/uL (0.83-4.51); Absolute Neutrophil Count 4.3 X10^3/uL (2.0-7.7); Basophil# 0.08 X10^3/uL; Basophil% 1.1 % (0-1); Eosinophil# 0.15 X10^3/uL; Hematocrit 44.8 % (37-47); Hemoglobin 14.5 g/dL (12.0-15.0); Lymphocyte # 2.21 X10^3/ul (4.0); Lymphocyte % 29.9 % (19-41); Mean Corp Hgb Conc 32.4 g/dL (32-36); Mean Corpuscular Hgb 29.4 pg (27.0-32.0); Mean Corpuscular Volume 90.7 fL (81-99); Monocyte# 0.63 X10^3/uL; Monocyte% 8.5 % (0-10); NRBC Flagged by Analyzer 0 % (0-5); Neutrophil # 4.29 X10^3/uL (2.7-7.7); Neutrophil % 58.2 % (47-70); Platelet Count 243 K/mm3 (150-450); RBC Distribution Width CV 11.9 % (11.6-14.6); RBC Distribution Width SD 39.6 fl (35.1-43.9); Red Blood Count 4.94 M/mm3 (4.2-5.4); White Blood Count 7.4 K/mm3 (4.4-11.0)
[2020-07-14 22:36] LABS: Anion Gap 11 (5-15); BUN 11 mg/dL (7-18); BUN/Creat Ratio 10.8 RATIO (10-20); Calcium,Total 9.1 mg/dL (8.5-10.1); Chloride 104 mmol/L (98-107); Creatinine, Serum 1.02 mg/dL (0.55-1.02); EST Glomerular Filtration Rate 65 mL/min (>60); Est Glom Filt Rate - Afr Amer 79 mL/min (>60); Estimated Creatinine Clearance 58.09 ml/min; Glucose 99 mg/dL (74-106); Potassium 3.3 mmol/L (3.5-5.1); Sodium Level 138 mmol/L (136-145)
[2020-07-14 22:50] VITALS: BP 101/67; PULSE 76; RESP 16; O2SAT 97
[2020-07-14 23:31] VITALS: BP 91/63; PULSE 58; RESP 12; O2SAT 98
--- NOTE | 2020-07-14 23:45 | HP.PCM_ITS ---
Problem List (1) Heroin abuse Status: Acute (2) Amphetamine abuse Status: Acute (3) Alcohol abuse Status: Acute (4) Substance abuse Status: Chronic (5) Hepatitis Status: Chronic (6) Opiate dependence Status: Acute (7) Kidney stones Status: Chronic (8) Seizure disorder Status: Chronic (9) Tobacco dependence syndrome Status: Chronic (10) Post traumatic stress disorder (PTSD) Status: Chronic (11) Moderate major depression Status: Chronic History of Present Illness Date of Admission: 07/15/20 Chief Complaint: Heroin overdose The patient is a 35 year old F admitted for significant history of anxiety disorder; major depression; PTSD; borderline personality disorder who presents emergency department with accidental heroin overdose. Following overdose patient became unresponsive. Paramedics gave patient intranasal nasal Narcan an d intravenous Narcan after which patient became responsive. Patient reports using about half a gram of heroin per day. She is using heroin. She also smoke methamphetamine. Further she drinks about 12 packs of beer per day. At times she drink whiskey. Also she smokes marijuana and cigarettes. Past Medical History Past Medical History (Chronic Problems): Chronic Problems Substance abuse (Chronic) Hepatitis (Chronic) Kidney stones (Chronic) Seizure disorder (Chronic) Tobacco dependence syndrome (Chronic) Post traumatic stress disorder (PTSD) (Chronic) Moderate major depression (Chronic) Allergies ciprofloxacin [From Cipro] Allergy (Verified 07/14/20 21:42) Hives ciprofloxacin HCl [From Cipro] Allergy (Verified 07/14/20 21:42) Hives levetiracetam [From Keppra] Allergy (Verified 07/14/20 21:42) SEIZURES morphine Allergy (Verified 07/14/20 21:42) Shortness of breath ondansetron HCl [From Zofran] Allergy (Verified 07/14/20 21:42) Hives Sulfa (Sulfonamide Antibiotics) Allergy (Verified 07/14/20 21:42) Hives acetaminophen [From [place]] Adverse Reaction (Verified 07/14/20 21:42) STOMACH CRAMPS hydrocodone bitartrate [From [place]] Adverse Reaction (Verified 07/14/20 21:42) STOMACH CRAMPS ketorolac tromethamine [From Toradol] Adverse Reaction (Verified 07/14/20 21:42) Abd cramps/diarrhea metoclopramide HCl [From Reglan] Adverse Reaction (Verified 07/14/20 21:42) TACHY ondansetron [From Zofran] Adverse Reaction (Verified 07/14/20 21:42) Other Home Medications: Ambulatory Orders Medication Instructions Recorded NK 07/14/20 Surgical History: - - Hysterectomy, tonsillectomy and tubal ligation. 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 Denies: Chills, Fever, Weight Change HEENT: Denies: Head Aches, Sinus Congestion, Sinus Drainage Cardiovascular: Denies: Chest Pain, Palpitations Respiratory: Denies: Cough, Shortness of breath at rest, Sputum production Gastrointestinal: Denies: Abdominal Pain, Nausea, Vomiting Genitourinary: Denies: Dysuria Musculoskeletal: Denies: Joint Pain, Joint Tenderness Skin: Denies: Rash, Wounds Neurological: Denies: Numbness, Tingling, Focal weakness Psychiatric: Denies: Homicidal Ideations, Suicidal Ideations Hematologic/ Lymphatic: Denies: Easy Bruising, Easy Bleeding VTE Information - Inpt Only VTE Present on Admission: No VTE Mechan Device Prophylaxis: None VTE Pharm Prophylaxis ordered?: No Reason prophylaxis not ordered:: Treatment Not Indicated - Low risk encourage ambulate Patient Problems: Active and Suspected Problems Heroin abuse (Acute) Amphetamine abuse (Acute) Alcohol abuse (Acute) Opiate dependence (Acute) - Physical Exam Vitals/I&O's: Vital Signs Temp Pulse Resp BP Pulse Ox 96.5 F L 58 L 12 91/63 98 07/14/20 21:37 07/14/20 23:31 07/14/20 23:31 07/14/20 23:31 07/14/20 23:31 Oxygen Delivery Method Room Air Weight: 61.7 kg Body Mass Index (BMI) 25.7 General: Oriented x3, Cooperative, Lethargic, - HEENT: Atraumatic, PERRLA, EOMI, Normocephalic Oral: - - Poor dentition Neck: Supple, No JVD, Negative Carotid Bruits Lungs: Clear to auscultation, Normal air movement Cardiovascular: Regular rate, No murmurs Abdomen: Bowel Sounds Present, Soft, Non Tender Extremities: No edema, Capillary Refill Less than 3 Seconds Skin: No rashes, No breakdown Musculoskeletal: No Tenderness to Palpation of Joints or Extremities Neurological: Cranial nerves II-XII grossly intact Psych/Mental Status: Normal Affect, Appropriate Laboratory Results 07/14/20 22:05: WBC 7.4, RBC 4.94, Hgb 14.5, Hct 44.8, MCV 90.7, MCH 29.4, MCHC 32.4, RDW Std Deviation 39.6, RDW Coeff of [place] 11.9, Plt Count 243, MPV 11.0, Immature Gran % (Auto) 0.300, Neut % (Auto) 58.2, Lymph % (Auto) 29.9, [place] % (Auto) 8.5, Eos % (Auto) 2.0, Baso % (Auto) 1.1 H, Absolute Neuts (auto) 4.3, Absolute Lymphs (auto) 2.21, Nucleated RBC % 0 07/14/20 22:05: Sodium 138, Potassium 3.3 L, Chloride 104, Carbon Dioxide 23.0, Anion Gap 11, BUN 11, Creatinine 1.02, Estim Creat Clear Calc 58.09, Est GFR (MDRD) Af Amer 79, Est GFR (MDRD) Non-Af 65, BUN/Creatinine Ratio 10.8, Glucose 99, Calcium 9.1, Troponin I < 0.015 07/14/20 22:05: Ethyl Alcohol 55.0 Assessment/Plan All Active Problems Heroin abuse (Acute) Amphetamine abuse (Acute) Alcohol abuse (Acute) Opiate dependence (Acute) The patient is a 35 year old F with a significant history of polysubstance ab use; tobacco abuse and alcoholism; and who presents to emergency department with drug overdose and now is seeking detoxification. Desire for opioid detoxification and alcohol detoxification Patient will be started on Subutex; phenobarbital and other adjunctive medications: Thiamine; folic acid; gabapentin as needed; dicyclomine as needed; Vistaril as needed; methocarbamol as needed; clonidine as needed; Imodium as needed; trazodone as needed and Zofran as needed. Monitor COWS; CIWA and CINA score. Will wait a couple of hours before stating detoxification medication as patient was recently overdosed. Heroin overdose Counselled Tobacco abuse Counseled Nicotine patch prescribed. DVT prophylaxis Low risk Encourage to ambulate Inpatient E&M: 64257 Init Hosp L3
[2020-07-14 23:56] VITALS: BP 91/60; PULSE 71; RESP 16; TEMP 36.7; O2SAT 98
[2020-07-15] VITALS (9 sets, daily range): BP systolic 90–114; BP diastolic 59–74; PULSE 59–78; RESP 14–18; TEMP 36.6–36.8; O2SAT 94–100; BMI 23.7
--- NOTE | 2020-07-15 00:45 | ED.RN ---
IV removed per . States pt does not need an IV for admission.
--- NOTE | 2020-07-15 02:32 | ED.RN ---
180 NOTIFIED OF THE RAMP ADMIT
[2020-07-15] MEDS: Gabapentin 300 MG Capsule PO (02:53)
[2020-07-15] MEDS: proMETHazine 25 MG/ML Syringe 6.25 MG IM (03:25)
[2020-07-15] MEDS: Buprenorphine HCl 2 MG TAB.SUBL SL ×3 (04:26→20:34)
[2020-07-15] MEDS: Phenobarbital 32.4 MG Tablet 64.8 MG PO ×3 (05:31→19:36)
[2020-07-15] MEDS: Dicyclomine 10 MG Capsule 20 MG PO (05:31)
--- NOTE | 2020-07-15 07:39 | PCM.PN.HOSP ---
Patient Problems: Active and Suspected Problems Heroin abuse (Acute) Amphetamine abuse (Acute) Alcohol abuse (Acute) Opiate dependence (Acute) Reason for Visit: Follow-up on acute opioid withdrawal. Subjective: Patient was seen and examined. Complains of nausea, received IM Phenergan. No other acute events overnight. Objective: Physical exam: General: Oriented x3, Cooperative, Lethargic HEENT: Atraumatic, PERRLA, EOMI, Normocephalic Oral: - - Poor dentition Neck: Supple, No JVD, Negative Carotid Bruits Lungs: Clear to auscultation, Normal air movement Cardiovascular: Regular rate, No murmurs Abdomen: Bowel Sounds Present, Soft, Non Tender Extremities: No edema, Capillary Refill Less than 3 Seconds Skin: No rashes, No breakdown Musculoskeletal: No Tenderness to Palpation of Joints or Extremities Neurological: Cranial nerves II-XII grossly intact Psych/Mental Status: Normal Affect, Appropriate Vitals/I&O's: Vital Signs Temp Pulse Resp BP Pulse Ox 98.1 F 68 16 91/59 L 99 07/15/20 05:26 07/15/20 05:26 07/15/20 05:26 07/15/20 05:26 07/15/20 05:26 Oxygen Delivery Method Room Air Weight: 56.9 kg Body Mass Index (BMI) 23.7 Laboratory Results 07/14/20 22:05: WBC 7.4, RBC 4.94, Hgb 14.5, Hct 44.8, MCV 90.7, MCH 29.4, MCHC 32.4, RDW Std Deviation 39.6, RDW Coeff of [place] 11.9, Plt Count 243, MPV 11.0, Immature Gran % (Auto) 0.300, Neut % (Auto) 58.2, Lymph % (Auto) 29.9, [place] % (Auto) 8.5, Eos % (Auto) 2.0, Baso % (Auto) 1.1 H, Absolute Neuts (auto) 4.3, Absolute Lymphs (auto) 2.21, Nucleated RBC % 0 07/14/20 22:05: Sodium 138, Potassium 3.3 L, Chloride 104, Carbon Dioxide 23.0, Anion Gap 11, BUN 11, Creatinine 1.02, Estim Creat Clear Calc 58.09, Est GFR (MDRD) Af Amer 79, Est GFR (MDRD) Non-Af 65, BUN/Creatinine Ratio 10.8, Glucose 99, Calcium 9.1, Troponin I < 0.015 07/14/20 22:05: Ethyl Alcohol 55.0 Current Medications Buprenorphine HCl (Buprenorphine Hcl 2 Mg Tab.Subl) 4 mg SL Q8H MELINA; Taper Stop: 07/18/20 02:59 Last Admin: 07/15/20 04:26 Dose: 4 mg Documented by: Clonidine (Clonidine Hcl 0.1 Mg Tablet) 0.1 mg PO Q8H PRN PRN PRN Reason: RESTLESSNESS Dicyclomine HCl (Dicyclomine 10 Mg Capsule) 20 mg PO Q6H PRN PRN PRN Reason: Abdominal Discomfort Last Admin: 07/15/20 05:31 Dose: 20 mg Documented by: Folic Acid (Folic Acid 1 Mg Tablet) 1 mg PO DAILY@0800 [facility] Gabapentin (Gabapentin 300 Mg Capsule) 300 mg PO Q8H PRN PRN PRN Reason: moderate to severe anxiety Last Admin: 07/15/20 02:53 Dose: 300 mg Documented by: Hydroxyzine Pamoate (Hydroxyzine Nathaly 25 Mg Capsule) 50 mg PO Q6H PRN PRN PRN Reason: mild anxiety Loperamide HCl (Loperamide 2 Mg Capsule) 2 mg PO Q4H PRN PRN PRN Reason: LOOSE STOOLS Methocarbamol (Methocarbamol 750 Mg Tablet) 1,500 mg PO Q6H PRN PRN PRN Reason: MUSCLE SPASM Nicotine (Nicotine 14 Mg Patch) 14 mg TD DAILY [facility] Last Admin: 07/15/20 01:46 Dose: 14 mg Documented by: Phenobarbital (Phenobarbital 32.4 Mg Tablet) 97.2 mg PO Q4H [facility]; Taper Stop: 07/19/20 13:59 Last Admin: 07/15/20 05:31 Dose: 97.2 mg Documented by: Prochlorperazine Edisylate (Prochlorperazine 10 Mg/2 Ml Vial) 5 mg IV Q6H PRN PRN PRN Reason: NAUSEA/VOMITING Thiamine HCl ([facility] Hydrochloride 100 Mg Tablet) [facility] Trazodone HCl (Trazodone 100 Mg Tablet) 100 mg PO QHS PRN PRN PRN Reason: INSOMNIA STROKE Vital Signs/Narrative: Vital Signs Temp Pulse Resp BP Pulse Ox 07/15/20 05:26 98.1 F 68 16 91/59 L 99 Medical Necessity - Tobacco Use Smoking Status: Current every day smoker Tobacco Use: Cigarettes Assessment/Plan All Active Problems Heroin abuse (Acute) Amphetamine abuse (Acute) Alcohol abuse (Acute) Opiate dependence (Acute) 1. Acute opioid withdrawal recent in a patient with heroin overdose, status post Narcan treatment prior to admission Continue to monitor for withdrawal using the buprenorphine withdrawal protocol 2. Chronic alcohol use disorder, continue on the phenobarbital withdrawal protocol 3. Nicotine dependence, on replacement 4. Hypokalemia, resolved 5. DVT prophylaxis?low risk, early ambulation recommended Inpatient E&M: 39650 Subs Hosp L2
[2020-07-15] MEDS: Methocarbamol 750 MG Tablet 1500 MG PO (09:07)
[2020-07-15] MEDS: cloNIDine HCl 0.1 MG Tablet PO (09:07)
[2020-07-15 09:23] LABS: Anion Gap 8 (5-15); BUN 11 mg/dL (7-18); BUN/Creat Ratio 14.1 RATIO (10-20); Chloride 102 mmol/L (98-107); Creatinine, Serum 0.78 mg/dL (0.55-1.02); EST Glomerular Filtration Rate 89 mL/min (>60); Est Glom Filt Rate - Afr Amer 108 mL/min (>60); Estimated Creatinine Clearance 75.96 ml/min; Glucose 98 mg/dL (74-106); Potassium 3.8 mmol/L (3.5-5.1); Sodium Level 138 mmol/L (136-145)
[2020-07-15] MEDS: proMETHazine 25 MG/ML Syringe 12.5 MG IM (09:39)
[2020-07-15] MEDS: LORazepam 1 MG Tablet 2 MG PO ×2 (09:39→20:34)
[2020-07-15] MEDS: Thiamine Hydrochloride 100 MG Tablet PO (09:46)
[2020-07-15] MEDS: Folic Acid 1 MG Tablet PO (09:46)
--- NOTE | 2020-07-15 09:57 | ADDICTION ---
This adjusto writer operator met with PT in her room to administer MSE, ASAM, AUDIT and DUDIT assessments and to plan for discharge. PT presented with labile mood and agitated affect, was tearful throughout meeting and was mildly verbally aggressive. She was focused on staff not treating her well and ignoring her needs. This adjusto writer operator attempted to redirect patient multiple times and was able to complete assessments and d/c plan. PT requested to go to rehab in [place] through a program housed in [place], [place]. This adjusto writer operator contacted Terrie Neal, who worked with this program, who stated that the program has been discontinued. This adjusto writer operator will attempt to identify other resources for PT prior to d/c. PT identified that transportation to [place] will be a barrier for her. This adjusto writer operator is not aware of transportation assistance available from [place] to [place]. All assessments completed, faxed to [facility] and placed in PT's chart.
--- NOTE | 2020-07-15 10:00 | NURSING ---
Solange from 180 asked this nurse to room because patient was feeling anxious, crying, restless in bed. She also was c/o feeling like it sounded like she was in a tunnel and had tactile disturbances on her extermities. This RN gave catapres, methocarbamol and rec'd a x1 order from phenergan from Dr. Pond. Patient's CIWA was a 19. Dr. Pond states she would add Ativan as well. will cont. to monitor.
--- NOTE | 2020-07-15 10:07 | ADDICTION ---
This food writer identified available agencies in [place], [place], per PT's request. She reports that she wants to go to [place], [place] upon d/c from [facility] and has the financial means to obtain a plane ticket. This food writer provided PT with the list of agencies in [place], [place].
--- NOTE | 2020-07-15 13:33 | NURSING ---
CIWA/CINA complete. patient is lethargic, not able to stay awake during assessment. She is able to tell me she is at [facility]. VSS (see intervention). Dr. Pond notified and 1400 dose phenobarbital held. continuous pulse ox placed as a nursing measure.
[2020-07-15] MEDS: 0.9% Normal Saline 1,000 ML 125 ML IV (15:43)
--- NOTE | 2020-07-15 19:40 | NURSING ---
initially when rounding with cristobal mares pt falling asleep with her face in her cake few minutes later pt awakened and set off bed exit getting in freezer and frig in hallway outside room offered to get food for pt as pts arent permitted in kitchen area at this time (signs clearly stating this on all areas of kitchen) pt returned to her room screaming, yelling out, swearing at staff states staff stole her food demanding ativan and her other meds at this time. cristobal mares and oncoming rn trying to provided reassurance, redirection pt kept yelling, screaming while eating her food. charge authorizer notified. cristobal mares addressing meds. resource officer called to speak with pt regarding her disruptive behavior. will monitor
--- NOTE | 2020-07-15 19:48 | NURSING ---
Lotus RN & Veronica RN spoke to this nurse in regard to the behavior of this pt. Pt is yelling at staff and demanding meds but then refusing meds when offered until she has a chance to eat. Pt has been lethargic with low blood pressures today and yet wants medicated. Lotus, Resource Officer, contacted to come and talk to pt. We felt that the pt was going to be disruptive to other pts on the floor unless we had someone talk to her and try to decide if pt should remain here.
--- NOTE | 2020-07-15 20:00 | NURSING ---
resource officer in room with pt, information technology security manager outside room. pt refused to take her buprenorphrine until after she eats, did take her phenobarb. dayshiemani rn got vital signs. continues to talk with resource officer
--- NOTE | 2020-07-15 20:41 | NURSING ---
resource officer, chargeback specialist and this primary rn for pt spoke together about appropriate behavior (ie. no yelling, screaming etc...) as a pt in ramp, using her call light to ask for things that she needs. pt took her hs meds. staff left room. door closed for pt to rest
[2020-07-16] MEDS: Buprenorphine HCl 2 MG TAB.SUBL SL ×3 (02:22→18:51)
[2020-07-16] MEDS: Phenobarbital 32.4 MG Tablet 64.8 MG PO ×6 (02:22→21:57)
[2020-07-16] MEDS: LORazepam 1 MG Tablet 2 MG PO (02:22)
[2020-07-16 02:33] VITALS: BP 101/60; PULSE 59; RESP 15; TEMP 36.4; O2SAT 100
--- NOTE | 2020-07-16 06:18 | NURSING ---
rn in to medicate pt was asleep and dropped pie on her self, the bed, the floor. rn assisted to bathroom, loin trimmer gave bath, rn changed linen. unsteady on feet this am, bed exit on.
--- NOTE | 2020-07-16 09:01 | ADDICTION ---
This financial underwriter attempted to meet with patient today to facilitate coordination with treatment agency in [place], [place]. PT was asleep and was not responsive to verbal queuing. This financial underwriter will attempt to meet with PT at next visit on 07/17/20.
[2020-07-16 09:04] VITALS: O2SAT 100
[2020-07-16 09:35] VITALS: BP 98/51; PULSE 66; RESP 14; TEMP 36.6; O2SAT 99
--- NOTE | 2020-07-16 09:38 | NURSING ---
pt arugmentative with directions/updates on POC. pt drowsy and closes eyes rests when not disturbed. At times pt refuses to answer questions when asked. meal tray set up for pt.
[2020-07-16] MEDS: Folic Acid 1 MG Tablet PO (09:49)
[2020-07-16] MEDS: Thiamine Hydrochloride 100 MG Tablet PO (09:49)
[2020-07-16 14:06] VITALS: BP 99/67; PULSE 74; RESP 14; TEMP 37.1; O2SAT 99
--- NOTE | 2020-07-16 14:06 | PN_ITS ---
Patient Problems: Active and Suspected Problems Heroin abuse (Acute) Amphetamine abuse (Acute) Alcohol abuse (Acute) Opiate dependence (Acute) Reason for Visit: Follow-up on acute opioid withdrawal. Subjective: Patient was seen and examined. She is very lethargic. Her Ativan was held. Objective: Physical exam: General: Oriented x3, Cooperative, Lethargic HEENT: Atraumatic, PERRLA, EOMI, Normocephalic Oral: - - Poor dentition Neck: Supple, No JVD, Negative Carotid Bruits Lungs: Clear to auscultation, Normal air movement Cardiovascular: Regular rate, No murmurs Abdomen: Bowel Sounds Present, Soft, Non Tender Extremities: No edema, Capillary Refill Less than 3 Seconds Skin: No rashes, No breakdown Musculoskeletal: No Tenderness to Palpation of Joints or Extremities Neurological: Cranial nerves II-XII grossly intact Psych/Mental Status: Normal Affect, Appropriate Vitals/I&O's: Vital Signs Temp Pulse Resp BP Pulse Ox 97.9 F 66 14 98/51 L 99 07/16/20 09:35 07/16/20 09:35 07/16/20 09:35 07/16/20 09:35 07/16/20 09:35 Oxygen Delivery Method Room Air Weight: 56.9 kg Body Mass Index (BMI) 23.7 Intake and Output for Last 24 Hours 07/14/20 07/15/20 07/16/20 23:59 23:59 23:59 Intake Total 442.08 / 442.08 Balance 442.08 / 442.08 Current Medications Buprenorphine HCl (Buprenorphine Hcl 2 Mg Tab.Subl) 2 mg SL Q8H MELINA; Taper Stop: 07/18/20 02:59 Last Admin: 07/16/20 10:43 Dose: 2 mg Documented by: Clonidine (Clonidine Hcl 0.1 Mg Tablet) 0.1 mg PO Q8H PRN PRN PRN Reason: RESTLESSNESS Last Admin: 07/15/20 09:07 Dose: 0.1 mg Documented by: Dicyclomine HCl (Dicyclomine 10 Mg Capsule) 20 mg PO Q6H PRN PRN PRN Reason: Abdominal Discomfort Last Admin: 07/15/20 05:31 Dose: 20 mg Documented by: Folic Acid (Folic Acid 1 Mg Tablet) 1 mg PO DAILY@0800 MELINA Last Admin: 07/16/20 09:49 Dose: 1 mg Documented by: Gabapentin (Gabapentin 300 Mg Capsule) 300 mg PO Q8H PRN PRN PRN Reason: moderate to severe anxiety Last Admin: 07/15/20 02:53 Dose: 300 mg Documented by: Hydroxyzine Pamoate (Hydroxyzine Nathaly 25 Mg Capsule) 50 mg PO Q6H PRN PRN PRN Reason: mild anxiety Loperamide HCl (Loperamide 2 Mg Capsule) 2 mg PO Q4H PRN PRN PRN Reason: LOOSE STOOLS Methocarbamol (Methocarbamol 750 Mg Tablet) 1,500 mg PO Q6H PRN PRN PRN Reason: MUSCLE SPASM Last Admin: 07/15/20 09:07 Dose: 1,500 mg Documented by: Nicotine (Nicotine 14 Mg Patch) 14 mg TD DAILY [facility] Last Admin: 07/16/20 09:48 Dose: 14 mg Documented by: Phenobarbital (Phenobarbital 32.4 Mg Tablet) 64.8 mg PO Q4H MELINA; Taper Stop: 07/19/20 13:59 Last Admin: 07/16/20 09:49 Dose: 97.2 mg Documented by: Thiamine HCl (Thiamine Hydrochloride 100 Mg Tablet) 100 mg PO [facility]ILY[facility] Last Admin: 07/16/20 09:49 Dose: 100 mg Documented by: Trazodone HCl (Trazodone 100 Mg Tablet) 100 mg PO QHS PRN PRN PRN Reason: INSOMNIA Medical Necessity - Tobacco Use Smoking Status: Current every day smoker Tobacco Use: Cigarettes Assessment/Plan All Active Problems Heroin abuse (Acute) Amphetamine abuse (Acute) Alcohol abuse (Acute) Opiate dependence (Acute) 1. Acute opioid withdrawal recent in a patient with heroin overdose, status post Narcan treatment prior to admission Patient has increasing lethargy, will continue to monitor for withdrawal Continue buprenorphine withdrawal protocol 2. Chronic alcohol use disorder, improved Continue on the phenobarbital withdrawal protocol 3. Nicotine dependence, on replacement 4. Hypokalemia, resolved 5. DVT prophylaxis?low risk, early ambulation recommended Inpatient E&M: 31071 Subs Hosp L2
[2020-07-16] MEDS: hydrOXYzine PAM 25 MG Capsule 50 MG PO (14:11)
[2020-07-16] MEDS: Methocarbamol 750 MG Tablet 1500 MG PO (14:11)
[2020-07-16 22:00] VITALS: BP 113/66; PULSE 73; RESP 16; TEMP 36.7; O2SAT 97
[2020-07-17] MEDS: Phenobarbital 32.4 MG Tablet 64.8 MG PO ×2 (02:14→05:51)
[2020-07-17] MEDS: Buprenorphine HCl 2 MG TAB.SUBL SL (03:08)
[2020-07-17 03:12] VITALS: BP 98/53; PULSE 71; RESP 16; TEMP 36.4; O2SAT 94
[2020-07-17 07:26] VITALS: O2SAT 95
[2020-07-17 08:00] VITALS: BP 79/50; PULSE 74; RESP 16; TEMP 36.8; O2SAT 94
[2020-07-17] MEDS: Thiamine Hydrochloride 100 MG Tablet PO (08:09)
[2020-07-17] MEDS: Folic Acid 1 MG Tablet PO (08:10)
--- NOTE | 2020-07-17 10:55 | ADDICTION ---
This life underwriter attempted to finalize d/c plans for PT. PT was verbally aggressive, was yelling and berating [facility] staff and was unwilling to interact appropriately with this life underwriter. PT continues to want to go to [place] for treatment, however, does not have transportation to the airport. She stated that this life underwriter needs to do your job and take me. This life underwriter informed PT that it is not my job to provide transportation to anywhere other than directly to the [facility] office. PT stated to get the f out then. You're a worthless piece of sh*t like the rest of them. This life underwriter attempted to assist PT in identifying resources to assist with transportation, PT refused.
--- NOTE | 2020-07-17 12:59 | DCINST_ITS ---
- Discharge Diagnoses Current Active Problems: Current Active and Chronic Problems Heroin abuse (Acute) Amphetamine abuse (Acute) Alcohol abuse (Acute) Substance abuse (Chronic) Hepatitis (Chronic) Opiate dependence (Acute) Kidney stones (Chronic) Seizure disorder (Chronic) Tobacco dependence syndrome (Chronic) Post traumatic stress disorder (PTSD) (Chronic) Moderate major depression (Chronic) Reason(s) for Visit for Discharge Instructions: Patient refusing treatment options for addiction medicine. You will use the following diet at home:: No restrictions Your food should be the consistency of: Regular Your liquids should be the consistency of: Regular/Thin Discharge Activity: Return to Normal Activity Return to work on:: 07/18/20 May shower in (days): 1 May resume sexual activity in: No Restrictions Weight Bearing Status: Weight bearing as tolerated Allergies/Adverse Reactions: Allergies ciprofloxacin [From Cipro] Allergy (Verified 07/14/20 21:42) Hives ciprofloxacin HCl [From Cipro] Allergy (Verified 07/14/20 21:42) Hives levetiracetam [From Keppra] Allergy (Verified 07/14/20 21:42) SEIZURES morphine Allergy (Verified 07/14/20 21:42) Shortness of breath ondansetron HCl [From Zofran] Allergy (Verified 07/14/20 21:42) Hives Sulfa (Sulfonamide Antibiotics) Allergy (Verified 07/14/20 21:42) Hives acetaminophen [From [place]] Adverse Reaction (Verified 07/14/20 21:42) STOMACH CRAMPS hydrocodone bitartrate [From [place]] Adverse Reaction (Verified 07/14/20 21:42) STOMACH CRAMPS ketorolac tromethamine [From Toradol] Adverse Reaction (Verified 07/14/20 21:42) Abd cramps/diarrhea metoclopramide HCl [From Reglan] Adverse Reaction (Verified 07/14/20 21:42) TACHY ondansetron [From Zofran] Adverse Reaction (Verified 07/14/20 21:42) Other Medications to take at Discharge NK 07/14/20 Primary Care Physician: Rashaun Narvaez MD [Primary Care Provider] - Please follow up with your Primary Care Physician in: Within the next week. Test Results: Test results from this visit will be discussed in further detail at your follow- up appointment, if applicable. Proposed Discharge Date: 07/17/20
--- NOTE | 2020-07-17 13:05 | DS.PCM_ITS ---
<Sharif Knowles - Last Filed: 07/17/20 13:05> Discharge Date and Diagnosis - Problem List Patient Problems: Active and Suspected Problems Heroin abuse (Acute) Amphetamine abuse (Acute) Alcohol abuse (Acute) Opiate dependence (Acute) Date of Admission: 07/15/20 Date of Discharge: 07/17/20 - Primary Discharge Diagnosis Acute Problems: Active Problems Heroin abuse (Acute) Amphetamine abuse (Acute) Alcohol abuse (Acute) Opiate dependence (Acute) - Secondary Discharge Diagnosis Chronic Problems: Chronic Problems Substance abuse (Chronic) Hepatitis (Chronic) Kidney stones (Chronic) Seizure disorder (Chronic) Tobacco dependence syndrome (Chronic) Post traumatic stress disorder (PTSD) (Chronic) Moderate major depression (Chronic) Hospital Course and Treatment CARITO BRIGHT Female : 1985 MedRec# [id number] 07/17/20 10:55 - Addiction Medicine by Eda Farrar Num: [id number] : 1985 Patient Age: 35 This fiction and nonfiction prose writer attempted to finalize d/c plans for PT. PT was verbally aggressive, was yelling and berating [facility] staff and was unwilling to interact appropriately with this fiction and nonfiction prose writer. PT continues to want to go to [place] for treatment, however, does not have transportation to the airport. She stated that this fiction and nonfiction prose writer needs to do your job and take me. This fiction and nonfiction prose writer informed PT that it is not my job to provide transportation to anywhere other than directly to the [facility] office. PT stated to get the f out then. You're a worthless piece of sh*t like the rest of them. This fiction and nonfiction prose writer attempted to assist PT in identifying resources to assist with transportation, PT refused. Initialized on 07/17/20 10:55 - END OF NOTE Operations: None Procedures: None Summary of Care Provided: Heroin abuse (Acute) Amphetamine abuse (Acute) Alcohol abuse (Acute) Opiate dependence (Acute) Patient is a 35-year-old female who was admitted to the hospital on 07/15/2020 with a chief complaint of acute opioid and alcohol withdrawal. Patient was treated per CIWA and CINA protocol. Patient is being discharged from hospital due to refusal of treatment options from addiction medicine. 1) Acute opioid withdrawal. Assessment - Patient somnolent - Patient eating well - Patient hostile, uncooperative and unwilling to participate in treatment options from addiction medicine Plan - Discharge from hospital 2) Chronic alcohol use disorder Assessment - Patient somnolent - Patient eating well - Not seizing or experiencing a loss of consciousness. - Patient hostile, uncooperative and unwilling to participate in treatment options from addiction medicine Plan - Discharge from hospital 3) Nicotine dependence Assessment - Patient agitated Plan - Replacement will be discontinued on discharge. 4) Hypokalemia - Resolved 5. DVT prophylaxis? low risk Patient seen by Sharif Knowles PA-C, under the supervision of Dr. Pond. Patient Problems: Active and Suspected Problems Heroin abuse (Acute) Amphetamine abuse (Acute) Alcohol abuse (Acute) Opiate dependence (Acute) - Physical Exam Vitals/I&O's: Vital Signs Temp Pulse Resp BP Pulse Ox 98.2 F 74 16 79/50 L 94 07/17/20 08:00 07/17/20 08:00 07/17/20 08:00 07/17/20 08:00 07/17/20 08:00 Oxygen Delivery Method Room Air Weight: 125 lb 7.088 oz Body Mass Index (BMI) 23.7 Intake and Output for Last 24 Hours 07/15/20 07/16/20 07/17/20 23:59 23:59 23:59 Intake Total 442.08 / 442.08 Balance 442.08 / 442.08 General: Alert, Oriented x3, Lethargic, Non-Cooperative HEENT: Atraumatic, PERRLA, EOMI, Normocephalic Neck: Supple, No JVD, Negative Carotid Bruits Lungs: Clear to auscultation, Normal air movement Cardiovascular: Regular rate, No murmurs Abdomen: Bowel Sounds Present, Soft, Non Tender Extremities: No edema, Capillary Refill Less than 3 Seconds Skin: No rashes, No breakdown Musculoskeletal: No Tenderness to Palpation of Joints or Extremities Neurological: Cranial nerves II-XII grossly intact Psych/Mental Status: Agitated, Anxious, Impulsive, Irrational Behavior Current Medications Acetaminophen (Acetaminophen 325 Mg Tablet) 650 mg PO Q6H PRN PRN PRN Reason: HEADACHE Dicyclomine HCl (Dicyclomine 10 Mg Capsule) 20 mg PO Q6H PRN PRN PRN Reason: Abdominal Discomfort Last Admin: 07/15/20 05:31 Dose: 20 mg Documented by: Folic Acid (Folic Acid 1 Mg Tablet) 1 mg PO DAILY@0800 [facility] Last Admin: 07/17/20 08:10 Dose: 1 mg Documented by: Gabapentin (Gabapentin 300 Mg Capsule) 300 mg PO Q8H PRN PRN PRN Reason: moderate to severe anxiety Last Admin: 07/15/20 02:53 Dose: 300 mg Documented by: Ibuprofen (Ibuprofen 400 Mg Tablet) 400 mg PO Q6H PRN PRN PRN Reason: Pain Score 1-10 Loperamide HCl (Loperamide 2 Mg Capsule) 2 mg PO Q4H PRN PRN PRN Reason: LOOSE STOOLS Methocarbamol (Methocarbamol 750 Mg Tablet) 1,500 mg PO Q6H PRN PRN PRN Reason: MUSCLE SPASM Last Admin: 07/16/20 14:11 Dose: 1,500 mg Documented by: Nicotine (Nicotine 14 Mg Patch) 14 mg TD DAILY [facility] Last Admin: 07/17/20 10:21 Dose: 14 mg Documented by: Phenobarbital (Phenobarbital 32.4 Mg Tablet) 64.8 mg PO Q4H [facility]; Taper Stop: 07/19/20 13:59 Last Admin: 07/17/20 10:23 Dose: Not Given Documented by: Thiamine HCl (Thiamine Hydrochloride 100 Mg Tablet) 100 mg PO DAILYCM [facility] Last Admin: 07/17/20 08:09 Dose: 100 mg Documented by: Discharge Activity: Return to Normal Activity Return to work on:: 07/18/20September shower in (days): 1 May resume sexual activity in: No Restrictions Weight Bearing Status: Weight bearing as tolerated Home Medications: Medications to take at Discharge NK 07/14/20 Primary Care Physician: Rashaun Narvaez MD [Primary Care Provider] - Please follow up with your Primary Care Physician in: Within the next week. Medical Necessity - Tobacco Use Smoking Status: Current every day smoker Tobacco Use: Cigarettes Meaningful Use Info Meaningful Use Diagnoses (Choose all that apply): None applicable <Guerline Pond - Last Filed: 07/17/20 13:59> Discharge Date and Diagnosis - Primary Discharge Diagnosis Acute Problems: Active Problems Heroin abuse (Acute) Amphetamine abuse (Acute) Alcohol abuse (Acute) Opiate dependence (Acute) - Secondary Discharge Diagnosis Chronic Problems: Chronic Problems Substance abuse (Chronic) Hepatitis (Chronic) Kidney stones (Chronic) Seizure disorder (Chronic) Tobacco dependence syndrome (Chronic) Post traumatic stress disorder (PTSD) (Chronic) Moderate major depression (Chronic) Hospital Course and Treatment Summary of Care Provided: This patient was seen in conjunction with HESHAM Salazar. I have independently interviewed and examined the patient and reviewed pertinent historical, laboratory, and other data. Please refer to HESHAM Salazar's note for his patient's presentation, findings, and recommendations. I have reviewed and his note and concur with his documentation 35-year-old female with past medical history of polysubstance use disorder who comes in for medical stabilization. Patient was managed for acute opiate withdrawal as well as acute alcohol withdrawal. For the most part of the hospital stay, she was lethargic. Patient was followed up by addiction medicine team and declines on any follow-up plan. She wants to be discharged to [place]. Patient was verbally aggressive to the staff. She was discharged home. Physical Exam: Gen: Appeared lethargic at a time of being seen, not pale, not jaundiced CVS:HS I +II, regular, no murmurs RESP: CTA GI: BS present and normal, soft, nontender, no palpable organs EXT:No edema - Physical Exam Vitals/I&O's: Vital Signs Temp Pulse Resp BP Pulse Ox 99.1 F 74 16 78/48 L 99 07/17/20 13:31 07/17/20 13:31 07/17/20 13:31 07/17/20 13:31 07/17/20 13:31 Oxygen Delivery Method Room Air Weight: 56.9 kg Body Mass Index (BMI) 23.7 Intake and Output for Last 24 Hours 07/15/20 07/16/20 07/17/20 23:59 23:59 23:59 Intake Total 442.08 / 442.08 Balance 442.08 / 442.08 Current Medications Acetaminophen (Acetaminophen 325 Mg Tablet) 650 mg PO Q6H PRN PRN PRN Reason: HEADACHE Dicyclomine HCl (Dicyclomine 10 Mg Capsule) 20 mg PO Q6H PRN PRN PRN Reason: Abdominal Discomfort Last Admin: 07/15/20 05:31 Dose: 20 mg Documented by: Folic Acid (Folic Acid 1 Mg Tablet) 1 mg PO DAILY@0800 [facility] Last Admin: 07/17/20 08:10 Dose: 1 mg Documented by: Gabapentin (Gabapentin 300 Mg Capsule) 300 mg PO Q8H PRN PRN PRN Reason: moderate to severe anxiety Last Admin: 07/15/20 02:53 Dose: 300 mg Documented by: Ibuprofen (Ibuprofen 400 Mg Tablet) 400 mg PO Q6H PRN PRN PRN Reason: Pain Score 1-10 Loperamide HCl (Loperamide 2 Mg Capsule) 2 mg PO Q4H PRN PRN PRN Reason: LOOSE STOOLS Methocarbamol (Methocarbamol 750 Mg Tablet) 1,500 mg PO Q6H PRN PRN PRN Reason: MUSCLE SPASM Last Admin: 07/16/20 14:11 Dose: 1,500 mg Documented by: Nicotine (Nicotine 14 Mg Patch) 14 mg TD DAILY [facility] Last Admin: 07/17/20 10:21 Dose: 14 mg Documented by: Phenobarbital (Phenobarbital 32.4 Mg Tablet) 64.8 mg PO Q4H [facility]; Taper Stop: 07/19/20 13:59 Last Admin: 07/17/20 10:23 Dose: Not Given Documented by: Thiamine HCl ([facility] Hydrochloride 100 Mg Tablet) [facility] Last Admin: 07/17/20 08:09 Dose: 100 mg Documented by: Inpatient E&M: [id number] [facility]
[2020-07-17 13:31] VITALS: BP 78/48; PULSE 74; RESP 16; TEMP 37.3; O2SAT 99
== END 2020-07-17 13:55 | disposition home or self-care (01) | DRG 773 ==
LOC: ED 23:28 → MS3 23:59
PROVIDERS: Admitting Provider Hospitalist; Emergency Provider Emergency Medicine; PCP Family Medicine; Visit Provider Internal Medicine
DX: F11.23 Opioid dependence with withdrawal (principal); E87.6 Hypokalemia; T40.1X1A Poisoning by heroin, accidental (unintentional), initial encounter; F15.10 Other stimulant abuse, uncomplicated; F10.239 Alcohol dependence with withdrawal, unspecified; F17.210 Nicotine dependence, cigarettes, uncomplicated; R45.1 Restlessness and agitation
CPT/HCPCS: 36415; 80048; 82077; 84484; 85025; 93005; 99285; 99406; J7030; A4216

== ENCOUNTER 2021-01-04 13:54 | Inpatient (IN) | payer MEDICAID, SELFPAY ==
[2021-01-04 13:55] VITALS: BP 127/82; PULSE 91; RESP 18; TEMP 36.3; O2SAT 100; BMI 30.9
[2021-01-04 15:47] LABS: Absolute Lymphocyte Count 1.53 X10^3/uL (0.83-4.51); Absolute Neutrophil Count 14.4 X10^3/uL (2.0-7.7); Basophil# 0.08 X10^3/uL; Basophil% 0.5 % (0-1); Eosinophil# 0.14 X10^3/uL; Eosinophils% 0.8 % (0-5); Hematocrit 48.8 % (37-47); Hemoglobin 16.2 g/dL (12.0-15.0); Lymphocyte # 1.53 X10^3/ul (0.83-4.51); Mean Corp Hgb Conc 33.2 g/dL (32-36); Mean Corpuscular Hgb 29.9 pg (27.0-32.0); Mean Platelet Vol. 11.6 fl (6.2-12.0); Monocyte# 0.75 X10^3/uL; Monocyte% 4.4 % (0-10); NRBC Flagged by Analyzer 0 % (0-5); Neutrophil % 84.8 % (47-70); Platelet Count 267 K/mm3 (150-450); RBC Distribution Width CV 11.4 % (11.6-14.6); RBC Distribution Width SD 37.7 fl (35.1-43.9); Red Blood Count 5.42 M/mm3 (4.2-5.4)
--- NOTE | 2021-01-04 16:06 | EDS_ITS ---
HPI History of Present Illness Chief Complaint: Overdose Narrative Narrative: The EMS call went out for a full arrest however patient was not responsive and was given Narcan, she soon improved. Now she is lucid and coherent. She tells me she snorts heroin almost daily, she was in detox a few months ago and she was sober for about 2 months. She now wishes to go through detox again. She tells me she drank alcohol yesterday but otherwise she has no other drugs other than the occasional meth. No fever or chills she is denying shortness of breath. [facility] Medical History (Updated 01/04/21 @ 16:[address] Aly Mcpherson MD) Depression Hepatitis C Heroin abuse PTSD (post-traumatic stress disorder) Seizure Seizure Home Medications NK 07/14/20 [History Last Taken Unknown] Allergy/AdvReac Type Severity Reaction Status Date / Time ciprofloxacin [From Cipro] Allergy Hives Verified 01/04/21 13:55 ciprofloxacin HCl Allergy Hives Verified 01/04/21 13:55 [From Cipro] levetiracetam [From Keppra] Allergy SEIZURES Verified 01/04/21 13:55 morphine Allergy Shortness Verified 01/04/21 13:55 of breath ondansetron HCl [From Zofran] Allergy Hives Verified 01/04/21 13:55 Sulfa (Sulfonamide Allergy Hives Verified 01/04/21 13:55 Antibiotics) acetaminophen [From [place]] AdvReac STOMACH Verified 01/04/21 13:55 CRAMPS hydrocodone bitartrate AdvReac STOMACH Verified 01/04/21 13:55 [From [place]] CRAMPS ketorolac tromethamine AdvReac Abd Verified 01/04/21 13:55 [From Toradol] cramps/diarrhea metoclopramide HCl AdvReac TACHY Verified 01/04/21 13:55 [From Reglan] ondansetron [From Zofran] AdvReac Other Verified 01/04/21 13:55 Social History Smoking Status: Current every day smoker tobacco type: cigarettes ROS ROS ED ROS Narrative Past medical history: Reviewed Medications: Reviewed Social history: Noncontributory Review of systems: All systems negative except as indicated General: No fever Eyes: No visual changes ENT: No upper airway congestion, normal voice Neck: No neck pain Cardiovascular: No chest pain Respiratory: No shortness of breath or cough Gastrointestinal: No abdominal pain, nausea vomiting or diarrhea Genitourinary: No dysuria Musculoskeletal: Denies myalgias no difficulty with ambulation Skin: No rash Neurological: No focal deficit Psych: No recent behavioral changes Hematologic: No easy bleeding or easy bruising EXAM Physical Exam Narrative Exam Narrative: Physical exam General: Patient is tearful but does not appear in any distress Head: Normocephalic, Atraumatic Eyes: Conjunctiva not pale ENT: Moist mucous membranes Neck: Supple, Nontender, No lymphadenopathy Cardiovascular: Regular rate, Regular rhythm Respiratory: No distress, CTA bilaterally Abdomen: Soft, Nontender, Nondistended Back: Nontender, Normal Inspection. Negative for: CVA tenderness Extremities: Nontender, No edema Skin: Normal color, No rash Neurological: Alert, Normal Strength, Normal Sensation Psychological: Anxious Const Vital Signs: 01/04/21 13:55 Temperature 97.4 F L Temperature Source Temporal Pulse Rate 91 Respiratory Rate 18 Blood Pressure 127/82 H Blood Pressure Mean 97 Pulse Ox 100 Oxygen Delivery Method Room Air MDM MDM MDM Narrative Medical decision making narrative: Patient will be medically cleared she is requesting detox. I called the hospitalist for admission. Lab Data Labs: Laboratory Results - last 24 hr 01/04/21 15:30 WBC 17.0 H RBC 5.42 H Hgb 16.2 H Hct 48.8 H MCV 90.0 MCH 29.9 MCHC 33.2 RDW Std Deviation 37.7 RDW Coeff of [place] 11.4 L Plt Count 267 MPV 11.6 Immature Gran % (Auto) 0.500 Neut % (Auto) 84.8 H Lymph % (Auto) 9.0 L [place] % (Auto) 4.4 Eos % (Auto) 0.8 Baso % (Auto) 0.5 Absolute Neuts (auto) 14.4 H Absolute Lymphs (auto) 1.53 Nucleated RBC % 0 Discharge Plan Triage Chief Complaint: Overdose ED Provider: Aly Mcpherson Dx/Rx/DC Orders Clinical Impression: Heroin abuse, Opiate dependence, Overdose Prescriptions: No Action NK RF: 0 Primary Care Provider: Rashaun Narvaez Referrals: Rashaun Narvaez MD [Primary Care Provider] - Disposition Disposition: Acute Care [facility]
[2021-01-04 16:09] LABS: AST(SGOT) 20 U/L (15-37); Alanine Aminotransfer ALT/SGPT 22 U/L (13-56); Albumin, Serum 4.5 g/dL (3.2-5.0); Alkaline Phosphatase 96 U/L (45-117); Anion Gap 6 (5-15); BUN 15 mg/dL (7-18); BUN/Creat Ratio 16.5 RATIO (10-20); Calcium,Total 9.2 mg/dL (8.5-10.1); Chloride 107 mmol/L (98-107); Creatinine, Serum 0.91 mg/dL (0.55-1.02); EST Glomerular Filtration Rate 75 mL/min (>60); Est Glom Filt Rate - Afr Amer 90 mL/min (>60); Estimated Creatinine Clearance 65.11 ml/min; Globulin 4.7 g/dL (2.2-4.2); Glucose 97 mg/dL (74-106); Potassium 3.8 mmol/L (3.5-5.1); Protein, Total 9.2 g/dL (6.4-8.2); Sodium Level 136 mmol/L (136-145)
[2021-01-04 16:18] LABS: Alcohol, Blood (Medical)-Serum < 3.0 mg/dL
[2021-01-04 16:20] VITALS: BP 94/78; PULSE 74; RESP 14; O2SAT 92
[2021-01-04 16:29] VITALS: BP 94/78; PULSE 74; RESP 14; TEMP 36.6; O2SAT 92
--- NOTE | 2021-01-04 16:56 | HP.PCM.HOS_ITS ---
HPI - General General Date of Admission: 01/04/21 Date of Service: 01/04/21 Chief Complaint: Heroin overdose, heroin withdrawal HPI Narrative CARITO BRIGHT, is a 35 F who presents to the emergency room at [facility] after being brought in by squad when she was found unresponsive at home after snorting heroin. The person who was with the patient at the time that she became unresponsive called the squad, they administered Narcan and the patient came around. Patient admits to using heroin on a daily basis-she does not inject she snorts, she also drinks but was vague about the amount of alcohol that she drinks, she states she last drank yesterday. Patient also uses methamphetamines. Last time the patient went through any detox services was in July of this year, she was admitted at that time for heroin abuse, alcohol abuse, and amphetamine abuse. At that time, patient was discharged from the hospital due to refusal to work with addiction geriatric social work professor and setting up an outpatient program for detox. Lab work done in the emergency room was remarkable for WBC of 17,000 and patient's chemistry profile was unremarkable. Patient's ethyl alcohol level was less than 3. Patient will be admitted for heroin detox services, I am unsure whether she actually needs alcohol detox services this admission and I have asked nursing to try to determine how much he actually drinks on a daily basis. Patient appears to be jittery on exam today but she is alert and oriented x3. [facility] Medical History (Updated 01/04/21 @ 16:[address] Aly Mcpherson MD) Depression Hepatitis C Heroin abuse PTSD (post-traumatic stress disorder) Seizure Seizure Home Medications NK 07/14/20 [History Last Taken Unknown] Allergy/AdvReac Type Severity Reaction Status Date / Time ciprofloxacin [From Cipro] Allergy Hives Verified 01/04/21 13:55 ciprofloxacin HCl Allergy Hives Verified 01/04/21 13:55 [From Cipro] levetiracetam [From Keppra] Allergy SEIZURES Verified 01/04/21 13:55 morphine Allergy Shortness Verified 01/04/21 13:55 of breath ondansetron HCl [From Zofran] Allergy Hives Verified 01/04/21 13:55 Sulfa (Sulfonamide Allergy Hives Verified 01/04/21 13:55 Antibiotics) acetaminophen [From [place]] AdvReac STOMACH Verified 01/04/21 13:55 CRAMPS hydrocodone bitartrate AdvReac STOMACH Verified 01/04/21 13:55 [From [place]] CRAMPS ketorolac tromethamine AdvReac Abd Verified 01/04/21 13:55 [From Toradol] cramps/diarrhea metoclopramide HCl AdvReac TACHY Verified 01/04/21 13:55 [From Reglan] ondansetron [From Zofran] AdvReac Other Verified 01/04/21 13:55 Social History Smoking Status: Current every day smoker tobacco type: cigarettes ROS Constitutional Constitutional: Denies anorexia, change in weight, chills, fatigue, fever(s), malaise or night sweats Eyes Eyes: Denies blurry vision, change in vision or double vision ENT HEENT: Denies abnormal hearing, ear pain, headache(s), hearing loss or nasal congestion Cardiovascular Cardiovascular: Denies chest pain, dyspnea on exertion, lightheadedness, ort hopnea or palpitations Respiratory/Chest Respiratory/Chest: Denies cough, dyspnea, excessive phlegm production, productive cough, shortness of breath at rest or shortness of breath with exertion Gastrointestinal Gastrointestinal: Denies abdominal pain, diarrhea or loose stools Genitourinary Genitourinary: Denies burning urination or hematuria Musculoskeletal Musculoskeletal: Denies arthralgias, back pain, joint pain or joint stiffness Neurologic Neurologic: Denies abnormal gait, abnormal speech, confusion, dizziness or focal weakness Psychiatric Psychiatric: Reports depression; Denies homicidal ideation or suicidal ideation Endocrine Endocrinology: Denies change in body appearance, cold intolerance, excessive sweating or heat intolerance Hematologic/Lymphatic Hematologic/Lymphatic: Denies anemia, easy bleeding or easy bruising Allergic/Immunologic Allergic/Immunologic: Denies eczemia or asthma Vital Signs Vital Signs Vital Signs: 01/04/21 13:55 01/04/21 16:20 01/04/21 16:29 Temperature 97.4 F L 98 F Temperature Source Temporal Temporal Pulse Rate 91 74 74 Respiratory Rate 18 14 14 Blood Pressure 127/82 H 94/78 94/78 Blood Pressure Mean 97 83 83 Pulse Ox 100 92 92 Oxygen Delivery Method Room Air Room Air Room Air Weight Weight: 74.3 kg Body Mass Index (BMI) 30.9 Physical Exam Const alert and oriented x3 General Appearance: cooperative HEENT normocephalic, head/scalp atraumatic, hearing grossly normal bilaterally and moist oral mucous membranes Eyes PERRL, EOMs intact bilaterally and conjunctivae normal Neck no lymphadenopathy Resp normal respiratory effort, no retractions, no use of accessory muscles and clear to auscultation bilaterally Cardio regular rate, regular rhythm, S1 normal heart sound, S2 normal heart sound, no murmurs, no rub and no gallops GI normal to inspection, nondistended, normoactive bowel sounds, soft to palpation, non-tender and non-distended Extremity normal to inspection and no clubbing, cyanosis or edema Skin no rashes or lesions noted, no wounds, skin turgor normal and no jaundice Neuro oriented x3, CN's II-XII intact bilaterally and no focal motor deficits Sensorium / Orientation: awake and alert Motor Exam: strength 5/5 throughout Psych Mood & Affect: anxious Results Lab / Micro Data Result Diagrams: 01/04/21 15:30 01/04/21 15:30 Labs: Laboratory Results - last 24 hr 01/04/21 15:30: WBC 17.0 H, RBC 5.42 H, Hgb 16.2 H, Hct 48.8 H, MCV 90.0, MCH 29.9, MCHC 33.2, RDW Std Deviation 37.7, RDW Coeff of [place] 11.4 L, Plt Count 267, MPV 11.6, Immature Gran % (Auto) 0.500, Neut % (Auto) 84.8 H, Lymph % (Auto) 9.0 L, [place] % (Auto) 4.4, Eos % (Auto) 0.8, Baso % (Auto) 0.5, Absolute Neuts (auto) 14.4 H, Absolute Lymphs (auto) 1.53, Nucleated RBC % 0 01/04/21 15:30: Sodium 136, Potassium 3.8, Chloride 107, Carbon Dioxide 23.0, Anion Gap 6, BUN 15, Creatinine 0.91, Estim Creat Clear Calc 65.11, Est GFR (MDRD) Af Amer 90, Est GFR (MDRD) Non-Af 75, BUN/Creatinine Ratio 16.5, Glucose 97, Calcium 9.2, Total Bilirubin 0.70, AST 20, ALT 22, Alkaline Phosphatase 96, Total Protein 9.2 H, Albumin 4.5, Globulin 4.7 H, Albumin/Globulin Ratio 1.0 01/04/21 15:30: Ethyl Alcohol < 3.0 Micro: Microbiology 01/04/21 14:33 Mucosa - Nose SARS-CoV-2 Antigen (Rapid) - Final Assessment & Plan Assessment/Plan (1) Heroin abuse: PLAN: 1. Acute opiate withdrawal-patient will be admitted to [facility], orders were entered using the opiate detox order set, patient will meet with addiction geriatric social work professor, the last time they met with the patient in July 2020, this was not a good meeting and the patient refused to cooperate with addiction geriatric social work professor. #2 polydrug abuse-patient uses methamphetamines in addition to snorting heroin, she also uses alcohol, according to nursing, she told them that she drinks either 1/5 of liquor a day or an 18 pack of beer, due to this, I will place her on Ativan for alcohol detox, I am doubtful that the patient is telling the truth about the amount of alcohol she ingests on a daily basis, her alcohol level today was less than 3, she also told me she has not drank anything since yesterday. #3 acute heroin overdose-patient is alert and oriented x3 now, she was given 2 mg of Narcan by squad #4 leukocytosis-probably stress related, patient does not have any evidence of infection
[2021-01-04 17:31] VITALS: BMI 30.2
[2021-01-04 17:42] VITALS: BP 115/64; PULSE 67; RESP 16; TEMP 36.1; O2SAT 97
[2021-01-04] MEDS: proMETHazine 25 MG Tablet PO (18:41)
[2021-01-04] MEDS: Dicyclomine 10 MG Capsule 20 MG PO (19:13)
[2021-01-04] MEDS: LORazepam 1 MG Tablet 2 MG PO (19:13)
[2021-01-04] MEDS: Buprenorphine HCl 2 MG TAB.SUBL SL (19:14)
[2021-01-04 21:11] LABS: Amphetamine Urine VISTA POSITIVE (<1000 ng/mL); Barbiturate Urine VISTA NEGATIVE (< 200 ng/mL); Benzodiazepine Urine VISTA POSITIVE (< 200 ng/mL); Cocaine Urine VISTA NEGATIVE (< 300 ng/mL); Ecstacy Urine VISTA NEGATIVE (< 500 ng/mL); Methadone Urine VISTA NEGATIVE (< 300 ng/mL); PCP Urine VISTA NEGATIVE (< 25 ng/mL); THC Urine VISTA POSITIVE (< 50 ng/mL); Vista UDS pH Range 5
[2021-01-04 22:24] VITALS: BP 105/91; PULSE 60; RESP 16; TEMP 36.8; O2SAT 100
[2021-01-04] MEDS: traZODone 100 MG Tablet PO (22:32)
[2021-01-04] MEDS: cloNIDine HCl 0.1 MG Tablet PO (22:32)
[2021-01-04] MEDS: Methocarbamol 750 MG Tablet 1500 MG PO (22:32)
[2021-01-04] MEDS: hydrOXYzine PAM 25 MG Capsule PO (23:11)
[2021-01-05] VITALS (8 sets, daily range): BP systolic 90–137; BP diastolic 59–103; PULSE 63–82; RESP 16–18; TEMP 36.4–37.1; O2SAT 92–100
[2021-01-05] MEDS: Buprenorphine HCl 2 MG TAB.SUBL SL ×3 (02:51→17:39)
[2021-01-05] MEDS: proMETHazine 25 MG Tablet PO ×2 (03:01→15:18)
[2021-01-05] MEDS: Loperamide 2 MG Capsule PO (03:01)
[2021-01-05] MEDS: Methocarbamol 750 MG Tablet 1500 MG PO ×2 (06:24→15:18)
[2021-01-05] MEDS: Dicyclomine 10 MG Capsule 20 MG PO (06:24)
--- NOTE | 2021-01-05 07:26 | PCM.PN.HOSP ---
Subjective Subjective Patient is a 35-year-old lady with history of polysubstance abuse admitted with acute opiate withdrawal Objective Data Objective Data Vital Signs: Vital Signs Temp Pulse Resp BP Pulse Ox 97.7 F L 66 16 97/59 L 100 01/05/21 05:56 01/05/21 06:23 01/05/21 05:56 01/05/21 06:23 01/05/21 05:56 Oxygen Delivery Method Room Air Weight: 72.62 kg Body Mass Index (BMI) 30.2 Intake & Output: Intake and Output for Last 24 Hours 01/03/21 01/04/21 01/05/21 23:59 23:59 23:59 Intake Total 450 / 450 600 / 600 Balance 450 / 450 600 / 600 Lab / Micro Data Result Diagrams: 01/04/21 15:30 01/04/21 15:30 Labs: Laboratory Results - last 24 hr 01/04/21 15:30: WBC 17.0 H, RBC 5.42 H, Hgb 16.2 H, Hct 48.8 H, MCV 90.0, MCH 29.9, MCHC 33.2, RDW Std Deviation 37.7, RDW Coeff of [place] 11.4 L, Plt Count 267, MPV 11.6, Immature Gran % (Auto) 0.500, Neut % (Auto) 84.8 H, Lymph % (Auto) 9.0 L, [place] % (Auto) 4.4, Eos % (Auto) 0.8, Baso % (Auto) 0.5, Absolute Neuts (auto) 14.4 H, Absolute Lymphs (auto) 1.53, Nucleated RBC % 0 01/04/21 15:30: Sodium 136, Potassium 3.8, Chloride 107, Carbon Dioxide 23.0, Anion Gap 6, BUN 15, Creatinine 0.91, Estim Creat Clear Calc 65.11, Est GFR (MDRD) Af Amer 90, Est GFR (MDRD) Non-Af 75, BUN/Creatinine Ratio 16.5, Glucose 97, Calcium 9.2, Total Bilirubin 0.70, AST 20, ALT 22, Alkaline Phosphatase 96, Total Protein 9.2 H, Albumin 4.5, Globulin 4.7 H, Albumin/Globulin Ratio 1.0 01/04/21 15:30: Ethyl Alcohol < 3.0 01/04/21 20:44: Urine Opiates Screen NEGATIVE, Urine Methadone Screen NEGATIVE, Ur Barbiturates Screen NEGATIVE, Ur Phencyclidine Scrn NEGATIVE, Ur Amphetamines Screen POSITIVE H, U Methamphetamin-MDMA NEGATIVE, U Benzodiazepines Scrn POSITIVE H, Urine Cocaine Screen NEGATIVE, U Cannabinoids Screen POSITIVE H, Ur Drug Screen Comment Micro: Microbiology 01/04/21 14:33 Mucosa - Nose SARS-CoV-2 Antigen (Rapid) - Final Physical Exam Narrative GENERAL: cooperative HEENT: Atraumatic; EYES; Anicteric, Normal Conjunctiva NECK; supple, normal thyroid, RESPIRATORY: Diminished to auscultation CARDIOVASCULAR: Regular S1 S2, GI: soft, normoactive bowel sounds, : No Renal angle tenderness; EXTREMITIES: No edema, no clubbing, MUSCULOSKELETAL: no muscle waisting NEURO: Awake; no lateralizing signs. SKIN: No Rash PSYCH; Flat affect Assessment & Plan Assessment/Plan (1) Heroin abuse: PLAN: Patient is a 35-year-old lady with history of polysubstance abuse admitted with acute opiate withdrawal 1. Acute opiate withdrawal ?Patient has been admitted to regular nursing floor currently being managed with Subutex taper 2. Chronic alcohol dependence ?With significant risk for possible alcohol withdrawal patient was placed on Ativan 3. Polysubstance abuse ?Counseled on cessation 4. Tobacco dependence - Counseled on cessation, offered nicotine patch for tobacco cravings 5. DVT prophylaxis ?Low risk Charges/Coding Visit Charges Inpatient E&M: 95102 Subs Hosp L2
[2021-01-05] MEDS: Folic Acid 1 MG Tablet PO (08:18)
[2021-01-05] MEDS: Thiamine Hydrochloride 100 MG Tablet PO (08:18)
[2021-01-05] MEDS: hydrOXYzine PAM 25 MG Capsule PO ×2 (08:18→15:18)
[2021-01-05] MEDS: Gabapentin 300 MG Capsule PO ×2 (08:18→20:46)
[2021-01-05] MEDS: cloNIDine HCl 0.1 MG Tablet PO (08:32)
--- NOTE | 2021-01-05 10:55 | ADDICTION ---
This procedure writer met with PT to conduct ASAM, MSE, AUDIT assessments and to plan for d/c. PT A+Ox4 and participated actively. All assessments completed, faxed to [facility] and placed in PT's chart. PT plans to f/u with individual counselor (Pattie) at [facility] for follow-up counseling and MAT services. PT has an appointment scheduled on 01/08/21 @10am. PT did not indicate a need for transportation post d/c from [facility].
[2021-01-05] MEDS: traZODone 100 MG Tablet PO (20:46)
[2021-01-05] MEDS: LORazepam 1 MG Tablet 2 MG PO (20:47)
[2021-01-06 01:46] VITALS: BP 92/58; PULSE 67; RESP 16; TEMP 36.9; O2SAT 92
[2021-01-06] MEDS: Buprenorphine HCl 2 MG TAB.SUBL SL ×3 (01:52→18:55)
[2021-01-06] MEDS: hydrOXYzine PAM 25 MG Capsule PO ×2 (01:53→07:45)
[2021-01-06] MEDS: Methocarbamol 750 MG Tablet 1500 MG PO ×4 (01:53→22:49)
[2021-01-06 06:02] VITALS: BP 105/71; PULSE 83; RESP 18; TEMP 36.5; O2SAT 100
[2021-01-06] MEDS: proMETHazine 25 MG Tablet PO ×2 (06:13→22:49)
[2021-01-06] MEDS: cloNIDine HCl 0.1 MG Tablet PO ×3 (06:13→23:42)
[2021-01-06] MEDS: Loperamide 2 MG Capsule PO ×2 (06:13→15:26)
--- NOTE | 2021-01-06 07:06 | PCM.PN.HOSP ---
Subjective Subjective Patient seen complains of itching as well as having diarrhea. Objective Data Objective Data Vital Signs: Vital Signs Temp Pulse Resp BP Pulse Ox 97.7 F L 83 18 105/71 100 01/06/21 06:02 01/06/21 06:02 01/06/21 06:02 01/06/21 06:02 01/06/21 06:02 Oxygen Delivery Method Room Air Weight: 72.62 kg Body Mass Index (BMI) 30.2 Intake & Output: Intake and Output for Last 24 Hours 01/04/21 01/05/21 01/06/21 23:59 23:59 23:59 Intake Total 450 / 450 1750 / 1750 500 / 500 Balance 450 / 450 1750 / 1750 500 / 500 Lab / Micro Data Result Diagrams: 01/04/21 15:30 01/04/21 15:30 Micro: Microbiology 01/04/21 14:33 Mucosa - Nose SARS-CoV-2 Antigen (Rapid) - Final Physical Exam Narrative GENERAL: cooperative HEENT: Atraumatic; EYES; Anicteric, Normal Conjunctiva NECK; supple, normal thyroid, RESPIRATORY: Diminished to auscultation CARDIOVASCULAR: Regular S1 S2, GI: soft, normoactive bowel sounds, : No Renal angle tenderness; EXTREMITIES: No edema, no clubbing, MUSCULOSKELETAL: no muscle waisting NEURO: Awake; no lateralizing signs. SKIN: No Rash PSYCH; Flat affect Assessment & Plan Assessment/Plan (1) Heroin abuse: PLAN: Patient is a 35-year-old lady with history of polysubstance abuse admitted with acute opiate withdrawal 1. Acute opiate withdrawal ?Patient has been admitted to regular nursing floor currently being managed with Subutex taper -01/06/2021; patient still remains symptomatic 2. Chronic alcohol dependence ?With significant risk for possible alcohol withdrawal patient was placed on Ativan 3. Polysubstance abuse ?Counseled on cessation 4. Tobacco dependence - Counseled on cessation, offered nicotine patch for tobacco cravings 5. DVT prophylaxis ?Low risk Charges/Coding Visit Charges Inpatient E&M: 34899 Subs Hosp L2
[2021-01-06 07:28] VITALS: BP 109/80; PULSE 70; RESP 14; TEMP 36.6; O2SAT 100
[2021-01-06] MEDS: Gabapentin 300 MG Capsule PO (07:45)
[2021-01-06] MEDS: Thiamine Hydrochloride 100 MG Tablet PO (07:45)
[2021-01-06] MEDS: Acetaminophen 500 MG Tablet PO (07:45)
[2021-01-06] MEDS: Folic Acid 1 MG Tablet PO (07:45)
[2021-01-06] MEDS: LORazepam 1 MG Tablet 2 MG PO ×3 (07:46→22:49)
--- NOTE | 2021-01-06 10:45 | ADDICTION ---
This screen writer stopped in to discuss relapse prevention and treatment options. PT requests potential residential facilities in [place]. PT would like to go to treatment outside of [place] once she has her appointment at [facility] on 01.08.21 post d/c. This screen writer offered numerous resources for [place] as well as residential options with [place].
[2021-01-06 12:00] VITALS: BP 118/70; PULSE 79; RESP 16; TEMP 36.3; O2SAT 99
[2021-01-06] MEDS: QUEtiapine 100 MG Tablet 200 MG PO ×2 (12:28→22:15)
[2021-01-06 18:00] VITALS: BP 101/79; PULSE 81; RESP 14; TEMP 36.7; O2SAT 97
[2021-01-06 22:07] VITALS: BP 116/86; PULSE 88; RESP 16; TEMP 37.1; O2SAT 97
[2021-01-06] MEDS: Amitriptyline 25 MG Tablet PO (22:15)
[2021-01-06] MEDS: Sertraline 50 MG Tablet PO (22:15)
[2021-01-06] MEDS: traZODone 100 MG Tablet PO (22:19)
--- NOTE | 2021-01-06 22:45 | NURSING ---
This rn heard yelling in the hallway, went toward pt room. pt in alex yelling about how low voltage electrician moved her menu from overbed table to clean food that she had spilled on table and floor. asked pt to return to her room, low voltage electrician was cleaning food up. asked pt to stop yelling and explain what she needed stated she is having a panic attack from withdrawal and needs her ativan, something for nausea, and aches. pt asked if she could not have a male caregiver, primary rn aware and medication given. low voltage electrician left room and asked not to go in pt room to have female low voltage electrician answer her call light, pt returned to bed and watching tv.
[2021-01-07 04:17] VITALS: BP 116/74; PULSE 85; RESP 16; TEMP 36.9; O2SAT 92
[2021-01-07] MEDS: Buprenorphine HCl 2 MG TAB.SUBL SL (06:03)
[2021-01-07 10:00] VITALS: BP 112/70; PULSE 83; RESP 16; TEMP 36.8; O2SAT 98
[2021-01-07] MEDS: Thiamine Hydrochloride 100 MG Tablet PO (10:22)
[2021-01-07] MEDS: QUEtiapine 100 MG Tablet 200 MG PO (10:22)
[2021-01-07] MEDS: Folic Acid 1 MG Tablet PO (10:22)
[2021-01-07] MEDS: cloNIDine HCl 0.1 MG Tablet PO (10:27)
[2021-01-07] MEDS: Loperamide 2 MG Capsule PO (10:27)
--- NOTE | 2021-01-07 13:51 | PCM.DC ---
Discharge Instructions Diet Discharge Diet: 1800 Calorie Control Diet Activity Discharge Activity: Return to Normal Activity and May Not Drive Weight Bearing Status: Weight bearing as tolerated Dressing / Incision Call your doctor if you observe: Fever of 101 or Higher, Coldness, Increased Pain, Numbness or Tingling, Change in Color, Inability to urinate, Inability to have a bowel movement, Shortness of breath, Dizziness, Fainting spells, Swelling in the ankles, Chest pain, Prolonged hiccupping, Increased palpitations (irregular heartbeat), Calf discomfort and Uncontrolled pain Follow Up Care Test Results: Test results from this visit will be discussed in further detail at your follow-up appointment, if applicable. Discharge Plan Admission Admit Date/Time: 01/04/21 16:27 Primary Reason for Your Visit: Acute opioid withdrawal syndrome Attending Provider: Greg Salvador Primary Care Provider: Rashaun Narvaez Discharge Orders/Prescriptions Prescriptions: New thiamine HCl (vitamin B1) [Vitamin B-1] 100 mg Tablet 100 mg PO DAILYCM Qty: 30 RF: 0 nicotine 21 mg/24 hr Patch 24 Hour 21 mg transdermal DAILY Qty: 30 RF: 0 folic acid 1 mg Tablet 1 mg PO DAILY@0800 Qty: 30 RF: 0 Continued trazodone 50 mg Tablet 50 mg PO QHS PRN (Reason: Anxiety) RF: 0 quetiapine 200 mg tablet 200 mg PO BID RF: 0 hydroxyzine pamoate 25 mg capsule 50 mg PO DAILY RF: 0 amitriptyline 25 mg tablet 25 mg PO DAILY RF: 0 sertraline 50 mg tablet 50 mg PO DAILY RF: 0 Referrals / Follow Up: Rashaun Narvaez MD [Primary Care Provider] - In 1 Week Disposition Disposition (needs filled in before D/C Order can be placed): Home, Self Care
--- NOTE | 2021-01-07 13:59 | DS.PCM_ITS ---
Providers Date of Admission: 01/04/21 Primary Care Physician: Dr. Rashaun Narvaez MD Reason For Visit: OPOID WITHDRAWAL Diagnosis Discharge Diagnosis (1) Heroin abuse: Status: Acute Code(s): F11.10 - Opioid abuse, uncomplicated Medications at Discharge Home Medications amitriptyline 25 mg PO DAILY 01/05/21 hydroxyzine pamoate 50 mg PO DAILY 01/05/21 quetiapine 200 mg PO BID 01/05/21 sertraline 50 mg PO DAILY 01/05/21 trazodone 50 mg PO QHS PRN 01/05/21 folic acid 1 mg PO DAILY@0800 #30 tab 01/07/21 nicotine 21 mg TRANSDERMAL DAILY #30 ea 01/07/21 thiamine HCl (vitamin B1) [Vitamin B-1] 100 mg PO DAILYCM #30 tab 01/07/21 Hospital Course Summary of Care Provided Hospital Course: This 35-year-old was admitted for acute opioid withdrawal syndrome. She has history of chronic opioid use and dependence. Patient was admitted on regular medicine for started on Subutex along with other adjunctive supportive medications. Patient also with chronic alcohol dependence and tolerance and significant risk for acute 4018 when. Patient was counseled for cessation of polysubstance use. Patient also history of smoking, nicotine dependence. On nicotine patch. Patient was seen by egg caser and outpatient rehab was set up by [facility]. Discharge medication reconciliation done. Discharge follow-up instructions completed. Discharge process discussed with the patient and all questions were answered to patient's satisfaction. Total time spent, exact 35 minutes on discharge meds reconciliation, examin ation, coordination of care with nurses and ancillary staff, review of imaging and blood test and discussion with the patient on follow-up instructions Physical Exam Narrative Physical exam General: Alert, Oriented x3, Cooperative HEENT: Atraumatic, PERRLA, EOMI, Normocephalic Oral: No Gingival or Mucosal Lesions/ Ulcerations Neck: Supple, No JVD, Negative Carotid Bruits Lungs: Air entry diminished in bilateral lung bases. No crepitation/rhonchi Cardiovascular: Regular rate, Regular Rhythm, Normal S1, Normal S2, No murmurs Abdomen: Bowel Sounds Present, Soft, Non Tender, Non-Distended : No renal angle tenderness. No suprapubic tenderness. Extremities: No edema, Capillary Refill Less than 3 Seconds Skin: No rashes, No breakdown Musculoskeletal: No Tenderness to Palpation of Joints or Extremities Neurological: Cranial nerves II-XII grossly intact, DTR 2+/4 and Symmetrical, Neuro grossly intact Psych/Mental Status: Flat affect, mild anxiety Weight / BMI Weight Weight: 160 lb 1.6 oz Body Mass Index (BMI) 30.2 ABG / Lab / Microbiology Data Result Diagrams: 01/04/21 15:30 01/04/21 15:30 Microbiology: Microbiology 01/04/21 14:33 Mucosa - Nose SARS-CoV-2 Antigen (Rapid) - Final D/C Instructions Discharge Diet: 1800 Calorie Control Diet Weight Bearing Status: Weight bearing as tolerated Call your doctor if you observe: Fever of 101 or Higher, Coldness, Increased Pain, Numbness or Tingling, Change in Color, Inability to urinate, Inability to have a bowel movement, Shortness of breath, Dizziness, Fainting spells, Swelling in the ankles, Chest pain, Prolonged hiccupping, Increased palpitations (irregular heartbeat), Calf discomfort and Uncontrolled pain Meaningful Use Info Meaningful Use Diagnoses (Choose all that apply): None applicable Discharge Plan Admission Admit Date/Time: 01/04/21 16:27 Primary Reason for Your Visit: Acute opioid withdrawal syndrome Attending Provider: Greg Salvador Primary Care Provider: Rashaun Narvaez Discharge Orders/Prescriptions Prescriptions: New thiamine HCl (vitamin B1) [Vitamin B-1] 100 mg Tablet 100 mg PO DAILYCM Qty: 30 RF: 0 nicotine 21 mg/24 hr Patch 24 Hour 21 mg transdermal DAILY Qty: 30 RF: 0 folic acid 1 mg Tablet 1 mg PO DAILY@0800 Qty: 30 RF: 0 Continued trazodone 50 mg Tablet 50 mg PO QHS PRN (Reason: Anxiety) RF: 0 quetiapine 200 mg tablet 200 mg PO BID RF: 0 hydroxyzine pamoate 25 mg capsule 50 mg PO DAILY RF: 0 amitriptyline 25 mg tablet 25 mg PO DAILY RF: 0 sertraline 50 mg tablet 50 mg PO DAILY RF: 0 Referrals / Follow Up: Rashaun Narvaez MD [Primary Care Provider] - 01/14/21 10:40 am (with doctor micky) Disposition Disposition (needs filled in before D/C Order can be placed): Home, Self Care Charges/Coding Visit Charges Inpatient E&M: 16407 Disch Hosp
== END 2021-01-07 15:15 | disposition home or self-care (01) | DRG 773 ==
LOC: ED 16:11 → MS3 16:41
PROVIDERS: Admitting Provider Internal Medicine; Emergency Provider Emergency Medicine; PCP Family Medicine; Visit Provider Internal Medicine
DX: F11.23 Opioid dependence with withdrawal (principal); F17.210 Nicotine dependence, cigarettes, uncomplicated; F15.10 Other stimulant abuse, uncomplicated; T40.1X1A Poisoning by heroin, accidental (unintentional), initial encounter; D72.829 Elevated white blood cell count, unspecified; F10.20 Alcohol dependence, uncomplicated
CPT/HCPCS: 80053; 80307; 82077; 85025; 87426; 99283; 99406

== ENCOUNTER → 2025-05-13 | Outpatient (CLI) | payer MEDICAID, SELFPAY ==
[2025-05-13 12:28] LABS: Hematocrit 36.6 % (37-47); Hemoglobin 12.6 g/dL (12.0-15.0); Immature Granulocytes Count 0.010 X10^3/uL (0.0-0.0); Mean Corp Hgb Conc 34.4 g/dL (32-36); Mean Corpuscular Volume 85.3 fL (81-99); Mean Platelet Vol. 12.6 fl (6.2-12.0); NRBC Flagged by Analyzer 0 % (0-5); Platelet Count 199 K/mm3 (150-450); RBC Distribution Width CV 12.0 % (11.6-14.6); RBC Distribution Width SD 37.4 fl (35.1-43.9); Red Blood Count 4.29 M/mm3 (4.2-5.4); White Blood Count 6.6 K/mm3 (4.4-11.0)
[2025-05-13 12:35] LABS: AST(SGOT) 15 U/L (<=31); Alanine Aminotransfer ALT/SGPT 8 U/L (<=34); Albumin, Serum 4.0 g/dL (3.5-5.0); Alkaline Phosphatase 85 U/L (35-104); Anion Gap 9 (7-18); BUN 12 mg/dL (4-19); BUN/Creat Ratio 17.3 RATIO (10-20); Calcium,Total 9.0 mg/dL (7.6-11.0); Carbon Dioxide 25.5 mmol/L (20.0-29.0); Chloride 105 mmol/L (96-106); Globulin 2.2 g/dL (2.2-4.2); Glucose 83 mg/dL (70-99); Potassium 4.5 mmol/L (3.5-5.1)
[2025-05-20 14:09] LABS: HEPATITIS B SURFACE AG Negative (Negative)
== END | disposition home or self-care (01) ==
LOC: CIMLAB 10:50
PROVIDERS: Referring Provider Nurse Practitioner Family; Visit Provider Nurse Practitioner Family
DX: F32.1 Major depressive disorder, single episode, moderate (principal); G40.909 Epilepsy, unspecified, not intractable, without status epilepticus; B19.20 Unspecified viral hepatitis C without hepatic coma
CPT/HCPCS: 36415; 80053; 84439; 84443; 85025; 86705; 86709; 87340